=== PATIENT | male | born 1960 | race Two or more races ===

== ENCOUNTER 2024-11-24 07:10 | Outpatient (AMB) | payer OTHER, SELFPAY ==
--- OUTSIDE RECORDS SUMMARY | 2024-11-24 07:12 | XMS_ITS | Encounter Summary ---
Author Organization [employer] Address [address] [facility] [address] [place] [address] Care Team Providers Care Public Health Representative Name Role Phone Donta Mike MD Primary Care Prov ider Reason for Visit * Reason Comments Med Change Request Encounter Details Date Type Department Care Team ([facility] st Contact Info) Description 11/22/2024 Refill C [facility] [address] [place], [place] [phone] Donta Mike MD [address] [place] [address] Social History Tobacco Use Types Packs/Day Years Used Date Smoking Tobacco: Every Day Cigarettes 0.5 43.5 Started: 1980 Smokeless Tobacco: Never Alcohol Use Standard Drinks/Week Comments Never 0 (1 standard drink = 0.6 oz pur e alcohol) Depression Answer Date Recorded Patient Health Questionnaire-9 Score 17 09/26/2024 Patient Health Questionnaire-9 Score 17 09/26/2024 Last PHQ-9: Questionnaire Data Not on file 0 09/26/2024 Housing Stability Answer Date Recorded What is your housing situation today? I have mesfin leung 09/22/[address] you li ve. Do you have problems with any of the following? None of the above 09/22/2024 Food Insecurity Answer Date Recorded Within the past 12 months, y ou worried that your food would run out before you got money to buy more: Never True 09/22/2024 Within the past 12 months,th e food you bought just didn't last and you didn't have enough money to get more: Never True Transportation Answer Date Recorded In the past 12 months, has l ack of transportation kept you from medical appts, meetings, work or from getting things needed for daily living? No 09/22/2024 Utilities Answer Date Recorded In the past 12 months, has t he electric, gas, oil or water company threatened to shut off services in your home? No 09/22/2024 Depression Answer Date Recorded Patient Health Questionnaire-2 Score 4 09/26/2024 Internet Access Answer Date Recorded Internet Access Q1 Yes 09/22/2024 Internet Access Q2 Not on file 09/22/2024 Sex and Gender Information Value Date Recorded Sex Assigned at Male 08/23/2024 10:58 AM EDT Legal Sex Male 10:48 AM EDT Gender Identity Male 08/23/2024 10:58 AM EDT Sexual Orientation Straight 08/30/2024 10 :27 AM EDT documented as of this encounter Miscellaneous Notes * Telephone Encounter - Courtney Salazar LPN - 11/22/2024 3:29 PM EDT Rx generated and faxed to [facility] ----- Message from Donta Avalos MD sent at 11/22/2024 12:01 PM EDT ----- Please send DME for 1 point cane ICD R26.2 documented in this encounter Plan of Treatment Upcoming Encounters Date Type Department Care Team (Late st Contact Info) Description 12/23/2024 8:45 AM EDT Telemedicine [facility] [address] [place] [address] Donta Mike MD [address] [place] [address] documented as of this encounter Visit Diagnoses Not on filedocumented in this encounter Additional Health Concerns Assessment Noted Time PHQ-9 Depression Total Score: 17 025 3:19 PM EDT documented as of this encounter Care Teams Public Health Representative Relationship Specialty Start Date End Date Donta Mike MD [address] [place] [id number] PCP - General Internal Medicine 08/30/24 documented as of this encounter
--- OUTSIDE RECORDS SUMMARY | 2024-11-24 07:12 | XMS_ITS | Clinical Summary ---
Author Organization [address] [facility] Address [address] [place] [address] Phone Care Team Providers Care Bridge Construction Inspector Name Role Phone Donta Mike Primary Care Provide r Social History Tobacco Use Types Packs/Day Years Used Date Smoking Tobacco: Never Assessed Sex and Gender Information Value Date Recorded Sex Assigned at Not on file Legal Sex Male 7:51 AM EDT Gender Identity Not on file Sexual Orientation Not on file Plan of Treatment Upcoming Encounters Date Type Department Care Team ([facility] st Contact Info) Description 12/08/2024 9:45 AM EDT Office Visit Orthopedic Surgery - [place] [phone] [phone] Stanley Mayen DPM [address] [address] Health Maintenance Due Date Last Done Comments Diabetes: Annual GFR (Glomer ular Filtration Rate) 1961 Diabetes: Annual Foot Exam 10/25/1971 Diabetes: Annual Retina Eye Exam 10/25/1971 DTaP,Tdap,and Td Vaccines (1 - Tdap) 1980 Pneumococcal Vaccine: 50+ Ye ars (1 of 2 - PCV) 1980 Zoster Vaccines (1 of 2) 10/25/2011 COVID-19 Vaccine ( - 2023-2 5 season) 2024 Cholesterol Screening (Lipid Panel) 09/28/2024 Colorectal Cancer Screening: Colonoscopy 09/28/2024 Depression Screening 09/28/2024 Diabetes: Annual Urine Albumin-Creatinine Ratio (uACR) 09/28/2024 Diabetes: Blood Sugar Contro l Test (HGBA1C) 09/28/2024 HIV Screening 09/28/2024 Hepatitis C Screening 09/28/2024 Medicare Annual Wellness Visit 09/28/2024 Social Influencers of Health Screening 09/28/2024 Influenza Vaccine (#1) 2025 RSV Immunization Adult Patie nts (1 - 1-dose 75+ series) 2036 HIB Vaccines Aged Out No longer eligi ble based on patient's age to complete this topic HPV Vaccines Aged Out No longer eligi ble based on patient's age to complete this topic Hepatitis A Vaccines Aged Out No long er eligible based on patient's age to complete this topic Hepatitis B Vaccines Aged Out No long er eligible based on patient's age to complete this topic IPV Vaccines Aged Out No longer eligi ble based on patient's age to complete this topic MMR Vaccines Aged Out No longer eligi ble based on patient's age to complete this topic Meningococcal ACWY Vaccine Aged Out N o longer eligible based on patient's age to complete this topic Meningococcal B Vaccine Aged Out No l onger eligible based on patient's age to complete this topic RSV Immunization Patients Un charla 20 months Aged Out No longer eligible b ased on patient's age to complete this topic Varicella Vaccines Aged Out No longer eligible based on patient's age to complete this topic Insurance [facility] MEDICARE Member Subscriber Plan / Payer (Ef fective 2024-Present) Name:Harsha KIRKPATRICK Relation to Subscriber:Self Name:Javed Kirkpatrick Payer ID:[id number] Group ID:[id number] Type:Not on file Address: [address]HEED[address] OLIVER [facility] [place] [address] Care Teams Bridge Construction Inspector Relationship Specialty Start Date End Date Donta Mike [address] [place], [place] PCP - General Internal Medicine 09/28/24
--- NOTE | 2024-11-24 07:16 | A.OFFVIS_ITS ---
Vital Signs 11/24/24 07:42 Height 6 ft 3 in Weight 199 lb BMI 24.9 BP 112/57 L Blood Pressure Location Lt brachial Position Sitting Pulse 56 Pulse Oximetry (%) 98 Oxygen Delivery Method Room Air Intake Visit Reasons: colo screening Intake Note: Patient new consult for 3rd Colonoscopy screening. last [address] Patient cc: Nauseas, constipation, intestine irritation, GERD, and denies any other GI issues. Hx of hemorrhoids. Surgical Services Manager Required: Yes Surgical Services Manager Name: Lizy [phone] Accompanied by: Self / Same As Patient Allergies No Known Allergies Allergy (Verified 11/24/24 07:16) HPI HPI colo screening: Details: Patient is a 64-year-old male with PMH of MDD, HTN, HLD, ?A-fib, diabetes and GERD . Referred by PCP for pre colonoscopy screening. Javed presents for pre-colonoscopy evaluation. Last colonoscopy was five years ago in [place], with a history of polyp removal at each prior procedure. He reports bowel movements every two to three days with hard stools, consistent with chronic constipation. He denies hematochezia. He describes abdominal discomfort related to constipation, intermittent intestinal irritation, and daily morning nausea, characterized as a sensation of wanting to vomit. He also notes episodic acid reflux with regurgitation of food and acid, occurring about three times per week, mostly in the morning, and accompanied by a warm sensation in the chest but no dysphagia. He denies significant weight change or appetite loss. He reports left-sided abdominal weakness, etiology unclear. He previously used linaclotide for constipation, which improved bowel regularity, and currently uses pantoprazole for reflux, which provides partial relief. History notable for prior bypass surgery and atrial fibrillation. Cardiac follow-up scheduled for December 14 in [place]. Blood glucose at home is reported as 120?130 mg/dL Patient denies: fever/chills, vomiting, appetite changes, dysphasia, unintentional wt loss or melena/hematochezia. Social hx: -denies ETOH use -denies recreational drug use -current every day smoker at 5-6 cigarettes/day - family hx as below -denies personal hx of CA -tolerated anesthesia in the past without difficulty. [facility] Medical History (Updated 11/24/24 @ 08:28 by Alysha Leigh CNP) IBS (irritable bowel syndrome) Acid reflux Colon cancer screening Type 2 diabetes mellitus Hypertension CAD (coronary artery disease) Nicotine dependence, cigarettes, uncomplicated Surgical History (Updated 11/24/24 @ 07:40 by Maryse Cope) History of esophagogastroduodenoscopy (EGD) Hx of colonoscopy History of lumbar surgery History of repair of left rotator cuff History of coronary artery bypass graft x 3 Family History Mother Coronary arteriosclerosis Diabetes HTN (hypertension) Father Diabetes Prostate CA Social History Household Members: Family Alcohol intake: never Patient Tobacco Use Status: Current everyday Tobacco user Tobacco use type: Cigarette Cigarette Packs Per Day: 0.5 Cigarettes Per Day: 21.7 Years Smoked: 43.5 Review of Systems Const Reports as per HPI ENT Reports as per HPI Card Reports as per HPI Resp Reports as per HPI GI Reports as per HPI Reports as per HPI Physical Exam Vital Signs: Last Vital Signs Pulse 56 11/24/24 07:42 BP 112/57 L 11/24/24 07:42 Pulse Ox 98 11/24/24 07:42 Oxygen Delivery Method Room Air 11/24/24 07:42 BMI result Body Mass Index 24.9 Const General: healthy appearing, no acute distress and well developed Nutritional Appearance: well nourished Orientation/consciousness: patient oriented x3 HEENT Head: Yes normal to inspection, Yes normocephalic and Yes atraumatic Face and sinus: Yes normal facial exam Eyes General: appearance normal, both eyes and all related structures Neck Neck: Yes normal visual inspection Resp Effort & Inspection: normal respiratory effort, able to speak in complete sentences, no tracheal deviation and symmetric chest movement Auscultation: clear to auscultation bilaterally Cardio Jugular venous distension: no JVD Rate: regular rate Rhythm: regular rhythm Heart sounds: S1 normal heart sound present, S2 normal heart sound present, no gallops and no murmurs GI Inspection: Yes normal to inspection, No distended and Yes scar (surgical scar to mid chest) Palpation (GI): Soft to palpation, not firm, nontender and No hepatosplenomegaly present Auscultation: normal bowel sounds Neuro General: patient oriented x3 Gait exam (Neuro): Normal gait present Psych Appearance: grossly normal Mental Status: mental status grossly normal Speech and movement: Normal speech and movement present Affect: normal affect Attitude: cooperative Thought process: Normal thought process present Thought content: Normal thought content present Insight: Good insight present (Psych) Judgement: Good judgement present (Psych) Assessment & Plan Assessment & Plan (1) Colon cancer screening: Code(s): Z12.11 - Encounter for screening for malignant neoplasm of colon Category: Medical Plan: Due for polyp surveillance colonoscopy. No alarm Features He will need Cardiology clearance. Pt to call with the contact details for his Research Associate Professor. Medications: -prescriptions for laxative tablets and miralax sent to pharmacy; instructions for Gatorade purchase and clear liquid diet given. understands diabetes medications and ASA will need to be held days prior to procedure. Nurse to review med holds per protocol. Patient educated on scheduling process, procedure preparation, including avoiding certain foods and ensuring clear liquid intake Advised on necessity for ride post-procedure due to sedation. (2) Acid reflux: Code(s): K21.9 - Gastro-esophageal reflux disease without esophagitis Category: Medical Qualifiers: Esophagitis presence: esophagitis presence not specified Qualified Code(s): K21.9 - Gastro-esophageal reflux disease without esophagitis Plan: Episodic reflux with regurgitation, partially responsive to pantoprazole, with classic triggers and symptoms. Additional Tests: Upper endoscopy at time of colonoscopy post cardiac clearance Medications: Continue pantoprazole as prescribed by PCP. Encouraged to take pantoprazole as prescribed, taken at least 30-60 minutes before a meal. Education on GERD prevention : -Advised against heavy meals; encouraged small, frequent meals instead of large ones. - Instructed to remain upright for 2?3 hours after eating. - Advised to avoid late-night meals, spicy foods, caffeine, alcohol, known dietary triggers, and tight-fitting clothing. - Emphasis placed on gradual implementation of lifestyle changes to improve adherence and symptom control. (3) IBS (irritable bowel syndrome): Code(s): K58.9 - Irritable bowel syndrome, unspecified Category: Medical Qualifiers: Irritable bowel syndrome type: with constipation Qualified Code(s): K58.1 - Irritable bowel syndrome with constipation Plan: Chronic constipation with hard stools, improved with linaclotide, and associated abdominal discomfort and nausea. Need to optimize bowel regimen for colonoscopy prep and address persistent symptoms. We will attempt to obtain records from previous GI Additional Tests: Basic labs ordered to evaluate for metabolic or other contributors to nausea. Medications:linaclotide refill initiated. Reinforced lifestyle modifications to promote regularity: -higher fiber diet, examples provided -adequate hydration with water -150 minutes of moderate intensity exercise per week Follow-Up: After cardiology clearance; reassess bowel regimen and symptoms prior to colonoscopy. Plan Follow-up in two month or sooner as needed Time: I spent a total of 60 minutes on the date of encounter which includes: Preparing to see the patient (reviewed previous documentation, test results and medical history) Performing a medically appropriate exam and/or evaluation Ordering medications, tests, and procedures Documenting clinical information in the health record Orders: Orders Complete Blood Count Auto Diff 11/24/24 K58.1 - Irritable bowel syndrome with constipation Basic Metabolic Panel 11/24/24 K21.9 - Gastro-esophageal reflux disease without esophagitis IRON PROFILE 11/24/24 K58.1 - Irritable bowel syndrome with constipation Medications: New bisacodyl Take four tablets once for 1 day per colonoscopy instructions 5 mg PO ONCE 4 tabs 0RF 1 day polyethylene glycol 3350 (Miralax) per colonoscopy prep instructions 238 grams PO ONCE 238 grams 0RF linaclotide Take one tablet once daily 145 mcg PO DAILY 30 caps 0RF Coding Level of Care Code New Pt New Pt Level 5 (04892) Patient Type New Diagnoses Colon cancer screening Z12.11 Gastroesophageal reflux disease, 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 esophagitis present K21.9 Esophagitis presence: esophagitis presence not specified Irritable bowel syndrome with constipation K58.1 Irritable bowel syndrome type: with constipation
[2024-11-24 07:42] VITALS: BP 112/57; PULSE 56; O2SAT 98; BMI 24.9
== END 2024-11-24 08:47 | disposition home or self-care (01) ==
LOC: HO.HGI 07:11
PROVIDERS: PCP Internal Medicine; Visit Provider Nurse Practitioner Family
DX: K21.9 Gastro-esophageal reflux disease without esophagitis (principal); K58.1 Irritable bowel syndrome with constipation
CPT/HCPCS: 99205

== ENCOUNTER → 2024-11-24 07:10 | Outpatient (BNVA) | payer OTHER, SELFPAY | PROVIDERS: PCP Internal Medicine; Visit Provider Nurse Practitioner Family | DX: Z12.11 Encounter for screening for malignant neoplasm of colon (principal); K21.9 Gastro-esophageal reflux disease without esophagitis; K58.1 Irritable bowel syndrome with constipation | CPT/HCPCS: 99202 ==

== ENCOUNTER 2024-11-28 08:21 | Outpatient (REF) | payer OTHER, SELFPAY ==
--- OUTSIDE RECORDS SUMMARY | 2024-11-28 08:28 | XMS_ITS | Encounter Summary ---
Author Organization [employer] Address [address] [facility] 7t [place] [address] Care Team Providers Care Hasher Machine Operator Name Role Phone Donta Mike MD Primary Care Prov ider Reason for Visit * Reason Comments Med Change Request Encounter Details Date Type Department Care Team ([facility] st Contact Info) Description 11/22/2024 Refill C [facility] [address] [place], [place] [phone] Donta Mike MD [address] [place] [address] Social History Tobacco Use Types Packs/Day Years Used Date Smoking Tobacco: Every Day Cigarettes 0.5 43.6 Started: 1980 Smokeless Tobacco: Never Alcohol Use [...] Info) Description 12/23/2024 8:45 AM EDT Telemedicine [facility] [address] [place] [address] Donta Mike MD [address] [place] [address] documented as of this encounter Visit Diagnoses Not on filedocumented in this encounter Additional Health Concerns Assessment Noted Time PHQ-9 Depression Total Score: 17 025 3:19 PM EDT documented as of this encounter Care Teams Hasher Machine Operator Relationship Specialty Start Date End Date Donta Mike MD [address] [place] [address] PCP - General Internal Medicine 08/30/24 documented as of this encounter
--- OUTSIDE RECORDS SUMMARY | 2024-11-28 08:28 | XMS_ITS | Clinical Summary ---
Author Organization 175 [facility] Address [address] [place] [address] Phone Care Team Providers Care Bird Cage Assembler Name Role Phone Donta Mike Primary Care Provide r Social History Tobacco Use Types Packs/Day Years Used Date Smoking Tobacco: Never Assessed Sex and Gender Information Value Date Recorded Sex Assigned at Not on file Legal Sex Male 7:51 AM EDT Gender Identity Not on file Sexual Orientation Not on file Plan of Treatment Upcoming Encounters Date Type Department Care Team ([facility] st Contact Info) Description 12/08/2024 9:45 AM EDT Office Visit Orthopedic Surgery - [place] [address] [phone] Stanley Mayen DPM [address] [address] Health Maintenance Due Date Last Done Comments [...] patient's age to complete this topic Insurance [facility] MEDICARE Member Subscriber Plan / Payer (Ef fective 2024-Present) Name:Harsha KIRKPATRICK Relation to Subscriber:Self Name:Javed Kirkpatrick Payer ID:[id number] Group ID:[id number] Type:Not on file Address: [address]HE[address] OL[address] [facility] [place] [address] Care Teams Bird Cage Assembler Relationship Specialty Start Date End Date Donta Mike [address] [place], [place] PCP - General Internal Medicine 09/28/24
[2024-11-28 14:08] LABS: MANUAL DIFF FLAG NO
[2024-11-28 14:15] LABS: Hematocrit 39.8 % (42.0-52.0); Hemoglobin 13.1 g/dl (14.0-18.0); Imm Gran Abs Auto 0.02 X10*3/uL (0.00-0.03); Imm Gran Pct Auto 0.3 % (0.0-0.4); Lymphocytes Absolute Auto 2.9 X10*3/uL (1.2-4.9); Mean Corpuscular HGB Conc 32.9 g/dl (31.0-36.0); Mean Corpuscular Hemoglobin 29.0 pg (27.0-33.0); Mean Corpuscular Volume 88.2 fL (80.0-98.0); NRBC Abs Auto 0.000 X10*3/uL (0.0-0.012); NRBC Pct Auto 0.0 /100WBC (0.0-0.2); Platelet Count 214 X10*3/uL (160-400); Red Blood Count 4.51 X10*6/uL (4.60-5.80); White Blood Count 6.2 X10*3/uL (4.8-10.8)
[2024-11-28 14:30] LABS: Anion Gap 11 (12-20); Blood Urea Nitrogen 11 mg/dL (9-16); Calcium 9.2 mg/dL (8.4-10.2); Carbon Dioxide 25 mmol/L (22-29); Chloride 106 mmol/L (96-108); Estimated Glomerular Filt Rate > 60; Iron 123 mcg/dL (45-160); Percent Iron Saturation 48 % (15-50); Potassium 3.9 mmol/L (3.3-5.1); Sodium 138 mmol/L (135-145); Total Iron Binding Capacity 256 mcg/dL (228-428); Unsaturated Iron Binding 133 ug/dL
[2024-11-28 14:31] LABS: Cholesterol 163 mg/dL (<200); HDL Cholesterol 53 mg/dL (>40); Triglycerides 56 mg/dL (<150)
[2024-11-28 14:47] LABS: Microalbum/Creatinine Ratio Ur 85.5 ug/mg cr (<30)
[2024-11-29 08:41] LABS: HIV Num 1 0.06 S/CO (0.00-0.99); ~HepC Num1 0.56 S/CO (0.00-0.79); ~Hepatitis C Antibody Nonreactive (Nonreactive)
== END 2024-11-28 08:22 | disposition home or self-care (01) ==
LOC: HO.CHCLDS 08:21
PROVIDERS: PCP Internal Medicine; Visit Provider Nurse Practitioner Family
DX: E11.9 Type 2 diabetes mellitus without complications (principal); K58.1 Irritable bowel syndrome with constipation; K21.9 Gastro-esophageal reflux disease without esophagitis
CPT/HCPCS: 36415; 80048; 80061; 82043; 82570; 83540; 84443; 85025; 86803; 87389

== ENCOUNTER 2024-12-09 08:53 | Outpatient (AMB) | payer OTHER, SELFPAY ==
--- NOTE | 2024-12-09 07:35 | A.OFFVIS_ITS ---
Intake Visit Reasons: LDCT Allergies No Known Allergies Allergy (Verified 11/29/24 11:20) HPI HPI LDCT: Details: Initial visit for this 64yo smoker with a 25PYH. Patient started smoking at age 26 for 38years at 1/2-1ppd. . Denies marijuana use. Denies second hand smoke exposure. Denies exposure to chemicals or substances like asbestos. . Denies known family history of lung cancer. Denies personal history of cancers. Denies chest CT in last year. . Denies recent travel outside the [place]. Denies recent respiratory illness or recent hospitalization for respiratory issues. Denies testing positive for COVID. Admits receiving COVID Vaccine. . Denies fever, chills, new/worsening cough, hemoptysis, hoarseness or dysphagia. Denies significant chest pain, significant dyspnea or unintentional weight loss. Patient Lung Cancer Screening Questionnaire reviewed with patient by provider. . Shared Decision Making Completed. Patient meets criteria. Discussed in detail with patient, the risk vs benefit of LDCT screening. Patient consents to proceed with scan. Discussed smoking cessation. Macanese speaking patient - interpretive services used - ID #[id number] [facility] Medical History (Updated 12/09/24 @ 09:14 by Nicole Whittington PA-C) IBS (irritable bowel syndrome) Acid reflux Colon cancer screening Type 2 diabetes mellitus Hypertension CAD (coronary artery disease) Nicotine dependence, cigarettes, uncomplicated Surgical History (System 11/29/24 @ 11:20 by Halie Camarillo) History of esophagogastroduodenoscopy (EGD) Hx of colonoscopy History of lumbar surgery History of repair of left rotator cuff History of coronary artery bypass graft x 3 Family History Mother Coronary arteriosclerosis Diabetes HTN (hypertension) Father Diabetes Prostate CA Social History (Updated 12/09/24 @ 09:14 by Nicole Whittington PA-C) Household Members: Family Alcohol intake: never Patient Tobacco Use Status: Current everyday Tobacco user Tobacco use type: Cigarette Cigarette Packs Per Day: 0.5 Cigarettes Per Day: 21.7 Years Smoked: (onset 26yo, x 38yrs, max 1ppd, now 1/2ppd, 25pyh) Assessment & Plan Assessment & Plan (1) Nicotine dependence, cigarettes, uncomplicated: Comment: (onset 26yo, x 38yrs, max 1ppd, now 1/2ppd, 25pyh) Code(s): F17.210 - Nicotine dependence, cigarettes, uncomplicated Category: Medical Plan: - SDM visit completed today in office. - Patient meets criteria for LDCT for lung cancer screening purposes and is asymptomatic. - Smoking cessation counseling offered. Patients can always call [phone]. - Will arrange for a LDCT scan of the chest for screening purposes at [facility]. - Risks, benefits, and alternatives were discussed in detail and the patient agrees to proceed. - Risks discussed include but are not limited to: radiation exposure, anxiety during testing and while awaiting results, false negatives, false positives and possibility of additional intervention such as further imaging or surgical procedures for benign disease. - Benefits are obviously detection of lung cancer at an early stage which can lead to improved outcomes. - Discussed the importance of screening program compliance with adherence to yearly LDCT scan as scheduled - or sooner interval scans for personalized screening regimen. - Discussed follow up plan. Our office will send a letter discussing results and if needed set up phone call and office visit based on CT findings. - Patient educated on results categorization and the management decisions for suspicious findings potentially found on the screening LDCT scan. Any patient with a Lung RADS score of 3 or 4 will be reviewed by a multidisciplinary team at [facility] to form a plan of action in regards to scan findings. - If further work up is warranted for a suspicious lung finding this will be followed by the Lung Cancer Screening program in conjunction with the Thoracic Surgery Department at [facility]. - A copy of the office note and LDCT will be sent to the patient's PCP - as well as documentation on any associated further plans of care. - Incidental findings on LDCT are the PCP's responsibility. These findings are indicated with an S finding on the LDCT Assessment. A note discussing the findings will be sent to the PCP who is then responsible for further management. - All questions answered.? Coding Level of Care Code Lung Cancer Screening G0296 Diagnoses Nicotine dependence, cigarettes, uncomplicated F17.210
--- OUTSIDE RECORDS SUMMARY | 2024-12-09 09:08 | XMS_ITS | Clinical Summary ---
Author Organization 175 [facility] Address 175 [place] [address] Phone Care Team Providers Care Reroller Hand Name Role Phone FloresDonta Stanley Primary Care Provide r Allergies No known active allergies Medications ammonium lactate (AMLACTIN) 12 % cream Apply topically if needed for dry skin. 560 g 2 5 12/09/19 26 Active Encounters Date Type Department Care Team Description 12/08/2024 9:45 AM EDT Office Visit Orthopedic Surgery [place] [address] [phone] Stanley Mayen DPM Controlled type 2 diabetes mellitus with diabetic polyneuropathy, without long-term current use of insulin (CMS/HCC V24, CMS/HCC V28) (Primary Dx); PVD (peripheral vascular disease) (CMS/HCC V24); Arthritis of both feet; Neuropathy; Onychomycosis; Callus from Last 3 Months Social History Tobacco Use Types Packs/Day Years Used Date Smoking Tobacco: Never Assessed Sex and Gender Information Value Date Recorded Sex Assigned at Not on file Legal Sex Male 7:51 AM EDT Gender Identity Not on file Sexual Orientation Not on file Plan of Treatment Upcoming Encounters Date Type Department Care Team ([facility] st Contact Info) Description 02/13/2025 9:30 AM EDT Office Visit Orthopedic Surgery [facility] [address] [phone] Stanley Mayen DPM [address] [address] Health Maintenance Due Date Last Done Comments Diabetes: Annual Foot Exam 10/25/1971 Diabetes: Annual Retina Eye Exam 10/25/1971 Pneumococcal Vaccine: 50+ Years (2 of 2 - PCV) 05/14/2007 05/14/2006 Zoster Vaccines (1 of 2) 10/25/2011 DTaP,Tdap,and Td Vaccines (2 - Td or Tdap) 02/07/2019 02/07/2009 RSV Immunization Adult Patients (1 - Risk 60-74 years 1-dose series) 2021 COVID-19 Vaccine (1 - 2023-2 5 season) 2024 Depression Screening 05/11/2024 Colorectal Cancer Screening: Colonoscopy 09/28/2024 Diabetes: Annual Urine Albumin-Creatinine Ratio (uACR) 09/28/2024 Lung Cancer Screening (Low Dose CT) 09/28/2024 Medicare Annual Wellness Visit 09/28/2024 Social Influencers of Health Screening 09/28/2024 Influenza Vaccine (#1) 2025 9, 05/14/2006 Diabetes: Blood Sugar Contro l Test (HGBA1C) 05/25/2025 11/22/2024 Diabetes: Annual GFR (Glomerular Filtration Rate) 11/28/2025 11/28/2024 Hypertension/CHF/CAD Annual BMP Blood Test 11/28/2025 11/28/2024 Cholesterol Screening (Lipid Panel) 11/28/2029 11/28/2024 HIV Screening Completed 11/28/2024 Hepatitis C Screening Completed 11/28/2024 HIB Vaccines Aged Out No longer eligi [...] to complete this topic RSV Immunization Patients Under 20 months Aged Out No longer eligible b ased on patient's age to complete this topic Varicella Vaccines Aged Out No longer eligible based on patient's age to complete this topic Insurance [employer] MEDICARE Member Subscriber Plan / Payer (Ef fective 2024-Present) Name:Harsha KIRKPATRICK Relation to Subscriber:Self Name:Javed Kirkpatrick Payer ID:[id number] Group ID:[id number] Type:Not on file Address: [facility] [address] [address] Care Teams Reroller Hand Relationship Specialty Start Date End Date Donta Mike [address] [place], [place] PCP - General Internal Medicine 09/28/24
--- OUTSIDE RECORDS SUMMARY | 2024-12-09 09:08 | XMS_ITS | Encounter Summary ---
Author Organization [employer] Address 75 [facility] 7t [place] [address] Care Team Providers Care Artificial Flowers Dyer Name Role Phone Donta Mike MD Primary Care Prov ider Reason for Visit * Reason Comments Med Change Request Encounter Details Date Type Department Care Team ([facility] st Contact Info) Description 11/22/2024 Refill C [facility] [address] [place], [place] [phone] Donta Mike MD [address] [place] [address] Social History Tobacco Use Types Packs/Day Years [...] Info) Description 12/23/2024 8:45 AM EDT Telemedicine [facility]S [address] [place] [address] Donta Mike MD [address] [place] [address] documented as of this encounter Visit Diagnoses Not on filedocumented in this encounter Additional Health Concerns Assessment Noted Time PHQ-9 Depression Total Score: 17 025 3:19 PM EDT documented as of this encounter Care Teams Artificial Flowers Dyer Relationship Specialty Start Date End Date Donta Mike MD [address] [place] [address] PCP - General Internal Medicine 08/30/24 documented as of this encounter
== END 2024-12-09 10:35 | disposition home or self-care (01) ==
LOC: HO.HPS 08:54
PROVIDERS: PCP Internal Medicine; Referring Provider Internal Medicine; Visit Provider Physician Assistant Medical
DX: F17.210 Nicotine dependence, cigarettes, uncomplicated (principal)
CPT/HCPCS: G0296

== ENCOUNTER 2024-12-09 09:15 | Outpatient (REF) | payer OTHER, SELFPAY ==
--- NOTE | ~2024-12-09 | CT_ITS ---
EXAMINATION: CT LOW-DOSE SCREENING CHEST WITHOUT CONTRAST CLINICAL INFORMATION: 64-year-old male, current smoker, 37 pack years. Lung cancer screening. COMPARISON: None available. TECHNIQUE: Multidetector volumetric CT imaging of the chest is performed on a Siemens SOMATOM Definition scanner without contrast using low dose technique. Additional 2D coronal and sagittal reformatted images and axial 3D maximum intensity projection (MIP) images are generated on the CT workstation. This CT examination was performed using dose optimization techniques as appropriate, variously including the following: *Automated exposure control *Adjustment of mA and/or kV according to patient size (this includes techniques or standardized protocols for targeted exams where dose is matched to indication/reason for exam; i.e. extremities or head) *Use of iterative reconstruction technique FINDINGS: PULMONARY NODULES: 2 mm nodule right upper lobe centrally (series 5, image 42). 3 mm minor fissural nodule (series 5, image 86), consistent with intrapulmonary lymph node. 2 mm nodule right middle lobe (series 5, image 107). 4 mm pleural-based nodule right middle lobe (series 5, image 113). 3 mm nodule left upper lobe superior lingular (series 5, image 97). 2 mm nodule left lower lobe posteriorly (series 5, image 128). LUNGS: Lungs are well expanded and clear bilaterally. No abnormal opacities or consolidations. No effusion or pneumothorax. Small airways normal. Central airways normal. No interstitial findings. MEDIASTINUM: Diffuse enlargement of the thyroid left greater than right, consistent with goiter. This extends substernally. Prior median sternotomy and CABG. Ascending aortic aneurysmal dilatation measuring up to 4.6 cm. Remainder of the aorta is normal in caliber. Heart size normal. No pericardial effusion. No esophageal abnormality. No adenopathy or mass. CORONARY ARTERY CALCIFICATION: Heavy coronary calcifications. CHEST WALL/AXILLA: Unremarkable. UPPER ABDOMEN: Included portions of the solid organs in the upper abdomen unremarkable on noncontrast imaging. OSSEOUS STRUCTURES: No suspicious lytic or blastic bone lesions. Mild to moderate degenerative changes of the central and inferior thoracic spine. CT/CT lung screening IMPRESSION: 1. There are a few scattered pulmonary nodules measuring up to 4 mm. 2. The lungs are clear bilaterally. 3. Substernal goiter. 4. Ascending aortic aneurysmal dilatation measuring up to 4.6 cm. 5. Heavy coronary calcifications. Sternotomy and CABG. ASSESSMENT: 1. Lung-RADS Category 2: Benign appearance or behavior of nodules. 2. Lung-RADS Category S: None. RECOMMENDATION: Continued routine annual low-dose CT lung screening in 1 year is recommended. An order for CT CHEST LOW DOSE CANCER SCREENING ([id number]) can be placed. Electronically signed by: Robb Veronica MD 12/09/2024 09:59 AM EDT
== END 2024-12-09 09:16 | disposition home or self-care (01) ==
LOC: HO.CT 09:15
PROVIDERS: PCP Internal Medicine; Visit Provider Physician Assistant Medical
DX: Z12.2 Encounter for screening for malignant neoplasm of respiratory organs (principal); F17.210 Nicotine dependence, cigarettes, uncomplicated
CPT/HCPCS: 71271; G0296

== ENCOUNTER → 2024-12-09 09:18 | Outpatient (BNV) | payer OTHER, SELFPAY | PROVIDERS: PCP Internal Medicine; Visit Provider Radiology Diagnostic Radiology | DX: F17.210 Nicotine dependence, cigarettes, uncomplicated (principal) | CPT/HCPCS: 71271 ==

== ENCOUNTER 2024-12-12 06:42 | Outpatient (RCR) | payer OTHER, SELFPAY ==
[2024-12-12 06:56] VITALS: BP 134/73; PULSE 60; O2SAT 100
== END 2025-01-12 14:57 | disposition home or self-care (01) ==
LOC: HO.PT 06:42
PROVIDERS: PCP Internal Medicine; Visit Provider Internal Medicine
DX: H81.13 Benign paroxysmal vertigo, bilateral (principal)
CPT/HCPCS: 97112; 97162

== ENCOUNTER 2024-12-13 14:21 | Outpatient (AMB) | payer OTHER, SELFPAY ==
--- NOTE | 2024-12-13 14:47 | A.OFFVIS_ITS ---
Intake Visit Reasons: question of Epididymitis Intake Note: Patient is present for QUESTIONS OF EPIDIDYMITIS Urology Medication:NONE Antibiotic Allergy:NONE Blood Thinner:ASPIRIN Principal Archaeologist Required: No Principal Archaeologist Services: Principal Archaeologist Present Principal Archaeologist Name: Berna Lucia340 Allergies No Known Allergies Allergy (Verified 12/13/24 15:31) Medication List - Last Reconciled 12/13/24 by LUIS F Chavis aspirin 81 mg PO DAILY atorvastatin (Lipitor) 80 mg PO BEDTIME bisacodyl 5 mg PO ONCE 1 day linaclotide 145 mcg PO DAILY metformin 1,000 mg PO DAILY metoprolol succinate ER 25 mg PO DAILY pantoprazole 40 mg PO DAILY polyethylene glycol 3350 (Miralax) 238 grams PO ONCE sertraline 50 mg PO DAILY sitagliptin phosphate (Januvia) 50 mg PO DAILY zolpidem ER 12.5 mg PO BEDTIME PRN HPI Comments Details: Javed is a 64-year-old Irish-speaking male patient of Dr. Mark Avalos. He has a past medical history of IBS, as needed refills hypertension, type 2 diabetes, coronary artery disease, and nicotine dependence. He presents to the office today as a new patient for epididymitis. In discussion with the patient today he reports following up with his PCP in June for ongoing right-sided testicular discomfort he has been experiencing at which time he was treated with doxycycline for 10 days for possible epididymitis. In assessment of the patient today the penis is uncircumcised and patient with significant tenderness to the right epididymis. We did discussed potential causes of epididymitis. When asked he reports he is not currently sexually active. Unable to obtain urine for urinalysis as patient unable to void. He denies any bothersome urinary issues. He denies urinary urgency, urinary frequency, incontinence, nocturia, hematuria, dysuria, foul smelling urine, changes to urinary stream, flank pain, fever, and or chills. He is happy with his current voiding parameters. We discussed obtaining scrotal ultrasound and PSA for further assessment evaluation. All questions were answered. He otherwise offers no other issues or concerns at this time. [facility] Medical History (Updated 12/13/24 @ 15:28 by LUIS F Chavis) IBS (irritable bowel syndrome) Acid reflux Colon cancer screening Type 2 diabetes mellitus Hypertension CAD (coronary artery disease) Nicotine dependence, cigarettes, uncomplicated Surgical History (System 11/29/24 @ 11:20 by Halie Camarillo) History of esophagogastroduodenoscopy (EGD) Hx of colonoscopy History of lumbar surgery History of repair of left rotator cuff History of coronary artery bypass graft x 3 Family History Mother Coronary arteriosclerosis Diabetes HTN (hypertension) Father Diabetes Prostate CA Social History (Updated 12/09/24 @ 09:14 by Nicole Whittington PA-C) Household Members: Family Alcohol intake: never Patient Tobacco Use Status: Current everyday Tobacco user Tobacco use type: Cigarette Cigarette Packs Per Day: 0.5 Cigarettes Per Day: 21.7 Years Smoked: (onset 26yo, x 38yrs, max 1ppd, now 1/2ppd, 25pyh) Review of Systems Const All systems reviewed & are unremarkable except as noted in HPI and below Physical Exam Const General: cooperative, healthy appearing, comfortable, no acute distress, well developed, alert and awake Orientation/consciousness: patient oriented x3 Limitations: language barrier HEENT Head: Yes normal to inspection, Yes normocephalic and Yes atraumatic Ears: hearing grossly normal bilaterally Eyes General: appearance normal, both eyes and all related structures Neck Neck: Yes normal visual inspection and Yes trachea midline Chest Chest palpation & inspection: normal inspection of the chest Resp Effort & Inspection: normal respiratory effort and able to speak in complete sentences Cardio Rate: regular rate GI Inspection: Yes normal to inspection General: Yes no CVA tenderness Male General Exam: Yes normal external exam Penis: normal penis and uncircumcised Meatus: meatus normal Scrotum: scrotum normal Testes: epididymal tenderness (right) Back/Spine/Pelvis Back: no CVA tenderness Skin General skin exam: no rashes or lesions noted Neuro General: patient oriented x3 Extrem General: Yes normal to inspection Psych Appearance: grossly normal and well kempt Mental Status: mental status grossly normal Speech and movement: Normal speech and movement present and Clear speech present Affect: normal affect Attitude: cooperative Thought process: Normal thought process present Thought content: Normal thought content present Insight: Fair insight present (Psych) Judgement: Fair judgement present (Psych) Results AMB Urinalysis, Automated UA Leukoctes 0 Dominic/uL Last Edit by DAYTON Mustafa on 12/13/24 16:08 UA Nitrite Negative Last Edit by [facility]eno [facility] 12/13/[facility] 16:08 UA Urobilinogen 3.5 mg/dL Last Edit by Shayy Briceno [facility] on 12/13/24 16:0 8 UA Protein 0 mg/dL Last Edit by Shayy Briceno [facility] on 12/13/24 16:08 UA pH 5.5 Last Edit by Shayy Briceno [facility] on 12/13/24 16:08 UA Blood 0 Jorge/uL Last Edit by Shayy Briceno [facility] on 12/13/24 16:08 UA Specific [place] 1.025 Last Edit by Shayy Briceno [facility] on 12/13/24 16: 08 UA Ketone Positive Last Edit by Shayy Briceno [facility] on 12/13/24 16:08 UA Bilirubin 0 mg/dL Last Edit by Shayy Briceno [facility] on 12/13/24 16:08 UA Glucose 0 mg/dL Last Edit by Shayy Briceno [facility] on 12/13/24 16:08 Results Reviewed Results Reviewed: Laboratory Last Values Urine pH (Auto) 5.5 12/13/24 16:06 Specific [place] (Auto) 1.025 12/13/24 16:06 Urine Protein (Auto) 0 mg/dL 12/13/24 16:06 Glucose (UA)(Auto) 0 mg/dL 12/13/24 16:06 Urine Ketones (Auto) Positive 12/13/24 16:06 Urine Blood (Auto) 0 Jorge/uL 12/13/24 16:06 Urine Nitrite (Auto) Negative 12/13/24 16:06 Urine Bilirubin (Auto) 0 mg/dL 12/13/24 16:06 Urine Urobilinogen (Auto) 3.5 mg/dL 12/13/24 16:06 Leukocyte Esterase (Auto) 0 Dominic/uL 12/13/24 16:06 Assessment & Plan Assessment & Plan (1) Epididymitis: Code(s): N45.1 - Epididymitis Category: Medical Plan Unable to obtain urine for urinalysis as patient unable to void. Start doxycycline as discussed and prescribed. Will obtain scrotal ultrasound for further assessment evaluation. Will obtain PSA for further assessment evaluation. He currently denies any bothersome urinary issues. He reports be happy with current voiding parameters. We discussed potential causes of epididymitis as well as further treatment options and risks and benefits of these treatment options. All questions were answered. Follow-up in 3 months with imaging and labs; or sooner with any issues, concerns, and or questions. Orders: Orders US scrotum Today N45.1 - Epididymitis Prostate Specific Antigen Today N40.0 - Benign prostatic hyperplasia without lower urinary tract symptoms AMB Urinalysis Automated Today Z13.9 - Encounter for screening, unspecified Medications: New doxycycline hyclate 100 mg PO BID 28 tabs 0RF 14 days N39.0 - Urinary tract infection, site not specified, N45.1 - Epididymitis Patient Instructions: The patient had an opportunity to ask questions regarding the treatment plan. All questions were answered. Physical exam, labs, and imaging were discussed and reviewed in detail. As well as risks, benefits, and discussion of treatment choices. No major barriers to understanding were identified. The patient expressed understanding and agreement with the above treatment plan. The patient was made aware they should contact our office by phone for worsening of their current condition, the appearance of new symptoms, or with any questions or concerns. Compliance is encouraged with any medications and follow up testing that is ordered. It is a privilege to be allowed the opportunity to participate in? your urological care.? Again, if you have any questions or concerns If you have any questions or concerns please do not hesitate to contact me. The office is [phone]. This note is constructed using voice recognition software. While every effort has been made to ensure accuracy women's swim coach errors may have been included. Yours sincerely, LUIS F Chavis Coding Level of Care Code New Pt Level 4 (76613) Diagnoses Epididymitis N45.1
--- OUTSIDE RECORDS SUMMARY | 2024-12-13 15:01 | XMS_ITS | Encounter Summary ---
Author Organization [employer] Address 75 [facility] 7t [place] [address] Care Team Providers Care Adzing And Boring Machine Operator Name Role Phone Donta Mike MD Primary Care Prov ider Reason for Visit * Reason Comments Med Change Request Encounter Details Date Type Department Care Team ([facility] st Contact Info) Description 11/22/2024 Refill C [facility] [address] [place], [place] [phone] Donta Mike MD [address] [place] [address] Social History Tobacco Use Types Packs/Day Years [...] Info) Description 12/23/2024 8:45 AM EDT Telemedicine [facility]S [address] [place] [address] Donta Mike MD [address] [place] [address] documented as of this encounter Visit Diagnoses Not on filedocumented in this encounter Additional Health Concerns Assessment Noted Time PHQ-9 Depression Total Score: 17 025 3:19 PM EDT documented as of this encounter Care Teams Adzing And Boring Machine Operator Relationship Specialty Start Date End Date Donta Mike MD [address] [place] [id number] PCP - General Internal Medicine 08/30/24 documented as of this encounter
--- OUTSIDE RECORDS SUMMARY | 2024-12-13 15:01 | XMS_ITS | Clinical Summary ---
Author Organization 175 [facility] Address 175 [place] [address] Phone Care Team Providers Care Health Care / Medical Job Titles Name Role Phone FloresDonta Stanley Primary Care Provide r Allergies No known active allergies Medications ammonium lactate (AMLACTIN) 12 % cream Apply topically if needed for dry skin. 560 g 2 5 12/09/19 26 Active Encounters Date Type Department Care Team Description 12/08/2024 9:45 AM EDT Office Visit Orthopedic Surgery [place] [address] [phone] Stanley Mayen DPM Controlled type 2 diabetes [...] Upcoming Encounters Date Type Department Care Team ([facility] st Contact Info) Description 02/13/2025 9:30 AM EDT Office Visit Orthopedic Surgery [facility] [address] [phone] Stanley Mayen DPM [address] [address] Health Maintenance Due Date Last Done Comments [...] ID:[id number] Group ID:[id number] Type:Not on file Address: [facility] [address] [address] Care Teams Health Care / Medical Job Titles Relationship Specialty Start Date End Date Donta Mike [address] [place], [place] PCP - General Internal Medicine 09/28/24
== END 2024-12-13 15:31 | disposition home or self-care (01) ==
LOC: HO.HUSH 14:22
PROVIDERS: PCP Internal Medicine; Visit Provider Nurse Practitioner Family
DX: Z13.9 Encounter for screening, unspecified (principal); N45.1 Epididymitis
CPT/HCPCS: 99204

== ENCOUNTER → 2024-12-13 14:21 | Outpatient (BNVA) | payer OTHER, SELFPAY | PROVIDERS: PCP Internal Medicine; Visit Provider Nurse Practitioner Family | DX: N45.1 Epididymitis (principal); N40.0 Benign prostatic hyperplasia without lower urinary tract symptoms | CPT/HCPCS: 81003; 99202 ==

== ENCOUNTER 2024-12-20 07:31 | Outpatient (REF) | payer OTHER, SELFPAY ==
--- NOTE | ~2024-12-20 | CT_ITS ---
EXAMINATION: CT SOFT TISSUE NECK WITH CONTRAST CLINICAL INFORMATION: Neck mass, right-sided. COMPARISON: Correlated to CT lung screening dated December 28, 2020 demonstrated an enlarged thyroid gland. TECHNIQUE: Following the intravenous administration of 65 mL of Omnipaque 350 intravenous contrast, helical imaging was performed in the axial plane with generation of coronal and sagittal reformatted images. This CT examination was performed using dose optimization techniques as appropriate, variously including the following: *Automated exposure control *Adjustment of mA and/or kV according to patient size (this includes techniques or standardized protocols for targeted exams where dose is matched to indication/reason for exam; i.e. extremities or head) *Use of iterative reconstruction technique DLP: 316 mGy centimeter. FINDINGS: There is a skin BB marker placed at the right parotid compartment region. There is no gross soft tissue mass or fluid collections at the region of the BB marker. Skull base, nasopharynx, retropharynx, oropharynx, and hypopharynx demonstrated no gross masses or fluid collections. There is irregularity soft tissue fullness in the right arytenoid epiglottic fold. The glottis is normal. There is a 12 x 5 x 17 mm lobulated low density in the infrahyoid left midline of the thyrohyoid ligament Soft tissue fullness and punctate calcifications in the palatine tonsils, right greater than left side. Director Emergency Department spaces, parapharyngeal spaces demonstrated no gross masses. The salivary glands demonstrated no gross calcifications or masses. The vessels are patent. There are mixed plaques in the carotid bulbs and proximal ICAs pronounced on the left ICA resulting in 60% stenosis of the lumen. No gross masses in the oral cavity or the sublingual compartment. The thyroid gland is heterogeneously enlarged. The right thyroid lobe measures 4 x 3 x 8 cm with heterogeneous low-density nodules. The left thyroid lobe measures 5 x 4 x 9 cm with heterogeneous mixed nodular lesions most dominant measures 4.5 cm extending into the substernal middle mediastinum causing Right lateral deviation of the trachea. Calcified plaques in the thoracic aortic arch and its main branches. There is an aberrant right subclavian artery with a retroesophageal trajectory. The ascending thoracic aorta diameter is 5 cm. Calcified plaques in the cavernous supracavernous segments both ICAs. The left vertebral artery is dominant. Multilevel cervical spondylosis with a reverse curvature apex at C3-4. Polypoid mucosal thickening, ethmoid cells. Tympanic cavities and mastoid air cells are aerated. There is a 30 x 22 x 39 mm heterogeneous soft tissue lesion at the posterior aspect of the suprahyoid, right carotid space. There is no gross displacement or mass effect upon the adjacent carotid arteries. There is extrinsic compression and displacement of the right internal jugular vein. CT/CT soft tissue neck w IV con IMPRESSION: Concerning soft tissue mass lesion in the right aryteno-epiglottic fold and a large 39 mm tumor infiltration/lymphadenopathy level 2, right neck. Recommend direct inspection. Multinodular goiter with a dominant 4.5 cm nodule, left thyroid lobe. 5 cm aneurysm, ascending thoracic aorta. Aberrant right subclavian artery. Tonsillith, bilateral palatine tonsils. Mixed plaques both carotid bulbs and ICAs. Electronically signed by: Javed Miller MD 12/20/2024 08:44 AM EDT
--- OUTSIDE RECORDS SUMMARY | 2024-12-20 07:33 | XMS_ITS | Clinical Summary ---
Author Organization 175 [facility] Address 175 [place] [address] Phone Care Team Providers Care Insurance Underwriting Assistant Name Role Phone FloresDonta Stanley Primary Care Provide r Allergies No known active allergies Medications ammonium lactate (AMLACTIN) 12 % cream Apply topically if needed for dry skin. 560 g 2 5 12/09/19 26 Active Encounters Date Type Department Care Team Description 12/08/2024 9:45 AM EDT Office Visit Orthopedic Surgery [place] [address] [phone] Stanley Mayen DPM Controlled type 2 diabetes [...] Upcoming Encounters Date Type Department Care Team ([facility] st Contact Info) Description 02/13/2025 9:30 AM EDT Office Visit Orthopedic Surgery [facility] [address] [phone] Stanley Mayen DPM [address] [address] Health Maintenance Due Date Last Done Comments [...] ID:[id number] Group ID:[id number] Type:Not on file Address: [facility] [address] [address] Care Teams Insurance Underwriting Assistant Relationship Specialty Start Date End Date Donta Mike [address] [place], [place] PCP - General Internal Medicine 09/28/24
--- OUTSIDE RECORDS SUMMARY | 2024-12-20 07:33 | XMS_ITS | Encounter Summary ---
Author Organization [employer] Address 75 [facility] 7t [place] [address] Care Team Providers Care Assistant Professor Of Physics Name Role Phone Donta Mike MD Primary Care Prov ider Reason for Visit * Reason Comments Med Change Request Encounter Details Date Type Department Care Team ([facility] st Contact Info) Description 11/22/2024 Refill C [facility] [address] [place], [place] [phone] Donta Mike MD [address] [place] [address] Social History Tobacco Use Types Packs/Day Years [...] Care Team (Late st Contact Info) Description 12/22/2024 8:45 AM EDT Telemedicine [facility] MED [facility] PEDS [address] [place] [address] Donta Mike MD [address] [place] [address] documented as of this encounter Visit Diagnoses Not on filedocumented in this encounter Additional Health Concerns Assessment Noted Time PHQ-9 Depression Total Score: 17 025 3:19 PM EDT documented as of this encounter Care Teams Assistant Professor Of Physics Relationship Specialty Start Date End Date Donta Mike MD [address] [place] [id number] PCP - General Internal Medicine 08/30/24 documented as of this encounter
[2024-12-20] MEDS: iohexoL 350 MG/ML 100 ML INFUS..BTL IV (08:15)
== END 2024-12-20 07:32 | disposition home or self-care (01) ==
LOC: HO.CT 07:31
PROVIDERS: PCP Internal Medicine; Visit Provider Internal Medicine
DX: R22.1 Localized swelling, mass and lump, neck (principal)
CPT/HCPCS: 70491; Q9967

== ENCOUNTER → 2024-12-20 07:32 | Outpatient (BNV) | payer OTHER, SELFPAY | PROVIDERS: PCP Internal Medicine; Visit Provider Radiology Diagnostic Radiology | DX: D38.0 Neoplasm of uncertain behavior of larynx (principal) | CPT/HCPCS: 70491 ==

== ENCOUNTER 2025-01-10 07:13 | Outpatient (REF) | payer OTHER, SELFPAY ==
--- OUTSIDE RECORDS SUMMARY | 2025-01-10 07:15 | XMS_ITS | Encounter Summary ---
Author Organization [employer] Address [address] [place] [address] Care Team Providers Care Apparel Rental Clerk Name Role Phone Donta Mike MD Primary Care Prov ider Reason for Visit * Reason Onset Date Comments Medication Question 09/26/2024 Encounter Details Date Type Department Care Team (Late st Contact Info) Description 09/26/2024 Telephone [facility] [address] [place] [address] Donta Mike MD [address], [place] [phone] Medication Question Social History Tobacco Use Types Packs/Day Years Used Date Smoking Tobacco: Every Day Cigarettes 0.5 43.7 Started: 1981 Smokeless Tobacco: Never Alcohol Use [...] AM EDT documented as of this encounter Functional Status * Over the past 2 weeks, how often have you been bothered by any of the following problems? Question Answer Date of Assessment Author Patient Health Questionnaire-2 Score 4 09/08 3:19 PM EDT Albert Avalos * Little interest or pleasure in doing things Answer Date of Assessment Author More than half the days 09/26/2024 3:19 PM EDT Albert Mcclendon * Feeling down, depressed, or hopeless Answer Date of Assessment Author More than half the days 09/26/2024 3:19 PM EDT Albert Mcclendon * Trouble falling or staying asleep, or sleeping too much Answer Date of Assessment Author Nearly every day 09/26/2024 3:19 PM EDT Albert Avalos * Feeling tired or having little energy Answer Date of Assessment Author More than half the days 09/26/2024 3:19 PM EDT Albert Mcclendon * Poor appetite or overeating Answer Date of Assessment Author More than half the days 09/26/2024 3:19 PM EDT Albert Mcclendon * Feeling bad about yourself - or that you are a failure or have let yourself or your family down Answer Date of Assessment Author Several days 09/26/2024 3:19 PM EDT Lay Avalos * Trouble concentrating on things, such as reading the newspaper or watching television Answer Date of Assessment Author Nearly every day 09/26/2024 3:19 PM EDT Albert Avalos * Moving or speaking so slowly that other people could have noticed? Or the opposite - being so fidgety or restless that you have been moving around a lot more than usual. Answer Date of Assessment Author More than half the days 09/26/2024 3:19 PM EDT Albert Mcclendon * Thoughts that you would be better off or hurting yourself in some way Answer Date of Assessment Author Not at all 09/26/2024 3:19 PM EDT Lay Avalos * Patient Health Questionnaire-9 Score Answer Date of Assessment Author 17 09/26/2024 3:19 PM EDT Lay Avalos * How difficult have these problems made it for you to do your work, take care of things at home, or get along with other people? Answer Date of Assessment Author Very difficult 09/26/2024 3:19 PM EDT Lya Avalos * Over the last 2 weeks, how often have you been bothered by any of the following problems? Question Answer Date of Assessment Author Feeling nervous, anxious, or on edge 3 09/08 3:21 PM EDT Albert Avalos Not being able to stop or co ntrol worrying 2 09/26/2024 3:21 PM EDT Albert Avalos Worrying too much about diff erent things 2 09/26/2024 3:21 PM EDT Albert Avalos Trouble relaxing 0 09/26/2024 3:21 PM EDT Albert Mcclendon Being so restless that it is hard to sit still 0 09/26/2024 3:21 PM EDT Albert Avalos Becoming easily annoyed or irritable 1 09/08 3:21 PM EDT Albert Avalos Feeling afraid as if somethi ng awful might happen 3 09/26/2024 3:21 PM EDT Albert Avalos IRAM-7 Total Score 11 09/26/2024 3:21 PM EDT Albert Avalos documented as of this encounter Miscellaneous Notes * Telephone Encounter - Roland Vivas - 09/26/2024 11:42 AM EDT Tc from pt calling in regards to last appt with pcp stating he was supposed to be prescribed pain medication for his back along with medication to treat dizziness. Pt has not received medication as well as glucose test strips and would like a call back to further discuss. Please contact pt at [phone]. (Bahamian Speaker) documented in this encounter Plan of Treatment Upcoming Encounters Date Type Department Care Team (Late st Contact Info) Description 01/24/2025 9:00 AM EDT Telemedicine [facility] [address] [place] [address] Donta Mike MD [address] [place] [address] documented as of this encounter Visit Diagnoses Not on filedocumented in this encounter Additional Health Concerns Assessment Noted Time PHQ-9 Depression Total Score: 17 025 3:19 PM EDT documented as of this encounter Care Teams Apparel Rental Clerk Relationship Specialty Start Date End Date Donta Mike MD [address] [place] [address] PCP - General Internal Medicine 08/30/24 documented as of this encounter
--- OUTSIDE RECORDS SUMMARY | 2025-01-10 07:15 | XMS_ITS | Clinical Summary ---
Author Organization [facility] Address [address] [place] [address] Phone Care Team Providers Care Beater Engineer Helper Name Role Phone Flores Donta Avalos Primary Care Provide r Allergies No known active allergies Medications ammonium lactate (AMLACTIN) 12 % cream Apply topically if needed for dry skin. 560 g 2 5 12/09/19 26 Active Encounters Date Type Department Care Team Description 12/08/2024 9:45 AM EDT Office Visit Orthopedic [facility] [address] [phone] Stanley Mayen DPM Controlled type 2 diabetes [...] Upcoming Encounters Date Type Department Care Team ([facility] Contact Info) Description 02/13/2025 9:30 AM EDT Office Visit Orthopedic Surgery [facility] [address] [phone] Stanley Mayen DPM [address] [place] [phone] Health Maintenance Due Date Last Done Comments Diabetes: Annual Foot Exam 10/25/1971 Diabetes: Annual Retina Eye Exam 10/25/1971 Pneumococcal Vaccine: 50+ Years (2 of 2 - PCV) 05/14/2007 05/14/2006 Zoster Vaccines (1 of 2) 10/25/2011 DTaP,Tdap,and Td Vaccines (2 - Td or Tdap) 02/07/2019 02/07/2009 RSV Immunization Adult Patients (1 - Risk 60-74 years 1-dose series) 2021 Depression Screening 05/11/2024 Colorectal Cancer Screening: Colonoscopy 09/28/2024 Diabetes: Annual Urine Albumin-Creatinine Ratio (uACR) 09/28/2024 Lung Cancer Screening (Low Dose CT) 09/28/2024 Medicare Annual Wellness Visit 09/28/2024 Social Influencers of Health Screening 09/28/2024 COVID-19 Vaccine (1 - 2023-2 5 season) 2025 Influenza Vaccine (#1) 2025 9, 05/14/2006 Diabetes: [...] ID:[id number] Group ID:[id number] Type:Not on file Address: [facility] [place] [address] Care Teams Beater Engineer Helper Relationship Specialty Start Date End Date Donta Mike [address] [place], [place] PCP - General Internal Medicine 09/28/24
--- OUTSIDE RECORDS SUMMARY | 2025-01-10 07:15 | XMS_ITS | Encounter Summary ---
Author Organization [employer] Address [address] [facility] [address] [place] [address] Care Team Providers Care Center Human Resources Manager Name Role Phone Donta Mike MD Primary Care Prov ider Reason for Visit * Reason Onset Date Comments Durable Medical Equipment 10/11/2024 Encounter Details Date Type Department Care Team (Late st Contact Info) Description 10/11/2024 Telephone [facility] [address] [place], [place] [phone] Donta Mike MD [address] [place] [address] Durable Medical Equipment Social History Tobacco Use Types Packs/Day Years [...] Telephone Encounter - Courtney Salazar LPN - 10/12/2024 1:36 PM EDT Please review message below and advise for Cane, please provide DX BP machine queued for [facility] pharmacy TC from pt requesting DME order for a cane , blood pressure kit to be sent too [facility]. Contact pt at [phone] * Telephone Encounter - Anny Erwin - 10/11/2024 8:33 AM EDT TC from pt requesting DME order for a cane , blood pressure kit to be sent too [facility]. Contact pt at [phone] documented in this encounter Plan of Treatment Upcoming Encounters Date Type Department Care Team (Late st Contact Info) Description 01/24/2025 9:00 AM EDT Telemedicine [facility] [address] [place], [place] [phone] Donta Mike MD [address], [place] [phone] documented as of this encounter Visit Diagnoses Not on filedocumented in this encounter Additional Health Concerns Assessment Noted Time PHQ-9 Depression Total Score: 17 09/26/ 025 3:19 PM EDT documented as of this encounter Care Teams Center Human Resources Manager Relationship Specialty Start Date End Date Donta Mike MD [address] [place] [id number] PCP - General Internal Medicine 08/30/24 documented as of this encounter
--- OUTSIDE RECORDS SUMMARY | 2025-01-10 07:15 | XMS_ITS | Encounter Summary ---
Author Organization [employer] Address [address] [facility] [address] [place] [address] Care Team Providers Care Art Objects Salesperson Name Role Phone Donta Mike MD Primary Care Prov ider Reason for Visit * Reason Onset Date Comments Referral 12/20/2024 Encounter Details Date Type Department Care Team (Late st Contact Info) Description 12/20/2024 Telephone [facility] [address] [place] [address] Donta Mike MD [address] [place], [place] [phone] Referral Social History Tobacco Use Types Packs/Day Years [...] encounter Miscellaneous Notes * Telephone Encounter - Theo Frias - 12/22/2024 10:44 AM EDT Pt called in regarding Cardiac referral needing. Referral DX : Ascending aortic aneurysm * Telephone Encounter - Jazmine Turner - 12/20/2024 2:21 PM EDT Tc from pt requesting to re send referral for cardiology to - [facility] [address] [address] documented in this encounter Plan of Treatment Upcoming Encounters Date Type Department Care Team (Late st Contact Info) Description 01/24/2025 9:00 AM EDT Telemedicine [facility] [address] [place] [address] Donta Mike MD [address] [place] [address] documented as of this encounter Visit Diagnoses Not on filedocumented in this encounter Additional Health Concerns Assessment Noted Time PHQ-9 Depression Total Score: 17 025 3:19 PM EDT documented as of this encounter Care Teams Art Objects Salesperson Relationship Specialty Start Date End Date FloresDonta Bhagat MD [address] [place] [phone] PCP - General Internal Medicine 08/30/24 documented as of this encounter
--- OUTSIDE RECORDS SUMMARY | 2025-01-10 07:15 | XMS_ITS | Clinical Summary ---
Author Organization [employer] Address [address] [facility] [address] [place] [address] Care Team Providers Care Head Lineman Name Role Phone Donta Mike MD Primary Care Prov ider Allergies No known active allergies Medications * This document contains information received from the source organization and may not represent a complete record from that organization. FREESTYLE LITE test stripIndications: Type 2 diabetes mellitus without complication, 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 snf insulin use (CMS/HCC) Please check sugar 4 times a day at breakfast, lunch, dinner, and before bed. 100 each 09/21/19 25 026 Active lisinopril (Prinivil) 20 MG tabletIndications :Hypertension, unspecified type Take 1 tablet (20 mg) by mouth Once per day. 90 tablet 09/23/19 026 Active atorvastatin (Lipitor) 80 MG tabletIndications :Hyperlipidemia, unspecified hyperlipidemia type Take 1 tablet (80 mg) by mouth Once per day. 90 tablet 09/23/19 25 026 Active metoprolol tartrate (Lopressor) 25 MG tabletIndications :Atrial fibrillation, unspecified type (CMS/HCC) Take 1 tablet (25 mg) by mouth 2 times daily. 180 tablet 09/23/19 026 Active metFORMIN (Glucophage) 1000 MG tabletIndications :Type 2 diabetes mellitus without complication, 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 snf insulin use (CMS/HCC) Take 1 tablet (1,000 mg) by mouth with breakfast and with evening meal. 180 tablet 09/23/19 026 Active sertraline (Zoloft) 50 MG tablet Take 1 tablet (50 mg) by mouth Once per day. 90 tablet 3 09/23/19 25 Active ammonium lactate (Lac-Hydrin) 12 % lotion Apply topically if needed for dry skin. 396 g 3 09/23/19 Active aspirin 81 MG chewable tabletIndications :nursing home current use of anticoagulant Chew 1 tablet (81 mg) Once per day. 90 tablet 3 09/23/19 Active pantoprazole (Protonix) 40 MG EC tabletIndications :Gastroesophageal reflux disease, 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 esophagitis present Take 1 tablet (40 mg) by mouth before breakfast. Do not crush, chew, or split. 90 tablet 3 09/23/19 Active zolpidem CR (Ambien CR) 12.5 MG ER tablet TAKE 1 TABLET BY MOUTH IF NEEDED AT BEDTIME FOR SLEEP. DO NOT CRUSH, CHEW, OR SPLIT. 30 tablet 11/23/19 Active Blood Pressure kit 1 kit Once per day. 1 kit 11/23/19 Active SITagliptin (Januvia) 100 MG tablet Take 1 tablet (100 mg) by mouth Once per day. 90 tablet 11/23/19 Active Blood Glucose Monitoring Suppl (FreeStyle Lite) device Inject under the skin 2 times daily. Test daily before all meals/snacks and once before bedtime. 1 each 11/23/19 25 Active Alcohol Sheets (Alcoh-Wipe) sheet Test daily before all meals/snacks and once before bedtime. 1 each 11/23/19 25 Active FreeStyle lancets 1 each by Other route 2 times daily. 100 each 11/23/19 25 Active FREESTYLE LITE test strip Monitor glucose BID 100 each 11/23/19 25 Active ketoconazole (NIZOral) 2 % shampoo Apply topically 2 (two) times a week. 480 mL 1 11/25/19 Active empagliflozin (Jardiance) 25 MG Take 1 tablet (25 mg) by mouth Once per day. 30 tablet 12/27/19 25 Active empagliflozin (Jardiance) 10 MG Take 1 tablet (10 mg) by mouth Once per day. 30 tablet 11/23/19 025 Discontinued Active Problems Problem Noted Date Diagnosed Date Benign paroxysmal positional vertigo due to bilateral vestibular disorder 11/22/2024 Assessment & Plan (11/22/2024 11:56 AM EDT): Will refer to PT for vestibular rehab Epididymitis with no abscess 11/22/2024 Assessment & Plan (11/22/2024 11:59 AM EDT): Seen at er, since patient has been complaining of right testicle pain, will refer to urology Difficulty walking 11/22/2024 Assessment & Plan (11/22/2024 12:01 PM EDT): Will send DME for 1 point cane Mass of right side of neck 11/22/2024 Assessment & Plan (11/22/2024 12:22 PM EDT): Will order a neck ct scan and will refer to ENT Moderate anxiety 09/26/2024 Hypertension 09/23/2024 Assessment & Plan (11/22/2024 11:54 AM EDT): Controlled, continue low sodium diet and exercise as tolerated, keep bp log Assessment & Plan (09/23/2024 2:03 PM EDT): Told to keep bp log, target <130/80, continue low sodium diet and exercise as tolerated, follow up in office, medications were renewed Hyperlipidemia 09/23/2024 Assessment & Plan (11/22/2024 11:55 AM EDT): On statin therapy, no changes will be made, new labs ordered for guidance of therapy Assessment & Plan (09/23/2024 2:02 PM EDT): On atorvastatin 80mg, he has hx of CABG x3, will refer to cardiology for follow up Type 2 diabetes mellitus without complication Assessment & Plan (11/22/2024 11:55 AM EDT): Uncontrolled, will add jardiance and increase januvia to 100mg, follow up in 1 month Assessment & Plan (09/23/2024 2:04 PM EDT): On metformin and januvia, new labs will be ordered on next visit, keep glucose log, Gastroesophageal reflux disease 09/23/2024 Assessment & Plan (09/23/2024 2:04 PM EDT): On PPI, lifestyle modifications reinforced, will continue current treatment Moderate episode of recurrent major depressive d isorder 09/23/2024 Assessment & Plan (09/23/2024 2:06 PM EDT): No suicidal/homicidal ideas, will refer to Screening for lung cancer 09/23/2024 Assessment & Plan (09/23/2024 2:10 PM EDT): >30 pack year smoking hx, will refer for lung cancer screening Encounter for medical examination to establish c are 09/22/2024 Assessment & Plan (09/22/2024 11:19 AM EDT): Last pcp visit >1 year ER: 08/2024, testicular infection Hospitalization: 2021 CABG Pmhx: HTN, DM, cholesterol, CAD, insomnia, MDD Pshx: CABG x3 2021, left shoulder Rotator cuff 2016, low back 2004 All: - Meds: as above Screening colon cancer: due Screening lung cancer: due Resolved Problems Problem Noted Date Diagnosed Date Resolved Date Atrial fibrillation 09/23/2024 09/24/19 25 Encounters * This document contains information received from the source organization and may not represent a complete record from that organization. Date Type Department Care Team Description 12/30/2024 Telephone [facility] [address] [place] [address] Donta Mike MD RV APPT 12/26/2024 Travel 12/23/2024 Telephone [facility] [address] [place] [address] Donta Mike MD chart prep 12/22/2024 Travel 12/20/2024 Telephone [facility] [address] [place] [address] Donta Mike MD Referral 12/20/2024 Telephone [facility] [address] [place] [address] Donta Mike MD Referral 12/14/2024 Telephone [facility] [address] [place] [address] Donta Mike MD concerns 12/14/2024 Orders Only [facility] [address] [place] [address] Donta Mike MD Abdominal aortic aneurysm (AAA) without rupture, unspecified part ([facility]) (Primary Dx) 12/14/2024 Telephone [facility] [address] [place] [address] Donta Mike MD INCIDENTAL FINDING 12/06/2024 Telephone [facility] [address] [place] [address] Donta Mike MD Results 11/22/2024 8:45 AM EDT Office Visit [facility] [address] [place] [address] Donta Mike MD Primary hypertension (Primary Dx); Type 2 diabetes mellitus without complication, 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 predatory animal exterminator insulin use ([facility]); Mixed hyperlipidemia; Benign paroxysmal positional vertigo due to bilateral vestibular disorder; Epididymitis with no abscess; Difficulty walking; Seborrheic dermatitis; Mass of right side of neck 11/22/2024 Refill [facility] [address] [place] [address] Donta Mike MD 11/22/2024 Travel 11/22/2024 Orders Only [facility] [address] [place] [address] Donta Mike MD 11/20/2024 Refill [facility] [address] [place] [address] Donta Mike MD 2024 Telephone [facility] [address] [place] [address] Donta Mike MD Referral 10/18/2024 Refill [facility] [address] [place] [address] Donta Mike MD 10/11/2024 Telephone [facility] [address] [place] [address] Donta Mike MD request 10/11/2024 Telephone [facility] [address] [place] [address] Donta Mike MD Durable Medical Equipment from Last 3 Months Family History Medical History Relation Name Comments Diabetes Father Prostate cancer Father Coronary artery disease Mother Diabetes Mother Hypertension Mother Relation Name Status Comments Father Mother Social History Tobacco Use Types Packs/Day Years Used Date Smoking Tobacco: Every Day Cigarettes 0.5 43.7 Started: 1981 Smokeless Tobacco: Never Tobacco Cessation:Ready to Q uit: Not Asked; Counseling Given: Not Answered Alcohol Use Standard Drinks/Week Comments Never 0 [...] Orientation Straight 08/30/2024 10 :27 AM EDT Last Filed Vital Signs Vital Sign Reading Time Taken Comments Blood Pressure 140/79 11/22/2024 8:46 AM EDT Pulse 60 11/22/2024 8:46 AM EDT Temperature 36.1 C (97 F) 11/22/2024 8:46 AM EDT Respiratory Rate 18 11/22/2024 8:46 AM EDT Oxygen Saturation 99% 11/22/2024 8:46 AM EDT Inhaled Oxygen Concentration - - Weight 90.7 kg (200 lb) 11/22/2024 8:46 AM EDT Height 186.7 cm (6' 1.5 ) 11/22/2024 8:46 AM EDT Body Mass Index 26.03 11/22/2024 8:46 AM EDT Plan of Treatment Upcoming Encounters Date Type Department Care Team ([facility] st Contact Info) Description 01/24/2025 9:00 AM EDT Telemedicine [facility] [address] [place] [address] Donta Mike MD [address] [place] [address] Health Maintenance Due Date Last Done Comments CT Colonography 1960 Colonoscopy 1961 Colorectal Cancer Screening 1960 FIT DNA/Cologuard 1961 FIT 1960 FOBT 1960 Sigmoidoscopy 1960 Disability Screening 1961 Diabetes: Foot Exam 10/25/1971 Eye Exam 10/25/1971 Pneumococcal Vaccine: 50+ Years (2 of 2 - PCV) 05/14/2007 05/14/2006 DTaP/Tdap/Td Vaccines (1 - Tdap) 02/08/2009 02/07/2009 Zoster Vaccines (1 of 2) 10/25/2011 COVID-19 Vaccine (1 - 2023-2 5 season) 2025 Influenza Vaccine (#1) 2025 9, 05/14/2006 Diabetes: Hemoglobin A1C 02/22/2025 11/22/2024 Depression Monitoring 03/29/2025 09/26/2024 , 09/26/2024 Alcohol/Substance Use Screening 09/22/2025 09/22/2024 SDOH Screening 09/22/2025 09/22/2024 Tobacco Screening 11/22/2025 11/22/2024 Diabetes: Urine Protein Screening 11/28/2025 11/28/2024 Lipid Panel 11/28/2025 11/28/2024 Lung Cancer Screening 12/09/2025 12/09/2024 RSV Patients and Patients Aged 60 years or older (1 - 1-dose 75+ series) 2036 HIV Screening Completed 11/28/2024 Hepatitis C Screening [...] patient's age to complete this topic Meningococcal Vaccine Aged Out No suhas clarissa eligible based on patient's age to complete this topic RSV under 20 months Aged Out No longe r eligible based on patient's age to complete this topic Rotavirus Vaccines Aged Out No longer eligible based on patient's age to complete this topic Procedures Procedure Name Priority Date/Time Associated Diagnosis Comments CT SOFT TISSUE NECK W CONTRAST Routine 12/20/2024 7:56 AM EDT Mass of right side of neck LDCT LUNG SCREENING Routine 12/09/2024 9 :21 AM EDT TSH W/REFLEX TO FT4 Routine 11/28/2024 8 :45 AM EDT Type 2 diabetes mellitus without complication, 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 snf insulin use (CMS/HCC) LIPID PANEL, STANDARD Routine 11/28/2024 8:45 AM EDT Type 2 diabetes mellitus without complication, 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 predatory animal exterminator insulin use (CMS/HCC) ALBUMIN, RANDOM URINE W/CREATININE Routine 11/28/2024 8:40 AM EDT Type 2 diabetes mellitus without complication, 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 snf insulin use (CMS/HCC) CBC WITH AUTO DIFFERENTIAL Routine 11/28/2024 8:25 AM EDT IRON AND TOTAL IRON BINDING CAPACITY Routine 11/28/2024 8:25 AM EDT BASIC METABOLIC PANEL Routine 11/28/2024 8:25 AM EDT HEPATITIS C AB W/REFL TO HCV RNA, QN, PCR Routine 11/28/2024 8:25 AM EDT Type 2 diabetes mellitus without complication, 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 predatory animal exterminator insulin use (CMS/HCC) HIV 1/2 ANTIGEN/ANTIBODY, FOURTH GENERATION W/RFL Routine 11/28/2024 8:25 AM EDT Type 2 diabetes mellitus without complication, 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 predatory animal exterminator insulin use (CMS/HCC) POCT GLYCATED HEMOGLOBIN, TOTAL Routine 11/22/2024 8:50 AM EDT Type 2 diabetes mellitus without complication, 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 predatory animal exterminator insulin use (CMS/HCC) POCT GLUCOSE Routine 11/22/2024 8:49 AM EDT Type 2 diabetes mellitus without complication, 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 predatory animal exterminator insulin use (CMS/HCC) from Last 3 Months Results * CT Soft Tissue Neck w/ Contrast (12/20/2024 7:56 AM EDT) Anatomical Region Laterality Modality Head, Neck Computed Tomogra phy 12/20/2024 7:56 AM EDT Narrative 12/20/2024 8:47 AM EDT [address] [address] [address] Scan Report Signed with Addenda Patient: Javed Kirkpatrick MR#: [id number] : 1960 Acct:[id number] Age/Sex: 64 / M ADM Date: 12/20/24 Loc: HO.CT Attending Dr: Donta Avalos MD Ordering Physician: Donta Mike MD Date of Service: 12/20/24 Procedure(s): CT soft tissue neck w IV con Accession Number(s): [id number] cc: Donta Mike MD Report Number: [id number]: Total DLP = 316.00 mGy-cm ADDENDUM ADDENDUM #1 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 Electronically signed by: Javed Miller MD 12/20/2024 11:12 AM EDT Addendum Dictated By: Javed Trinidad MD Addendum Signed By: <Electronically signed by Javed Trinidad MD in [place]> 12/20/24 1112 Addendum Cosigned By: DD/ /04/756 TD/TT: 12/20/2405/04/816 EXAMINATION: CT SOFT TISSUE NECK WITH CONTRAST CLINICAL INFORMATION: Neck mass, right-sided. COMPARISON: Correlated to CT lung screening dated December 28, 2020 demonstrated an enlarged thyroid gland. TECHNIQUE: Following the intravenous administration of 65 mL of Omnipaque 350 intravenous contrast, helical imaging was performed in the axial plane with generation of coronal and sagittal reformatted images. This CT examination was performed using dose optimization techniques as appropriate, variously including the following: *Automated exposure control *Adjustment of mA and/or kV according to patient size (this includes techniques or standardized protocols for targeted exams where dose is matched to indication/reason for exam; i.e. extremities or head) *Use of iterative reconstruction technique DLP: 316 mGy centimeter. FINDINGS: There is a skin BB marker placed at the right parotid compartment region. There is no gross soft tissue mass or fluid collections at the region of the BB marker. Skull base, nasopharynx, retropharynx, oropharynx, and hypopharynx demonstrated no gross masses or fluid collections. There is irregularity soft tissue fullness in the right arytenoid epiglottic fold. The glottis is normal. There is a 12 x 5 x 17 mm lobulated low density in the infrahyoid left midline of the thyrohyoid ligament Soft tissue fullness and punctate calcifications in the palatine tonsils, right greater than left side. Painter Apprentice spaces, parapharyngeal spaces demonstrated no gross masses. The salivary glands demonstrated no gross calcifications or masses. The vessels are patent. There are mixed plaques in the carotid bulbs and proximal ICAs pronounced on the left ICA resulting in 60% stenosis of the lumen. No gross masses in the oral cavity or the sublingual compartment. The thyroid gland is heterogeneously enlarged. The right thyroid lobe measures 4 x 3 x 8 cm with heterogeneous low-density nodules. The left thyroid lobe measures 5 x 4 x 9 cm with heterogeneous mixed nodular lesions most dominant measures 4.5 cm extending into the substernal middle mediastinum causing Right lateral deviation of the trachea. Calcified plaques in the thoracic aortic arch and its main branches. There is an aberrant right subclavian artery with a retroesophageal trajectory. The ascending thoracic aorta diameter is 5 cm. Calcified plaques in the cavernous supracavernous segments both ICAs. The left vertebral artery is dominant. Multilevel cervical spondylosis with a reverse curvature apex at C3-4. Polypoid mucosal thickening, ethmoid cells. Tympanic cavities and mastoid air cells are aerated. There is a 30 x 22 x 39 mm heterogeneous soft tissue lesion at the posterior aspect of the suprahyoid, right carotid space. There is no gross displacement or mass effect upon the adjacent carotid arteries. There is extrinsic compression and displacement of the right internal jugular vein. CT/CT soft tissue neck w IV con IMPRESSION: Concerning soft tissue mass lesion in the right aryteno-epiglottic fold and a large 39 mm tumor infiltration/lymphadenopathy level 2, right neck. Recommend direct inspection. Multinodular goiter with a dominant 4.5 cm nodule, left thyroid lobe. 5 cm aneurysm, ascending thoracic aorta. Aberrant right subclavian artery. Tonsillith, bilateral palatine tonsils. Mixed plaques both carotid bulbs and ICAs. Electronically signed by: Javed Miller MD 12/20/2024 08:44 AM EDT RP Dictated By: Javed Jurado MD Signed By: <Electronically signed by Javed Trinidad MD in OV> 12/20/24 08 DD/ 5 TD/TT: 12/20/24815 Operations Intern: Procedure Note Donotuseinterpreter, Image - 12/20/[address] [place] [address] [address] Scan Report Signed with Addenda Patient: Javed Kirkpatrick MR#: [id number] : 1960cct:[id number] Age/Sex: 64 / MADM Date: 12/20/24 Loc: HO.CT Attending Dr: Donta Avalos MD Ordering Physician: Donta Mike MD Date of Service: 12/20/24 Procedure(s): CT soft tissue neck w IV con Accession Number(s): [id number] cc: Donta Mike MD Report Number: [id number]: Total DLP = 316.00 mGy-cm ADDENDUM ADDENDUM #1 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 Electronically signed by: Javed Miller MD 12/20/2024 11:12 AM EDT RP Addendum Dictated By: Javed Trinidad MD Addendum Signed By: <Electronically signed by Leland Trinidad MD in OV> 12/20/24 111 Addendum Cosigned By: DD/ /04/756 TD/TT: 12/20/2405/04/816 EXAMINATION: CT SOFT TISSUE NECK WITH CONTRAST CLINICAL INFORMATION: Neck mass, right-sided. COMPARISON: Correlated to CT lung screening dated December 28, 2020 demonstrated an enlarged thyroid gland. TECHNIQUE: Following the intravenous administration of 65 mL of Omnipaque 350 intravenous contrast, helical imaging was performed in the axial plane with generation of coronal and sagittal reformatted images. This CT examination was performed using dose optimization techniques as appropriate, variously including the following: *Automated exposure control *Adjustment of mA and/or kV according to patient size (this includes techniques or standardized protocols for targeted exams where dose is matched to indication/reason for exam; i.e. extremities or head) *Use of iterative reconstruction technique DLP: 316 mGy centimeter. FINDINGS: There is a skin BB marker placed at the right parotid compartment region. There is no gross soft tissue mass or fluid collections at the region of the BB marker. Skull base, nasopharynx, retropharynx, oropharynx, and hypopharynx demonstrated no gross masses or fluid collections. There is irregularity soft tissue fullness in the right arytenoid epiglottic fold. The glottis is normal. There is a 12 x 5 x 17 mm lobulated low density in the infrahyoid left midline of the thyrohyoid ligament Soft tissue fullness and punctate calcifications in the palatine tonsils, right greater than left side. Painter Apprentice spaces, parapharyngeal spaces demonstrated no gross masses. The salivary glands demonstrated no gross calcifications or masses. The vessels are patent. There are mixed plaques in the carotid bulbs and proximal ICAs pronounced on the left ICA resulting in 60% stenosis of the lumen. No gross masses in the oral cavity or the sublingual compartment. The thyroid gland is heterogeneously enlarged. The right thyroid lobe measures 4 x 3 x 8 cm with heterogeneous low-density nodules. The left thyroid lobe measures 5 x 4 x 9 cm with heterogeneous mixed nodular lesions most dominant measures 4.5 cm extending into the substernal middle mediastinum causing Right lateral deviation of the trachea. Calcified plaques in the thoracic aortic arch and its main branches. There is an aberrant right subclavian artery with a retroesophageal trajectory. The ascending thoracic aorta diameter is 5 cm. Calcified plaques in the cavernous supracavernous segments both ICAs. The left vertebral artery is dominant. Multilevel cervical spondylosis with a reverse curvature apex at C3-4. Polypoid mucosal thickening, ethmoid cells. Tympanic cavities and mastoid air cells are aerated. There is a 30 x 22 x 39 mm heterogeneous soft tissue lesion at the posterior aspect of the suprahyoid, right carotid space. There is no gross displacement or mass effect upon the adjacent carotid arteries. There is extrinsic compression and displacement of the right internal jugular vein. CT/CT soft tissue neck w IV con IMPRESSION: Concerning soft tissue mass lesion in the right aryteno-epiglottic fold and a large 39 mm tumor infiltration/lymphadenopathy level 2, right neck. Recommend direct inspection. Multinodular goiter with a dominant 4.5 cm nodule, left thyroid lobe. 5 cm aneurysm, ascending thoracic aorta. Aberrant right subclavian artery. Tonsillith, bilateral palatine tonsils. Mixed plaques both carotid bulbs and ICAs. Electronically signed by: Javed Miller MD 12/20/2024 08:44 AM EDT Dictated By: Javed Jurado MD Signed By: <Electronically signed by Javed Trinidad MDin OV> 12/20/24 0844 DD/ 0756 TD/TT: 12/20/24 0816 Operations Intern: Donta Avalos MD IMG CT PROCEDURES Edited Result - Final * CT Lung Screening Low dose (12/09/2024 9:21 AM EDT) Anatomical Region Laterality Modality Lung Computed Tomogra phy 12/09/2024 9:21 AM EDT Narrative 12/09/2024 10:02 AM EDT [place] [address] [address] Scan Report Signed Patient: Javed Kirkpatrick MR#: [id number] : 1960 Acct:[id number] Age/Sex: 64 / M ADM Date: 12/09/24 Loc: HO.CT Attending Dr: Nicole Whittington PA-C Ordering Physician: Nicole Whittington PA-C Date of Service: 12/09/24 Procedure(s): CT lung screening Accession Number(s): [id number] cc: Donta Mike MD; Nicole Whittington PA-C Report Number: [id number]: Total DLP = 58.00 mGy-cm EXAMINATION: CT LOW-DOSE SCREENING CHEST WITHOUT CONTRAST CLINICAL INFORMATION: 64-year-old male, current smoker, 37 pack years. Lung cancer screening. COMPARISON: None available. TECHNIQUE: Multidetector volumetric CT imaging of the chest is performed on a Siemens SOMATOM Definition scanner without contrast using low dose technique. Additional 2D coronal and sagittal reformatted images and axial 3D maximum intensity projection (MIP) images are generated on the CT workstation. This CT examination was performed using dose optimization techniques as appropriate, variously including the following: *Automated exposure control *Adjustment of mA and/or kV according to patient size (this includes techniques or standardized protocols for targeted exams where dose is matched to indication/reason for exam; i.e. extremities or head) *Use of iterative reconstruction technique FINDINGS: PULMONARY NODULES: 2 mm nodule right upper lobe centrally (series 5, image 42). 3 mm minor fissural nodule (series 5, image 86), consistent with intrapulmonary lymph node. 2 mm nodule right middle lobe (series 5, image 107). 4 mm pleural-based nodule right middle lobe (series 5, image 113). 3 mm nodule left upper lobe superior lingular (series 5, image 97). 2 mm nodule left lower lobe posteriorly (series 5, image 128). LUNGS: Lungs are well expanded and clear bilaterally. No abnormal opacities or consolidations. No effusion or pneumothorax. Small airways normal. Central airways normal. No interstitial findings. MEDIASTINUM: Diffuse enlargement of the thyroid left greater than right, consistent with goiter. This extends substernally. Prior median sternotomy and CABG. Ascending aortic aneurysmal dilatation measuring up to 4.6 cm. Remainder of the aorta is normal in caliber. Heart size normal. No pericardial effusion. No esophageal abnormality. No adenopathy or mass. CORONARY ARTERY CALCIFICATION: Heavy coronary calcifications. CHEST WALL/AXILLA: Unremarkable. UPPER ABDOMEN: Included portions of the solid organs in the upper abdomen unremarkable on noncontrast imaging. OSSEOUS STRUCTURES: No suspicious lytic or blastic bone lesions. Mild to moderate degenerative changes of the central and inferior thoracic spine. CT/CT lung screening IMPRESSION: 1. There are a few scattered pulmonary nodules measuring up to 4 mm. 2. The lungs are clear bilaterally. 3. Substernal goiter. 4. Ascending aortic aneurysmal dilatation measuring up to 4.6 cm. 5. Heavy coronary calcifications. Sternotomy and CABG. ASSESSMENT: 1. Lung-RADS Category 2: Benign appearance or behavior of nodules. 2. Lung-RADS Category S: None. RECOMMENDATION: Continued routine annual low-dose CT lung screening in 1 year is recommended. An order for CT CHEST LOW DOSE CANCER SCREENING ([id number]) can be placed. Electronically signed by: Robb Veronica MD 12/09/2024 09:59 AM EDT Dictated By: Robb Veronica MD Signed By: <Electronically signed by Robb Veronica MD in OV> 12/09/24 0959 DD/ 0 TD/TT: 12/09/2437 Operations Intern: Procedure Note Donotuseinterpreter, Image - 12/09/[address] [place] [address] [address] Scan Report Signed Patient: Javed Kirkpatrick MR#: [id number] : [id number]:[id number] Age/Sex: 64 / MADM Date: 12/09/24 Loc: HO.CT Attending Dr: Nicole Whittington PA-C Ordering Physician: Nicole Whittington PA-C Date of Service: 12/09/24 Procedure(s): CT lung screening Accession Number(s): [id number] cc: Donta Mike MD; Nicole Whittington PA-C Report Number: [id number]: Total DLP = 58.00 mGy-cm EXAMINATION: CT LOW-DOSE SCREENING CHEST WITHOUT CONTRAST CLINICAL INFORMATION: 64-year-old male, current smoker, 37 pack years. Lung cancer screening. COMPARISON: None available. TECHNIQUE: Multidetector volumetric CT imaging of the chest is performed on a Siemens SOMATOM Definition scanner without contrast using low dose technique. Additional 2D coronal and sagittal reformatted images and axial 3D maximum intensity projection (MIP) images are generated on the CT workstation. This CT examination was performed using dose optimization techniques as appropriate, variously including the following: *Automated exposure control *Adjustment of mA and/or kV according to patient size (this includes techniques or standardized protocols for targeted exams where dose is matched to indication/reason for exam; i.e. extremities or head) *Use of iterative reconstruction technique FINDINGS: PULMONARY NODULES: 2 mm nodule right upper lobe centrally (series 5, image 42). 3 mm minor fissural nodule (series 5, image 86), consistent with intrapulmonary lymph node. 2 mm nodule right middle lobe (series 5, image 107). 4 mm pleural-based nodule right middle lobe (series 5, image 113). 3 mm nodule left upper lobe superior lingular (series 5, image 97). 2 mm nodule left lower lobe posteriorly (series 5, image 128). LUNGS: Lungs are well expanded and clear bilaterally. No abnormal opacities or consolidations. No effusion or pneumothorax. Small airways normal. Central airways normal. No interstitial findings. MEDIASTINUM: Diffuse enlargement of the thyroid left greater than right, consistent with goiter. This extends substernally. Prior median sternotomy and CABG. Ascending aortic aneurysmal dilatation measuring up to 4.6 cm. Remainder of the aorta is normal in caliber. Heart size normal. No pericardial effusion. No esophageal abnormality. No adenopathy or mass. CORONARY ARTERY CALCIFICATION: Heavy coronary calcifications. CHEST WALL/AXILLA: Unremarkable. UPPER ABDOMEN: Included portions of the solid organs in the upper abdomen unremarkable on noncontrast imaging. OSSEOUS STRUCTURES: No suspicious lytic or blastic bone lesions. Mild to moderate degenerative changes of the central and inferior thoracic spine. CT/CT lung screening IMPRESSION: 1. There are a few scattered pulmonary nodules measuring up to 4 mm. 2. The lungs are clear bilaterally. 3. Substernal goiter. 4. Ascending aortic aneurysmal dilatation measuring up to 4.6 cm. 5. Heavy coronary calcifications. Sternotomy and CABG. ASSESSMENT: 1. Lung-RADS Category 2: Benign appearance or behavior of nodules. 2. Lung-RADS Category S: None. RECOMMENDATION: Continued routine annual low-dose CT lung screening in 1 year is recommended. An order for CT CHEST LOW DOSE CANCER SCREENING ([id number]) can be placed. Electronically signed by: Robb Veronica MD 12/09/2024 09:59 AM EDT Dictated By: Robb Veronica MD Signed By: <Electronically signed by Robb Veronica MD in OV> 12/09/24 0959 DD/ 0 TD/TT: 12/09/24 0937 Operations Intern: us [facility] External Provider IMG CT PROCEDURES Final Result * TSH W/Reflex to FT4 (11/28/2024 8:45 AM EDT) TSH reflex Free T4 0.66 0.32 - 4.0 uIU/mL [facility] Blood Venous blood specimen / Unknown 11/28/2024 8:45 AM EDT 11/28/2024 2:03 PM EDT Donta Avalos MD LAB BLOOD ORDERABL ES Final Result [facility] [address] [place] [phone] * Lipid Panel, Standard (11/28/2024 8:45 AM EDT) Triglycerides 56 <150 mg/dL [facility] Comment:Desirable Triglyceri de: less than 150 mg/dLBorderline High Triglyceride 150-199 mg/dLHigh Triglyceride: 200-499 mg/dLVery High Triglyceride: greater than or equal to 5OO mg/dL Cholesterol 163 <200 mg/dL [facility] Comment:Desirable Cholestero l: less than 200 mg/dLBorderline High Cholesterol: 200-239 mg/dLHigh Cholesterol: greater than 239 mg/dL LDL Cholesterol Calculated 99 <100 mg/dL [facility] Comment:Desirable LDL: less than 100 mg/dLNear Optimal/Above Optimal LDL: 110- 129 mg/dLBorderline High LDL: 130-159 mg/dLHigh LDL: 160-189 mg/dLVery High LDL: greater than or equal to 190 mg/dL HDL Cholesterol 53 >40 mg/dL [facility] Comment:Desirable HDL: great er than 40 mg/dL Note: This HDL assay may give artificially low results in patients with liver disease. Blood Venous blood specimen / Unknown 11/28/2024 8:45 AM EDT 11/28/2024 2:03 PM EDT Donta Avalos MD LAB BLOOD ORDERABL ES Final Result Performing Organization Address [facility] Co de Phone Number [facility] [address] [place] [phone] * (ABNORMAL) Albumin, Random Urine W/Creatinine (11/28/2024 8:40 AM EDT) Creatinine, Urine 37.40 mg/dL [facility] Microalbumin Urine 32.0 mg/L [facility] Microalbum Creatinine Ratio Ur 85.5(H) <30 ug/mg cr [facility] Comment:Albumin/Creatinine R atio Reference Ranges: Normal: < 30 ug/mg creatinine Microalbuminuria: 30 - 300 ug/mg creatinineClinical Albuminuria: > 300 ug/mg creatinine Urine (Urine, Random) 11/28/2024 8:40 AM EDT 11/28/2024 2:10 PM EDT Donta Avalos MD LAB URINE ORDERABL ES Final Result Performing Organization Address [facility] Co de Phone Number [facility] [address] [place] [phone] * (ABNORMAL) CBC auto differential (11/28/2024 8:25 AM EDT) Pathologist [facility] White Blood Count 6.2 4.8 - 10.8 X10*3/uL [facility] Red Blood Count 4.51(L) 4.60 - 5.80 X10*6/uL [facility] Hemoglobin 13.1(L) 14.0 - 18.0 g/dl [facility] Hematocrit 39.8(L) 42.0 - 52.0 % [facility] Mean Corpuscular Volume 88.2 80.0 - 98.0 fL [facility] Mean Corpuscular Hemoglobin 29.0 27.0 - 33.0 pg [facility] Mean Corpuscular HGB Conc 32.9 31.0 - 36.0 g/dl [facility] Red Cell Distribution Width 15.2 11.0 - 16.0 % [facility] Platelet Count 214 160 - 400 X10*3/uL [facility] Mean Platelet Volume 12.1 9.4 - 12.4 fL [facility] Neutrophils Percent Auto 41.1(L) 45 - 73 % [facility] Imm Gran Pct Auto 0.3 0.0 - 0.4 % [facility] Lymphocytes Percent Auto 47.0(H) 20 - 40 % [facility] Monocytes Percent Auto 9.2 2 - 11 % [facility] Eosinophils Percent Auto 1.9 0 - 4 % [facility] Basophils Percent Auto 0.5 0 - 2 % [facility] NRBC Pct Auto 0.0 0.0 - 0.2 /100WBC [facility] Neutrophils Absolute Auto 2.6 2.0 - 8.3 x10*3/uL [facility] Imm Gran Abs Auto 0.02 0.00 - 0.03 X10*3/uL [facility] Lymphocytes Absolute Auto 2.9 1.2 - 4.9 X10*3/uL [facility] Monocytes Absolute Auto 0.6 0.1 - 1.2 X10*3/uL [facility] Eosinophils Absolute Auto 0.1 0.0 - 0.4 X10*3/uL [facility] Basophils Absolute Auto 0.0 0.0 - 0.2 X10*3/uL [facility] NRBC Abs Auto 0.000 0.0 - 0.012 X10*3/uL [facility] 11/28/2024 8:25 AM EDT 11/28/2024 2:03 PM EDT us Generic External Data Provider LAB BLOOD ORDERAB LES Final Result [facility] [address] [place] [phone] * Hepatitis C Antibody with Reflex to HCV, RNA, Quantitative, Real-Time PCR (11/28/2024 8:25 AM EDT) Pathologist [facility] Hepatitis C Antibody Nonreactive Nonreactive [facility] Comment:Antibodies to HCV no t detected; does not exclude early acuteHCV infection. Blood Venous blood specimen / Unknown 11/28/2024 8:25 AM EDT 11/28/2024 2:03 PM EDT Donta Avalos MD LAB BLOOD ORDERABL ES Final Result Performing Organization Address [facility] Co de Phone Number [facility] [address] [place] [phone] * Iron And Total Iron Binding Capacity (11/28/2024 8:25 AM EDT) Pathologist [facility] Iron 123 45 - 160 mcg/dL [facility] Total Iron Binding Capacity 256 228 - 428 mcg/dL [facility] Percent Iron Saturation 48 15 - 50 % [facility] Unsaturated Iron Binding 133 ug/dL [facility] 11/28/2024 8:25 AM EDT 11/28/2024 2:03 PM EDT us Generic External Data Provider LAB BLOOD ORDERAB LES Final Result Performing Organization Address [facility] de Phone Number [facility] [address] [place] [phone] * HIV-1/2 Antigen and Antibodies, Fourth Generation, with Reflexes (11/28/2024 8:25 AM EDT) Pathologist [facility] HIV AB/AG Nonreactive Nonreactive [facility] Comment:HIV-1 p24 Ag and/or HIV-1/HIV-2 Ab not detected.A test result that is nonreactive does not exclude thepossibility of exposure to or infection with HIV-1 and/orHIV-2. Nonreactive results in this assay for individualswith prior exposure to HIV-1 and/or HIV-2 may be due toantigen and antibody levels that are below the limit ofdetection of this assay.The [employer] HIV Ag/Ab Combo assay result andsupplemental assay results should be interpreted inconjunction with the patient's clinical presentation,history and other laboratory results. If the results areinconsistent with clinical evidence, additional testing issuggested to confirm the result. Blood Venous blood specimen / Unknown 11/28/2024 8:25 AM EDT 11/28/2024 2:03 PM EDT us Donta Avalos MD LAB BLOOD ORDERABL ES Final Result Performing Organization Address [facility]/ZIP Co de Phone Number [facility] [address] [place] [phone] * (ABNORMAL) Basic Metabolic Panel (11/28/2024 8:25 AM EDT) Sodium 138 135 - 145 mmol/L [facility] Potassium 3.9 3.3 - 5.1 mmol/L [facility] Chloride 106 96 - 108 mmol/L [facility] Carbon Dioxide 25 22 - 29 mmol/L [facility] Anion Gap 11(L) 12 - 20 [facility] Urea Nitrogen (BUN) 11 9 - 16 mg/dL [facility] Creatinine, Serum 0.76 0.5 - 1.4 mg/dL [facility] Estimated Glomerular Filt Rate >60 [facility] Comment:Chronic Kidney Disea se: Estimated GFR < 60 mL/min/[id number] Kidney Disease: Estimated GFR < 15 mL/min/1.73m2 Glucose 152(H) 60 - 115 mg/dL [facility] Calcium 9.2 8.4 - 10.2 mg/dL [facility] 11/28/2024 8:25 AM EDT 11/28/2024 2:03 PM EDT us Generic External Data Provider LAB BLOOD ORDERAB LES Final Result Performing Organization Address City/[facility]/ZIP Co de Phone Number [facility] [address] [place] [phone] * (ABNORMAL) POCT HGB A1C (11/22/2024 8:50 AM EDT) Hemoglobin A1C 8.0(A) 4.0 - 5.7 % QC Media Lot # [id number] Lot# Expiration Date 3,027 Blood 11/22/2024 8:50 AM EDT Donta Avalos MD POINT OF CARE TEST ENTER/EDIT ORDERABLES Final Result * POCT Glucose (11/22/2024 8:49 AM EDT) Pathologist [facility] Glucose Blood, POC 145 60 - 200 mg/dL QC [employer] Lot # [id number] Lot# Expiration Date ,275 Blood Capillary blood specimen / Unknown 11/22/2024 8:49 AM EDT Donta Avalos MD POINT OF CARE TEST ENTER/EDIT ORDERABLES Final Result from Last 3 Months Insurance [id number] ONE CARE < 65 [place] [id number] [facility] Care Teams Head Lineman Relationship Specialty Start Date End Date Donta Mike MD [address] [place] [phone] PCP - General Internal Medicine 08/30/24
--- OUTSIDE RECORDS SUMMARY | 2025-01-10 07:15 | XMS_ITS | Encounter Summary ---
Author Organization [employer] Address [address] [facility] [address] [place] [address] Care Team Providers Care Laboratory Manager Name Role Phone Donta Mike MD Primary Care Prov ider Reason for Visit * Reason Comments Med Change Request Encounter Details Date Type Department Care Team ([facility] st Contact Info) Description 11/22/2024 Refill C [facility] [address] [place], [place] [phone] Donta Mike MD [address] [place] [address] Social History Tobacco Use Types Packs/Day Years [...] Info) Description 01/24/2025 9:00 AM EDT Telemedicine [facility] [address] [place] [phone] Donta Mike MD [address] [place] [address] documented as of this encounter Visit Diagnoses Not on filedocumented in this encounter Additional Health Concerns Assessment Noted Time PHQ-9 Depression Total Score: 17 025 3:19 PM EDT documented as of this encounter Care Teams Laboratory Manager Relationship Specialty Start Date End Date Donta Mike MD [address] [place] [phone] PCP - General Internal Medicine 08/30/24 documented as of this encounter
--- OUTSIDE RECORDS SUMMARY | 2025-01-10 07:15 | XMS_ITS | Encounter Summary ---
Author Organization [employer] Address [address] [facility] [address] [place] [address] Care Team Providers Care Cyber Analyst Name Role Phone Donta Mike MD Primary Care Prov ider Reason for Visit * Reason Onset Date Comments Med Refill 09/20/2024 Encounter Details Date Type Department Care Team (Late st Contact Info) Description 09/20/2024 Telephone [facility] [address] [place] [address] Donta Mike MD [address] [place] [phone] Med Refill Social History Tobacco Use Types Packs/Day Years Used Date Smoking Tobacco: Never Assessed Depression Answer Date Recorded Patient Health Questionnaire-9 Score 12 09/22/2024 Patient Health Questionnaire-9 Score 12 09/22/2024 Last PHQ-9: Questionnaire Data Not on file 0 09/22/2024 Housing Stability Answer Date Recorded What is your housing situation today? I have mesfinkayla leung 09/22/[address] you [...] Answer Date Recorded Patient Health Questionnaire-2 Score 6 09/22/2024 Internet Access Answer Date Recorded Internet Access [...] of Assessment Author Patient Health Questionnaire-2 Score 6 09/08 10:39 AM Shantelle Trinh [place] * Little interest or pleasure in doing things Answer Date of Assessment Author Nearly every day 09/22/2024 10:39 AM Shantelle Trinh [place] * Feeling down, depressed, or hopeless Answer Date of Assessment Author Nearly every day 09/22/2024 10:39 AM Shantelle Trinh [place] * Trouble falling or staying asleep, or sleeping too much Answer Date of Assessment Author Nearly every day 09/22/2024 10:39 AM Shantelle Trinh [place] * Feeling tired or having little energy Answer Date of Assessment Author More than half the days 09/22/2024 10:39 AM Shantelle Trinh [place] * Poor appetite or overeating Answer Date of Assessment Author Not at all 09/22/2024 10:39 AM Dayne Trinh [place] * Feeling bad about yourself - or that you are a failure or have let yourself or your family down Answer Date of Assessment Author Not at all 09/22/2024 10:39 AM Dayne Trinh [place] * Trouble concentrating on things, such as reading the newspaper or watching television Answer Date of Assessment Author Not at all 09/22/2024 10:39 AM Dayne Trinh MA * Moving or speaking so slowly that other people could have noticed? Or the opposite - being so fidgety or restless that you have been moving around a lot more than usual. Answer Date of Assessment Author Not at all 09/22/2024 10:39 AM Dayne Trinh MA * Thoughts that you would be better off or hurting yourself in some way Answer Date of Assessment Author Several days 09/22/2024 10:39 AM Dayne Trinh MA * Patient Health Questionnaire-9 Score Answer Date of Assessment Author 12 09/22/2024 10:39 AM Dayne Trinh MA * How difficult have these problems made it for you to do your work, take care of things at home, or get along with other people? Answer Date of Assessment Author Very difficult 09/22/2024 10:39 AM Dayne Trinh MA documented as of this encounter Miscellaneous Notes * Telephone Encounter - Hoda Salcedo LPN - 09/20/2024 3:27 PM EDT [facility] doesn't require 90 day supply. Patient needs appointment has never been seen. * Telephone Encounter - Jazmine Turner - 09/20/2024 3:14 PM EDT Tc from pt stating that insurance does not cover for 30 days medication, it only cover for 90 days medication Medication needed; - lisinopril (Prinivil) 20 MG tablet - vatorvastatin (Lipitor) 80 MG tablet - metFORMIN (Glucophage) 500 MG tablet - metoprolol tartrate (Lopressor) 25 MG tablet - pantoprazole (Protonix) 40 MG EC tablet documented in this encounter Plan of Treatment Upcoming Encounters Date Type Department Care Team (Late st Contact Info) Description 01/24/2025 9:00 AM EDT Telemedicine [facility] [address] [place] [address] Donta Mike MD [address] [place] [address] documented as of this encounter Visit Diagnoses Not on filedocumented in this encounter Care Teams Cyber Analyst Relationship Specialty Start Date End Date Donta Mike MD [address] [place] [address] PCP - General Internal Medicine 08/30/24 documented as of this encounter
--- OUTSIDE RECORDS SUMMARY | 2025-01-10 07:15 | XMS_ITS ---
Author Name [facility] Organization Unknown History of Medication Use Medication Directions Dispensed Refills Start Date End Date Stat atorvastatin 80 mg oral tablet 1 tab, Oral, Daily, # 90 tab, 3 Refill(s), Pharmacy: [facility], 194, cm, 01/13/24 10:50:00 EDT, Height/Length Measured, 90.26, kg, 01/13/24 10:58:00 EDT, Weight Dosing 01/15/2024 Ordered atorvastatin 80 mg oral tablet 1 tab, Oral, Daily, # 90 tab, 0 Refill(s), Pharmacy: [facility] 12/24/2023 Ordered aspirin 81 mg oral capsule 1 cap, Oral, Daily, # 30 cap, 0 Refill(s), other reason (Rx) 12/16/2021 Ordered Metoprolol Tartrate 25 mg oral tablet See Instructions, TOME CASSY TABLETA POR LA BOCA DOS VECES AL EDVIN, # 60 tab, 0 Refill(s), Pharmacy: [facility] 12/14/2021 Ordered pantoprazole 40 mg oral delayed release tablet See Instructions, TOME 1 TABLETA POR LA BOCA DIARIA, # 90 tab, 0 Refill(s), Pharmacy: [facility], 194, cm, 12/16/21 8:56:00 EDT, Height/Length Measured, 91.17, kg, 12/16/21 8:56:00 EDT, Weight Dosing 12/12/2021 Ordered Metoprolol Tartrate 25 mg oral tablet See Instructions, TOME CASSY TABLETA POR LA BOCA DOS VECES AL EDVIN, # 60 tab, 0 Refill(s), Pharmacy: [facility] 09/18/2021 Ordered Linzess 72 mcg oral capsule 1 cap, Oral, Daily, do not crush or chew, # 90 cap, 3 Refill(s), Pharmacy: [facility], 194, cm, 01/22/24 7:53:00 EDT, Height/Length Measured, 92.8, kg, 01/22/24 7:53:00 EDT, Weight Dosing 07/04/2021 Ordered atorvastatin 80 mg oral tablet See Instructions, TOME 1 TABLETA POR LA BOCA DIARIA, # 90 tab, 3 Refill(s), [facility]acy: [facility], 194, cm, 12/16/21 8:56:00 EDT, Height/Length Measured, 91.17, kg, 12/16/21 8:56:00 EDT, Weight Dosing 04/07/2021 Ordered atorvastatin 80 mg oral tablet See Instructions, TOME 1 TABLETA POR LA BOCA DIARIA, # 90 tab, 3 Refill(s), Pharmacy: [facility], 194, cm, 12/16/21 8:56:00 EDT, Height/Length Measured, 91.17, kg, 12/16/21 8:56:00 EDT, Weight Dosing 04/07/2021 Ordered Problems Problem Status Onset Date Problem Type Date of Resoluti on Source Diarrhea (finding) active ProblemAct [facility] Helicobacter pullorum (organism) active ProblemAct [facility] Constipation (finding) active ProblemAct [facility] Esophageal reflux finding (finding) active ProblemAct [facility] Indigestion (finding) active ProblemAct [facility] History of - angina pectoris (context-dependent category) active ProblemAct [facility] Hyperlipidemia (disorder) active ProblemAct [facility] Pruritus ani (disorder) active ProblemAct [facility] Overweight (finding) active ProblemAct [facility] Hemorrhoids (disorder) active ProblemAct [facility] Abdominal pain (finding) active ProblemAct [facility] Dilutional thrombocytopenia (disorder) active ProblemAct [facility] Hemorrhage of rectum and anus (disorder) active ProblemAct [facility] Supraventricular tachycardia (disorder) active ProblemAct [facility] Diabetes mellitus (disorder) active ProblemAct [facility] Palpitations (finding) active ProblemAct [facility] Anorectal disorder (disorder) active ProblemAct [facility] Abdominal bloating (finding) active ProblemAct [facility] History of - coronary artery bypass grafting (context-dependent category) active ProblemAct [facility] Hypertensive disorder, systemic arterial (disorder) active ProblemAct [facility] Immunizations Vaccine Date Source Lot Number Status influenza vaccine (misc) 06/11/2017 [facility] UNK completed Encounters Encounter Type Encounter Reason Primary Diagnosis Location Date Ambulatory PAIN AFTER EATING, LOTS OF GAS, DUE FOR COL AND ENDO [facility] 01/22/2024 Ambulatory Palpitation [facility] 01/19/2024 Ambulatory Echo testing [facility] 2023 Ambulatory Triage - tachycardia pt of Dr. Sumner [facility] 01/13/2024 Ambulatory [facility] 01/07/20 Ambulatory [facility] 12/16/2021 Ambulatory [facility] 11/26/19 Ambulatory [facility] 10/25/19 Ambulatory [facility] 09/24/19 Ambulatory [facility] 08/30/2021 Care Team Organization Name Specialty Phone Email Start Date End Da te [facility] 05/09/2024 10/15/2024 [facility] 09/08/[address] [facility] 11/20/2022 [facility] 05/15/2022 [facility] 09/0801/06/2022 [facility] 08/30/2021
--- OUTSIDE RECORDS SUMMARY | 2025-01-10 07:16 | XMS_ITS | Encounter Summary ---
Author Organization [employer] Address [address] [facility] 7t [place] [address] Care Team Providers Care Center Rep Name Role Phone Donta Mike MD Primary Care Prov ider Reason for Visit * Reason Onset Date Comments Call Back Request 09/16/2024 Encounter Details Date Type Department Care Team (Late st Contact Info) Description 09/16/[address] [facility] MEDICINE [address] [place] [address] Donta Mike MD [address] [place], [place] [phone] Call Back Request Social History Tobacco Use Types Packs/Day Years Used Date Smoking Tobacco: Never Assessed Sex and Gender Information Value Date Recorded Sex Assigned at Male 08/23/2024 10:58 AM EDT Legal Sex Male 10:48 AM EDT Gender Identity Male 08/23/2024 10:58 AM EDT Sexual Orientation Straight 08/30/2024 10 :27 AM EDT documented as of this encounter Miscellaneous Notes * Telephone Encounter - Aarti Chin RN - 09/16/2024 1:31 PM EDT TC to patient via spanish instructor. Patient stated he has recently moved her from [place], [place] and ran out of his medication a few days ago. One of those medications was Metoprolol. Patient denies chest pain currently but does admit to chest pain last week, and again last night. Patient also has a history of open heart surgery. This is a new patient. NO notes or med list available. Patient stated he used [facility] in [place], [place]. RN will call pharmacy and do a med rec. Patient alsostated he was recently seen in [facility], so this RN will obtain ER notes. * Telephone Encounter - Radha Ventura - 09/16/2024 11:40 AM EDT Tc from pt reporting was scheduled for telephone visit with PCP and never received call from no one. Pt also inform he's been up since 8am waiting solutions market consultant. Please return call [phone] documented in this encounter Plan of Treatment Upcoming Encounters Date Type Department Care Team (Late st Contact Info) Description 01/24/2025 9:00 AM EDT Telemedicine [facility] MED & PEDS [address] [place] [address] Donta Mike MD [address] [place] [address] documented as of this encounter Visit Diagnoses Not on filedocumented in this encounter Care Teams Center Rep Relationship Specialty Start Date End Date Donta Mike MD [address] [place] [address] PCP - General Internal Medicine 08/30/24 documented as of this encounter
--- OUTSIDE RECORDS SUMMARY | 2025-01-10 07:16 | XMS_ITS | Encounter Summary ---
Author Organization [employer] Address [address] [facility] 7 [place] [address] Care Team Providers Care Music Professionals Name Role Phone Donta Mike MD Primary Care Prov ider Reason for Visit * Reason Onset Date Comments Nurse Triage 09/16/2024 Encounter Details Date Type Department Care Team (Late st Contact Info) Description 09/16/2024 Telephone [facility] MEDICINE [address] [place] [address] Donta Mike MD [address] [place], [place] [phone] Nurse Triage Social History Tobacco Use Types Packs/Day Years Used Date Smoking Tobacco: Never Assessed Sex and Gender Information Value Date Recorded Sex Assigned at Male 08/23/2024 10:58 AM EDT Legal Sex Male 10:48 AM EDT Gender Identity Male 08/23/2024 10:58 AM EDT Sexual Orientation Straight 08/30/2024 10 :27 AM EDT documented as of this encounter Miscellaneous Notes * Telephone Encounter - Lillian Rosado RN - 09/16/2024 12:59 PM EDT Called pt. Via [email or web address] lang interpreter Chastity [id number]. Busy signal came on phone. Called back x2. And got busy signal again. Verified phone number with lang interpreter. RE: Chest pain * Telephone Encounter - Radha Ventura - 09/16/2024 11:56 AM EDT Symptom: Chest Pain - Adult Outcome: Talk to a nurse or provider within 15 minutes Reason: Getting worse The caller accepted this outcome. documented in this encounter Plan of Treatment Upcoming Encounters Date Type Department Care Team ([facility] st Contact Info) Description 01/24/2025 9:00 AM EDT Telemedicine [facility] MED & PEDS [address] [place] [address] Donta Mike MD [address] [place] [address] documented as of this encounter Visit Diagnoses Not on filedocumented in this encounter Care Teams Music Professionals Relationship Specialty Start Date End Date Donta Mike MD [address] [place] [address] PCP - General Internal Medicine 08/30/24 documented as of this encounter
[2025-01-10 09:14] LABS: Prostate Specific Antigen 0.18 ng/mL (<0.05-4.0)
== END 2025-01-10 07:14 | disposition home or self-care (01) ==
LOC: HO.LAB 07:13
PROVIDERS: Visit Provider Nurse Practitioner Family
DX: Z12.5 Encounter for screening for malignant neoplasm of prostate (principal); N40.0 Benign prostatic hyperplasia without lower urinary tract symptoms
CPT/HCPCS: 36415; 84153

== ENCOUNTER 2025-01-26 15:17 | Outpatient (REF) | payer OTHER, SELFPAY ==
--- OUTSIDE RECORDS SUMMARY | 2025-01-24 09:00 | XMS_ITS | Encounter Summary ---
Author Organization [employer] Address [address] [facility] [address] [place] [address] Care Team Providers Care Clinical Dietician Name Role Phone Donta Mike MD Primary Care Prov ider Reason for Referral * Consultation (Routine) - Authorized Specialty Diagnoses / Procedures Referred By Chelo sol Referred To Contact Diagnoses Seborrheic dermatitis Donta Mike MD [address] [place] [address] Phone: tel: fax: Josh Jorge [address] [place] [phone] Phone: tel: fax: Referral ID Status Reason Start Date Expiration Date Visits Requested Visits Authorized [id number] Authorized Specialty Services Required 01/24/2025 01/24/2026 1 1 Encounter Details Date Type Department Care Team (Late st Contact Info) Description 01/24/2025 9:00 AM EDT Telemedicine [facility] [address] [place] [address] Donta Mike MD [address] [place], [place] [phone] Type 2 diabetes mellitus without complication, without long-term current use of insulin (CMS/HCC) (Primary Dx); Primary hypertension; Seborrheic dermatitis Social History Tobacco Use Types Packs/Day Years [...] AM EDT documented as of this encounter Last Filed Vital Signs Vital Sign Reading Time Taken Comments Blood Pressure 120/72 01/24/2025 9:19 AM EDT Pulse - - Temperature - - Respiratory Rate - - Oxygen Saturation - - Inhaled Oxygen Concentration - - Weight - - Height - - Body Mass Index - - documented in this encounter Progress Notes * Donta Avalos MD - 01/24/2025 9:00 AM EDT Subjective Patient ID: Javed Fitzgerald is a 64 y.o. male who presents for No chief complaint on file.. Hypertension This is a chronic problem. The problem is controlled. Pertinent negatives include no chest pain, headaches, palpitations or shortness of breath. Review of Systems Respiratory: Negative for shortness of breath. Cardiovascular: Negative for chest pain and palpitations. Neurological: Negative for headaches. Objective Physical Exam Neurological: General: No focal deficit present. Mental Status: He is oriented to person, place, and time. Psychiatric: Mood and Affect: Mood normal. Behavior: Behavior normal. Assessment/Plan Problem List Items Addressed This Visit Hypertension Controlled, continue current treatment, keep low sodium diet and exercise as tolerated, follow up in 3 months Type 2 diabetes mellitus without complication (CMS/HCC) - Primary Controlled, no episode of hypoglycemia, will order new A1c to be done in 1 month, keep low carb/no sugar diet Relevant Orders Hemoglobin A1c Seborrheic dermatitis Skin condition did not improved with ketoconazole shampoo, will refer to dermatology Relevant Orders Referral to Dermatology documented in this encounter Miscellaneous Notes * Assessment & Plan Note - Donta Avalos MD - 01/24/2025 10:00 AM EDTAssociated Problem(s): Seborrheic dermatitis Skin condition did not improved with ketoconazole shampoo, will refer to dermatology * Assessment & Plan Note - Donta Avalos MD - 01/24/2025 9:58 AM EDTAssociated Problem(s): Type 2 diabetes mellitus without complication (CMS/HCC) Controlled, no episode of hypoglycemia, will order new A1c to be done in 1 month, keep low carb/no sugar diet * Assessment & Plan Note - Donta Avalos MD - 01/24/2025 9:57 AM EDTAssociated Problem(s): Hypertension Controlled, continue current treatment, keep low sodium diet and exercise as tolerated, follow up in 3 months documented in this encounter Plan of Treatment Upcoming Encounters Date Type Department Care Team (Late st Contact Info) Description 02/08/2025 2:45 PM EDT Office Visit [facility] [address] [place] [address] Wang Lynch, RAYNA [address] [place] [address] Scheduled Orders Name Type Priority Associated Diagnoses Orde r Schedule Hemoglobin A1c Lab Routine Type 2 diabetes mellitus without complication, without long-term current use of insulin (CMS/[facility]) Expected: 01/24/2025 (Approximate), Expires: 01/24/2026 Scheduled Referrals Name Type Priority Associated Diagnoses Order Schedule Referral to Dermatology Outpatient Referral Routine Seborrheic dermatitis Expected: 01/24/2025 (Approximate), Expires: 01/24/2026 documented as of this encounter Visit Diagnoses Diagnosis Type 2 diabetes mellitus without complication, without long-term current use of insulin (CMS/[facility])- Primary Primary hypertension Unspecified essential hypertension Seborrheic dermatitis Unspecified seborrheic dermatitis documented in this encounter Additional Health Concerns Assessment Noted Time PHQ-9 Depression Total Score: 17 09/26/ 025 3:19 PM EDT documented as of this encounter Care Teams Clinical Dietician Relationship Specialty Start Date End Date Donta Mike MD [address] [place] [address] PCP - General Internal Medicine 08/30/24 documented as of this encounter
--- OUTSIDE RECORDS SUMMARY | 2025-01-26 16:46 | XMS_ITS | Encounter Summary ---
Author Organization [employer] Address [address] [facility] [address] [place] [address] Care Team Providers Care Cruise Director Name Role Phone Donta Mike MD Primary Care Prov ider Encounter Details Date Type Department Care Team (Latest Contact Info) Description 01/24/2025 Travel Social History Tobacco Use Types Packs/Day Years [...] Description 02/08/2025 2:45 PM EDT Office Visit [facility] [address] [place] [address] Wang Lynch CNP [address] [place] [address] documented as of this encounter Visit Diagnoses Not on filedocumented in this encounter Additional Health Concerns Assessment Noted Time PHQ-9 Depression Total Score: 17 025 3:19 PM EDT documented as of this encounter Care Teams Cruise Director Relationship Specialty Start Date End Date Donta Mike MD [address] [place] [address] PCP - General Internal Medicine 08/30/24 documented as of this encounter
--- OUTSIDE RECORDS SUMMARY | 2025-01-26 16:46 | XMS_ITS | Clinical Summary ---
Author Organization [employer] Address [address] [facility] 7[address] [place] [address] Care Team Providers Care Skein Tier Name Role Phone Donta Mike MD Primary Care Prov ider Allergies No known active allergies Medications * This document contains information received from the source organization and may not represent a complete record from that organization. FREESTYLE LITE test stripIndications: Type 2 diabetes mellitus without complication, 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 termite inspector insulin use (CMS/HCC) Please check sugar 4 [...] 2 diabetes mellitus without complication, 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 termite inspector insulin use (CMS/HCC) Take 1 tablet (1,000 mg) by mouth with breakfast and with evening meal. 180 tablet 09/23/19 026 Active sertraline (Zoloft) 50 MG tablet Take 1 tablet (50 mg) by mouth Once per day. 90 tablet 3 09/23/19 25 Active ammonium lactate (Lac-Hydrin) 12 % lotion Apply topically if needed for dry skin. 396 g 3 09/23/19 25 Active aspirin 81 MG chewable tabletIndications :[facility] current use of anticoagulant Chew 1 tablet (81 mg) Once per day. 90 tablet 3 09/23/19 25 Active pantoprazole (Protonix) 40 MG EC tabletIndications :Gastroesophageal reflux disease, 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 esophagitis present Take 1 tablet (40 mg) by mouth before breakfast. Do not crush, chew, or split. 90 tablet 3 09/23/19 25 Active Blood Pressure kit 1 kit Once per day. 1 kit 11/23/19 Active SITagliptin (Januvia) 100 MG tablet Take 1 tablet (100 mg) by mouth Once per day. 90 tablet 3 11/23/19 Active Blood Glucose Monitoring Suppl (FreeStyle Lite) device Inject under the skin 2 times daily. Test daily before all meals/snacks and once before bedtime. 1 each 11/23/19 25 Active Alcohol Sheets (Alcoh-Wipe) sheet Test daily before all meals/snacks and once before bedtime. 1 each 11/23/19 25 Active FreeStyle lancets 1 each by Other route 2 times daily. 100 each 12 11/23/19 25 Active FREESTYLE LITE test strip Monitor glucose BID 100 each 11/23/19 25 Active ketoconazole (NIZOral) 2 % shampoo Apply topically 2 (two) times a week. 480 mL 1 11/25/19 25 Active empagliflozin (Jardiance) 25 MG Take 1 tablet (25 mg) by mouth Once per day. 30 tablet 11 12/27/19 25 Active zolpidem CR (Ambien CR) 12.5 MG ER tablet TAKE 1 TABLET BY MOUTH IF NEEDED AT BEDTIME FOR SLEEP. DO NOT CRUSH, CHEW, OR SPLIT. 30 tablet 01/14/20 25 Active cyclobenzaprine (Flexeril) 10 MG tabletIndications :Chronic low back pain with bilateral sciatica, unspecified back pain laterality Take 1 tablet (10 mg) by mouth 2 times daily for 10 days. 20 tablet 01/17/20 Active ibuprofen 400 MG tablet Take 1 tablet (400 mg) by mouth every 8 (eight) hours if needed for moderate pain or fever. 90 tablet 01/17/20 25 025 Active zolpidem CR (Ambien CR) 12.5 MG ER tablet TAKE 1 TABLET BY MOUTH IF NEEDED AT BEDTIME FOR SLEEP. DO NOT CRUSH, CHEW, OR SPLIT. 30 tablet 11/23/19 25 025 Discontinued Active Problems Problem Noted Date Diagnosed Date Seborrheic dermatitis 01/24/2025 Assessment & Plan (01/24/2025 10:00 AM EDT): Skin condition did not improved with ketoconazole shampoo, will refer to dermatology Benign paroxysmal positional vertigo due to bilateral [...] anxiety 09/26/2024 Hypertension 09/23/2024 Assessment & Plan (01/24/2025 9:57 AM EDT): Controlled, continue current treatment, keep low sodium diet and exercise as tolerated, follow up in 3 months Assessment & Plan (11/22/2024 11:54 AM EDT): [...] diabetes mellitus without complication Assessment & Plan (01/24/2025 9:58 AM EDT): Controlled, no episode of hypoglycemia, will order new A1c to be done in 1 month, keep low carb/no sugar diet Assessment & Plan (11/22/2024 11:55 AM EDT): [...] left shoulder Rotator cuff 2016, low back 2005 All: - Meds: as above Screening colon cancer: due Screening lung cancer: due Resolved Problems Problem Noted Date Diagnosed Date Resolved Date Atrial fibrillation 09/23/2024 09/24/19 25 Encounters * This document contains information received from the source organization and may not represent a complete record from that organization. Date Type Department Care Team Description 01/24/2025 9:00 AM EDT Telemedicine [facility] [address] [place] [address] Donta Mike MD Type 2 diabetes mellitus without complication, without long-term current use of insulin ([facility]) (Primary Dx); Primary hypertension; Seborrheic dermatitis 01/24/2025 Travel 01/23/2025 Telephone [facility] [address] [place] [address] Donta Mike MD Lab Orders 01/23/2025 Telephone [facility] [address] [place] [address] Donta Mike MD chart prep 01/16/2025 3:30 PM EDT Office Visit [facility] [address] [place] [address] Ainsley Hayward MD Chronic low back pain with bilateral sciatica, unspecified back pain laterality (Primary Dx) 01/16/2025 Travel 01/16/2025 Telephone [facility] [address] [place] [address] Donta Mike MD Nurse Triage 01/12/2025 Refill [facility] [address] [place] [address] Donta Mike MD 12/30/2024 Telephone [facility] [address] [place] [address] Donta Mike MD RV APPT 12/26/2024 Travel 12/23/2024 Telephone [facility] [address] [place] [address] Donta Mike MD chart prep 12/22/2024 Travel 12/20/2024 Telephone [facility] [address] [place] [address] Donta Mike MD Referral 12/20/2024 Telephone [facility] [address] [place] [address] Donta Mike MD Referral 12/14/2024 Telephone [facility] [address] [place] [address] Donta Mike MD concerns 12/14/2024 Orders Only [facility] [address] [place] [address] Donta Mike MD Abdominal aortic aneurysm (AAA) without rupture, unspecified part ([facility]/HCC) (Primary Dx) 12/14/2024 Telephone [facility] [address] [place] [phone] Donta Mike MD INCIDENTAL FINDING 12/06/2024 Telephone [facility] [address] [place] [address] Donta Mike MD Results 11/22/2024 8:45 AM EDT Office Visit [facility] [address] [place] [address] Donta Mike MD Primary hypertension (Primary Dx); Type 2 diabetes mellitus without complication, 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 termite inspector insulin use (CMS/[facility]); Mixed hyperlipidemia; Benign paroxysmal positional vertigo due to bilateral vestibular disorder; Epididymitis with no abscess; Difficulty walking; Seborrheic dermatitis; Mass of right side of neck 11/22/2024 Refill [facility] [address] [place] [address] Donta Mike MD 11/22/2024 Travel 11/22/2024 Orders Only [facility] [address] [place] [address] Donta Mike MD 11/20/2024 Refill [facility] [address] [place] [address] Donta Mike MD from Last 3 Months [...] Pressure 120/72 01/24/2025 9:19 AM EDT Pulse 76 01/16/2025 3:03 PM EDT Temperature 36.7 C (98 F) 01/16/2025 3:03 PM EDT Respiratory Rate 20 01/16/2025 3:03 PM EDT Oxygen Saturation 99% 11/22/2024 8:46 AM EDT Inhaled Oxygen Concentration - - Weight 86.6 kg (191 lb) 01/16/2025 3:03 PM EDT Height 186.7 cm (6' 1.5 ) 11/22/2024 8:46 AM EDT Body Mass Index 24.86 11/22/2024 8:46 AM EDT Plan of Treatment Upcoming Encounters Date Type Department Care Team (Late st Contact Info) Description 02/08/2025 2:45 PM EDT Office Visit [facility] [address] [place] [address] LynchWang, [facility] [address] [place] [address] Health Maintenance Due Date Last Done Comments [...] Screening 09/22/2025 09/22/2024 SDOH Screening 09/22/2025 09/22/2024 Diabetes: Urine Protein Screening 11/28/2025 11/28/2024 Lipid Panel 11/28/2025 11/28/2024 Lung Cancer Screening 12/09/2025 12/09/2024 Tobacco Screening 01/16/2026 01/16/2025 RSV Patients and Patients Aged 60 years [...] 2 diabetes mellitus without complication, 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 fci insulin use (CMS/HCC) LIPID PANEL, STANDARD Routine 11/28/2024 8:45 AM EDT Type 2 diabetes mellitus without complication, 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 fci insulin use (CMS/HCC) ALBUMIN, RANDOM URINE W/CREATININE Routine 11/28/2024 8:40 AM EDT Type 2 diabetes mellitus without complication, 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 fci insulin use (CMS/HCC) CBC WITH AUTO DIFFERENTIAL Routine 11/28/2024 8:25 AM EDT IRON AND TOTAL IRON BINDING CAPACITY Routine 11/28/2024 8:25 AM EDT BASIC METABOLIC PANEL Routine 11/28/2024 8:25 AM EDT HEPATITIS C AB W/REFL TO HCV RNA, QN, PCR Routine 11/28/2024 8:25 AM EDT Type 2 diabetes mellitus without complication, 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 fci insulin use (CMS/HCC) HIV 1/2 ANTIGEN/ANTIBODY, FOURTH GENERATION W/RFL Routine 11/28/2024 8:25 AM EDT Type 2 diabetes mellitus without complication, 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 fci insulin use (CMS/HCC) POCT GLYCATED HEMOGLOBIN, TOTAL Routine 11/22/2024 8:50 AM EDT Type 2 diabetes mellitus without complication, 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 termite inspector insulin use (CMS/HCC) POCT GLUCOSE Routine 11/22/2024 8:49 AM EDT Type 2 diabetes mellitus without complication, 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 fci insulin use (CMS/HCC) from Last 3 Months Results * CT Soft Tissue Neck w/ Contrast (12/20/2024 7:56 AM EDT) Anatomical Region Laterality Modality Head, Neck Computed Tomogra phy 12/20/2024 7:56 AM EDT Narrative 12/20/2024 8:47 AM EDT [address] [address] [address] Scan Report Signed with Addenda Patient: Javed Kirkpatrick MR#: [id number] : 1960 Acct:[id number] Age/Sex: 64 / M ADM Date: 12/20/24 Loc: HO.CT Attending Dr: Donta Avalos MD Ordering Physician: Donta Mike MD Date of Service: 12/20/24 Procedure(s): CT soft tissue neck w IV con Accession Number(s): [id number] cc: Donta Mike MD Report Number: [id number]: Total DLP = 316.00 mGy-cm ADDENDUM ADDENDUM [...] palatine tonsils, right greater than left side. Counter Roller spaces, parapharyngeal spaces demonstrated no gross masses. [...] by Javed Trinidad MD in OV> 12/20/24 0844 DD/ 5 TD/TT: 12/20/24815 Call Or Contact Centre Coach: Procedure Note Dakotater, Image - 12/20/[address] [address] [address] Scan Report Signed with Addenda Patient: Javed Kirkpatrick MR#: [id number] : 1960cct:[id number] Age/Sex: 64 / MADM Date: 12/20/24 Loc: HO.CT Attending Dr: Donta Avalso MD Ordering Physician: Donta Mike MD Date of Service: 12/20/24 Procedure(s): CT soft tissue neck w IV con Accession Number(s): [id number] cc: Donta Mike MD Report Number: [id number]: Total DLP = 316.00 mGy-cm ADDENDUM ADDENDUM [...] palatine tonsils, right greater than left side. Counter Roller spaces, parapharyngeal spaces demonstrated no gross masses. [...] 12/20/24 0844 DD/ 0756 TD/TT: 12/20/24 0816 Call Or Contact Centre Coach: Donta Avalos MD IMG CT PROCEDURES Edited Result - Final * CT Lung Screening Low dose (12/09/2024 9:21 AM EDT) Anatomical Region Laterality Modality Lung Computed Tomogra phy 12/09/2024 9:2 1 AM EDT Narrative 12/09/2024 10:02 AM EDT [place] [address] [address] Scan Report Signed Patient: Javed Kirkpatrick MR#: [id number] : 1960 Acct:[id number] Age/Sex: 64 / M ADM Date: 12/09/24 Loc: HO.CT Attending Dr: Nicole Whittington PA-C Ordering Physician: Nicole Whittington PA-C Date of Service: 12/09/24 Procedure(s): CT lung screening Accession Number(s): [id number] cc: Donta Mike MD; Nicole Whittington PA-C Report Number: [id number]: Total DLP = 58.00 mGy-cm EXAMINATION: CT [...] for CT CHEST LOW DOSE CANCER SCREENING ([id number]) can be placed. Electronically signed by: Robb Veronica MD 12/09/2024 09:59 AM EDT Dictated By: Robb Veronica MD Signed By: <Electronically signed by Robb Veronica MD in OV> 12/09/24 0959 DD/ 0 TD/TT: 12/09/24936 Call Or Contact Centre Coach: Procedure Note Donotuseinterpreter, Image - 12/09/[address] [address] [address] Scan Report Signed Patient: Javed Kirkpatrick MR#: [id number] : 2Acct:[id number] Age/Sex: 64 / MADM Date: 12/09/24 Loc: .CT Attending Dr: Nicole Whittington PA-C Ordering Physician: Nicole Whittington PA-C Date of Service: 12/09/24 Procedure(s): CT lung screening Accession Number(s): [id number] cc: Donta Mike MD; Nicole Whittington PA-C Report Number: [id number]: Total DLP = 58.00 mGy-cm EXAMINATION: CT [...] for CT CHEST LOW DOSE CANCER SCREENING ([id number]) can be placed. Electronically signed by: Robb Veronica MD 12/09/2024 09:59 AM EDT Dictated By: Robb Veronica MD Signed By: <Electronically signed by Robb Veronica MD in OV> 12/09/24 0959 DD/ TD/TT: 12/09/24 0937 Call Or Contact Centre Coach: [facility] External Provider IM CT PROCEDURES Final Result * TSH W/Reflex to FT4 (11/28/2024 8:45 AM EDT) TSH reflex Free T4 0.66 0.32 - 4.0 uIU/mL [facility] Blood Venous blood specimen / Unknown 11/28/2024 8:45 AM EDT 11/28/2024 2:03 PM EDT Donat Avalos MD LAB BLOOD ORDERABL ES Final Result Performing Organization Address [facility] Co de Phone Number [facility] [address] [place] [phone] * Lipid Panel, Standard (11/28/2024 8:45 AM EDT) Triglycerides 56 <150 mg/dL [facility] Comment:Desirable Triglyceri de: less than 150 mg/dLBorderline High Triglyceride 150-199 mg/dLHigh Triglyceride: 200-499 mg/dLVery High Triglyceride: greater than or equal to 5OO mg/dL Cholesterol 163 <200 mg/dL [facility] Comment:Desirable Cholestero l: less than 200 mg/dLBorderline High Cholesterol: 200-239 mg/dLHigh Cholesterol: greater than 239 mg/dL LDL Cholesterol Calculated 99 <100 mg/dL [facility] Comment:Desirable LDL: less than 100 mg/dLNear Optimal/Above Optimal LDL: 110- 129 mg/dLBorderline High LDL: 130-159 mg/dLHigh LDL: 160-189 mg/dLVery High LDL: greater than or equal to 190 mg/dL HDL Cholesterol 53 >40 mg/dL [facility] Comment:Desirable HDL: great er than 40 mg/dL Note: This HDL assay may give artificially low results in patients with liver disease. Blood Venous blood specimen / Unknown 11/28/2024 8:45 AM EDT 11/28/2024 2:03 PM EDT us Donta Avalos MD LAB BLOOD ORDERABL ES Final Result Performing Organization Address [facility]/ZIP Co de Phone Number [facility] [address] [place] [phone] * (ABNORMAL) Albumin, Random Urine W/Creatinine (11/28/2024 8:40 AM EDT) Pathologist [facility] Creatinine, Urine 37.40 mg/dL [facility] Microalbumin Urine 32.0 mg/L H [facility] Microalbum Creatinine Ratio Ur 85.5(H) <30 ug/mg cr [facility] Comment:Albumin/Creatinine R atio Reference Ranges: Normal: < 30 ug/mg creatinine Microalbuminuria: 30 - 300 ug/mg creatinineClinical Albuminuria: > 300 ug/mg creatinine Urine (Urine, Random) 11/28/2024 8:40 AM EDT 11/28/2024 2:10 PM EDT us Donta Avalos MD LAB URINE ORDERABL ES Final Result [facility] [address] [place] [phone] * (ABNORMAL) CBC auto differential (11/28/2024 8:25 AM EDT) Pathologist [facility] White Blood Count 6.2 4.8 - 10.8 X10*3/uL [facility] Red Blood Count 4.51(L) 4.60 - 5.80 X10*6/uL [facility] Hemoglobin 13.1(L) 14.0 - 18.0 g/dl [facility] Hematocrit 39.8(L) 42.0 - 52.0 % [facility] Mean Corpuscular Volume 88.2 80.0 - 98.0 fL [facility] Mean Corpuscular Hemoglobin 29.0 27.0 - 33.0 pg [facility] Mean Corpuscular HGB Conc 32.9 31.0 - 36.0 g/dl [facility] Red Cell Distribution Width 15.2 11.0 - 16.0 % [facility] Platelet Count 214 160 - 400 X10*3/uL [facility] Mean Platelet Volume 12.1 9.4 - 12.4 fL [facility] Neutrophils Percent Auto 41.1(L) 45 - 73 % [facility] Imm Gran Pct Auto 0.3 0.0 - 0.4 % [facility] Lymphocytes Percent Auto 47.0(H) 20 - 40 % [facility] Monocytes Percent Auto 9.2 2 - 11 % [facility] Eosinophils Percent Auto 1.9 0 - 4 % [facility] Basophils Percent Auto 0.5 0 - 2 % [facility] NRBC Pct Auto 0.0 0.0 - 0.2 /100WBC [facility] Neutrophils Absolute Auto 2.6 2.0 - 8.3 x10*3/uL [facility] Imm Gran Abs Auto 0.02 0.00 - 0.03 X10*3/uL [facility] Lymphocytes Absolute Auto 2.9 1.2 - 4.9 X10*3/uL [facility] Monocytes Absolute Auto 0.6 0.1 - 1.2 X10*3/uL [facility] Eosinophils Absolute Auto 0.1 0.0 - 0.4 X10*3/uL [facility] Basophils Absolute Auto 0.0 0.0 - 0.2 X10*3/uL [facility] NRBC Abs Auto 0.000 0.0 - 0.012 X10*3/uL [facility] 11/28/2024 8:25 AM EDT 11/28/2024 2:03 PM EDT us Generic External Data Provider LAB BLOOD ORDERAB LES Final Result [facility] [address], [place] [phone] * Hepatitis C Antibody with Reflex to HCV, RNA, Quantitative, Real-Time PCR (11/28/2024 8:25 AM EDT) Hepatitis C Antibody Nonreactive Nonreactive [facility] Comment:Antibodies to HCV no t detected; does not exclude early acuteHCV infection. Blood Venous blood specimen / Unknown 11/28/2024 8:25 AM EDT 11/28/2024 2:03 PM EDT us Donta Avalos MD LAB BLOOD ORDERABL ES Final Result Performing Organization Address [facility]/ZIP Co de Phone Number [facility] [address] [place] [phone] * Iron And Total Iron Binding Capacity (11/28/2024 8:25 AM EDT) Pathologist [facility] Iron 123 45 - 160 mcg/dL [facility] Total Iron Binding Capacity 256 228 - 428 mcg/dL [facility] Percent Iron Saturation 48 15 - 50 % [facility] Unsaturated Iron Binding 133 ug/dL [facility] 11/28/2024 8:25 AM EDT 11/28/2024 2:03 PM EDT us Generic External Data Provider LAB BLOOD ORDERAB LES Final Result Performing Organization Address [facility]/ZIP Co de Phone Number [facility] [address] [place] [address] [phone] * HIV-1/2 Antigen and Antibodies, Fourth Generation, with Reflexes (11/28/2024 8:25 AM EDT) HIV AB/AG Nonreactive Nonreactive [facility] Comment:HIV-1 p24 Ag and/or HIV-1/HIV-2 Ab not detected.A test result that is nonreactive does not exclude thepossibility of exposure to or infection with HIV-1 and/orHIV-2. Nonreactive results in this assay for individualswith prior exposure to HIV-1 and/or HIV-2 may be due toantigen and antibody levels that are below the limit ofdetection of this assay.The AorTx HIV Ag/Ab Combo assay result andsupplemental assay results should be interpreted inconjunction with the patient's clinical presentation,history and other laboratory results. If the results areinconsistent with clinical evidence, additional testing issuggested to confirm the result. Blood Venous blood specimen / Unknown 11/28/2024 8:25 AM EDT 11/28/2024 2:03 PM EDT us Donta Avalos MD LAB BLOOD ORDERABL ES Final Result Performing Organization Address [facility] Co de Phone Number [facility] [address] [place] [phone] * (ABNORMAL) Basic Metabolic Panel (11/28/2024 8:25 AM EDT) Sodium 138 135 - 145 mmol/L [facility] Potassium 3.9 3.3 - 5.1 mmol/L [facility] Chloride 106 96 - 108 mmol/L [facility] Carbon Dioxide 25 22 - 29 mmol/L [facility] Anion Gap 11(L) 12 - 20 [facility] Urea Nitrogen (BUN) 11 9 - 16 mg/dL [facility] Creatinine, Serum 0.76 0.5 - 1.4 mg/dL [facility] Estimated Glomerular Filt Rate >60 [facility] Comment:Chronic Kidney Disea se: Estimated GFR < 60 mL/min/[id number] Kidney Disease: Estimated GFR < 15 mL/min/1.73m2 Glucose 152(H) 60 - 115 mg/dL [facility] Calcium 9.2 8.4 - 10.2 mg/dL [facility] 11/28/2024 8:25 AM EDT 11/28/2024 2:03 PM EDT us Generic External Data Provider LAB BLOOD ORDERAB LES Final Result Performing Organization Address [facility] Co de Phone Number [facility] [address] [place] [phone] * (ABNORMAL) POCT HGB A1C (11/22/2024 [...] Media Lot # [id number] Lot# Expiration Date 401 Blood Capillary blood specimen / Unknown 11/22/2024 8:49 AM EDT Donta Avalos MD POINT OF CARE TEST ENTER/EDIT ORDERABLES Final Result from Last 3 Months Insurance [facility] < 65 [facility] STANDARD Care Teams Skein Tier Relationship Specialty Start Date End Date Donta Mike MD [address] [place] [phone] PCP - General Internal Medicine 08/30/24
--- OUTSIDE RECORDS SUMMARY | 2025-01-26 16:46 | XMS_ITS | Encounter Summary ---
Author Organization [employer] Address [address] [facility] 7 [place] [address] Care Team Providers Care School Traffic Guard Name Role Phone Donta Mike MD Primary Care Prov ider Reason for Visit * Reason Onset Date Comments Durable Medical Equipment 10/11/2024 Encounter Details Date Type Department Care Team (Late st Contact Info) Description 10/11/2024 Telephone [facility] [address] [place], [place] [phone] Donta Mike MD [address] [place] [address] Durable Medical Equipment Social History Tobacco Use [...] please provide DX BP machine queued for [facility] TC from pt requesting DME order for a cane , blood pressure kit to be sent too [facility]. Contact pt at [phone] * Telephone Encounter - Anny Erwin - 10/11/2024 8:33 AM EDT TC from pt requesting DME order for a cane , blood pressure kit to be sent too [facility]. Contact pt at [phone] documented in this encounter Plan of Treatment Upcoming Encounters Date Type Department Care Team (Late st Contact Info) Description 02/08/2025 2:45 PM EDT Office Visit [facility] [address] [place] [address] Wang Lynch, COMMODITY ANALYST [address] [place], [place] [phone] documented as of this encounter Visit Diagnoses Not on filedocumented in this encounter Additional Health Concerns Assessment Noted Time PHQ-9 Depression Total Score: 17 025 3:19 PM EDT documented as of this encounter Care Teams School Traffic Guard Relationship Specialty Start Date End Date Donta Mike MD [address] [place] [address] PCP - General Internal Medicine 08/30/24 documented as of this encounter
--- OUTSIDE RECORDS SUMMARY | 2025-01-26 16:46 | XMS_ITS | Encounter Summary ---
Author Organization [employer] Address [address] [facility] [address] [place] [address] Care Team Providers Care Binding Cementer French Cord Name Role Phone Donta Mike MD Primary Care Prov ider Reason for Visit * Reason Comments Med Change Request Encounter Details Date Type Department Care Team ([facility] st Contact Info) Description 11/22/2024 Refill [facility] [address] [place], [place] [phone] Donta Mike MD [address] [place] [address] Social History Tobacco Use Types Packs/Day Years [...] Description 02/08/2025 2:45 PM EDT Office Visit [facility] [address] [place] [address] Wang Lynch CNP [address] [place] [address] documented as of this encounter Visit Diagnoses Not on filedocumented in this encounter Additional Health Concerns Assessment Noted Time PHQ-9 Depression Total Score: 17 025 3:19 PM EDT documented as of this encounter Care Teams Binding Cementer French Cord Relationship Specialty Start Date End Date Donta Mike MD [address] [place] [address] PCP - General Internal Medicine 08/30/24 documented as of this encounter
--- OUTSIDE RECORDS SUMMARY | 2025-01-26 16:47 | XMS_ITS | Encounter Summary ---
Author Organization [employer] Address 75 [facility] 7t [place] [address] Care Team Providers Care Component Lab Tech Name Role Phone Donta Mike MD Primary Care Prov ider Reason for Visit * Reason Onset Date Comments Call Back Request 09/16/2024 Encounter Details Date Type Department Care Team (Late st Contact Info) Description 09/16/2024 Telephone [facility] MEDICINE [address] [place] [address] Donta Mike MD [address] [place], [place] [phone] Call Back Request Social History Tobacco Use [...] 1:31 PM EDT TC to patient via interpreter for the deaf. Patient stated he has recently moved her from [place], [place] and ran out of his medication a few days ago. One of those medications was Metoprolol. Patient denies chest pain currently but does admit to chest pain last week, and again last night. Patient also has a history of open heart surgery. This is a new patient. NO notes or med list available. Patient stated he used [facility] in [place], [place]. RN will call pharmacy and do a med rec. Patient alsostated he was recently seen in [facility], so this RN will obtain ER notes. * Telephone Encounter - Radha Ventura - 09/16/2024 11:40 AM EDT Tc from pt reporting was scheduled for telephone visit with PCP and never received call from no one. Pt also inform he's been up since 8am waiting virtualization architect. Please return call [phone] documented in this encounter Plan of Treatment Upcoming Encounters Date Type Department Care Team (Late st Contact Info) Description 02/08/2025 2:45 PM EDT Office Visit [facility] CHC MED & PEDS [address] [place] [address] Wang Lynch, RAYNA 505 [place] [address] documented as of this encounter Visit Diagnoses Not on filedocumented in this encounter Care Teams Component Lab Tech Relationship Specialty Start Date End Date Donta Mike MD 505 [place] [address] PCP - General Internal Medicine 08/30/24 documented as of this encounter
--- OUTSIDE RECORDS SUMMARY | 2025-01-26 16:47 | XMS_ITS | Clinical Summary ---
Author Organization [address] [facility] Address [address] [place] [address] Phone Care Team Providers Care Cruise Staff Member Name Role Phone FloresDonta Stanley Primary Care Provide r Allergies No known active allergies Medications ammonium lactate (AMLACTIN) 12 % cream Apply topically if needed for dry skin. 560 g 2 5 12/09/19 26 Active Encounters Date Type Department Care Team Description 12/08/2024 9:45 AM EDT Office Visit Orthopedic Surgery [place] [address] [phone] Stanley Mayen DPM Controlled type 2 diabetes [...] Team ([facility] st Contact Info) Description 02/13/2025 9:30 AM EDT Office Visit Orthopedic Surgery [facility] [address] [phone] Stanley Mayen DPM [address] [address] Health Maintenance Due Date Last Done Comments [...] Diabetes: Annual Urine Albumin-Creatinine Ratio (uACR) 09/28/2024 Medicare Annual Wellness Visit 09/28/2024 Social Influencers of Health Screening 09/28/2024 COVID-19 Vaccine (1 - 2023-2 5 season) 2025 Influenza Vaccine (#1) 2025 9, 05/14/2006 Diabetes: Blood Sugar Contro l Test (HGBA1C) 05/25/2025 11/22/2024 Diabetes: Annual GFR (Glomerular Filtration Rate) 11/28/2025 11/28/2024 Hypertension/CHF/CAD Annual BMP Blood Test 11/28/2025 11/28/2024 Lung Cancer Screening (Low Dose CT) 12/09/2025 12/09/2024 Cholesterol Screening (Lipid Panel) 11/28/2029 11/28/2024 HIV [...] ID:[id number] Group ID:[id number] Type:Not on file Address: [facility] [address] [phone] Care Teams Cruise Staff Member Relationship Specialty Start Date End Date Donta Mike [address] [place] [address] PCP - General Internal Medicine 09/28/24
--- OUTSIDE RECORDS SUMMARY | 2025-01-26 16:47 | XMS_ITS | Encounter Summary ---
Author Organization [employer] Address 75 [facility] 7 [place] [address] Care Team Providers Care Lead Python Developer Name Role Phone Donta Mike MD Primary Care Prov ider Reason for Visit * Reason Onset Date Comments chart prep 01/23/2025 Encounter Details Date Type Department Care Team (Late st Contact Info) Description 01/23/2025 Telephone [facility] CHC MED & PEDS [address] [place], [place] [phone] Donta Mike MD [address] [place] [address] chart prep Social History Tobacco Use Types Packs/Day Years [...] encounter Miscellaneous Notes * Telephone Encounter - Shantelle Khan MA - 01/23/2025 8:56 AM EDT Chart Prep Labs: done Images: done Referrals: appointment pending Vaccines due: Covid, Flu, PCV20, Tdap, and Zoster Screenings: colonoscopy, eye Overdue care gaps: Glucose and Disability screen documented in this encounter Plan of Treatment Upcoming Encounters Date Type Department Care Team (Late st Contact Info) Description 02/08/2025 2:45 PM EDT Office Visit [facility] MED & PEDS [address] [place] [address] Wang Lynch CNP 505 [place] [address] documented as of this encounter Visit Diagnoses Not on filedocumented in this encounter Additional Health Concerns Assessment Noted Time PHQ-9 Depression Total Score: 17 025 3:19 PM EDT documented as of this encounter Care Teams Lead Python Developer Relationship Specialty Start Date End Date Donta Mike MD [address] [place] [address] PCP - General Internal Medicine 08/30/24 documented as of this encounter
--- OUTSIDE RECORDS SUMMARY | 2025-01-26 16:47 | XMS_ITS | Encounter Summary ---
Author Organization [employer] Address 75 [facility] 7t [place] [address] Care Team Providers Care Plow Shaker Name Role Phone Donta Mike MD Primary Care Prov ider Reason for Visit * Reason Onset Date Comments Medication Question 09/26/2024 Encounter Details Date Type Department Care Team (Late st Contact Info) Description 09/26/2024 Telephone [facility] MEDICINE [address] [place] [address] Donta Mike MD [address] [place], [place] [phone] Medication Question Social History Tobacco Use Types [...] to further discuss. Please contact pt at [phone]. (Ecuadorean Speaker) documented in this encounter Plan of Treatment Upcoming Encounters Date Type Department Care Team (Late st Contact Info) Description 02/08/2025 2:45 PM EDT Office Visit [facility] MED & PEDS [address] [place], [place] [phone] Wang Lynch, RAYNA 505 [place], [place] [phone] documented as of this encounter Visit Diagnoses Not on filedocumented in this encounter Additional Health Concerns Assessment Noted Time PHQ-9 Depression Total Score: 17 025 3:19 PM EDT documented as of this encounter Care Teams Plow Shaker Relationship Specialty Start Date End Date Donta Mike MD [address] [place], [place] [phone] PCP - General Internal Medicine 08/30/24 documented as of this encounter
--- OUTSIDE RECORDS SUMMARY | 2025-01-26 16:47 | XMS_ITS | Encounter Summary ---
Author Organization [employer] Address 75 [facility] 7t [place] [address] Care Team Providers Care Managing Director Name Role Phone Donta Mike MD Primary Care Prov ider Reason for Visit * Reason Onset Date Comments Referral 12/20/2024 Encounter Details Date Type Department Care Team (Late st Contact Info) Description 12/20/2024 Telephone [facility] MEDICINE [address] [place] [address] Donta Mike MD 505 [place], [place] [phone] Referral Social History Tobacco Use Types Packs/Day [...] re send referral for cardiology to - [facility] [address] [address] documented in this encounter Plan of Treatment Upcoming Encounters Date Type Department Care Team (Late st Contact Info) Description 02/08/2025 2:45 PM EDT Office Visit [facility] CHC MED & PEDS [address] [place] [address] Wang Lynch, RAYNA [address] [place] [address] documented as of this encounter Visit Diagnoses Not on filedocumented in this encounter Additional Health Concerns Assessment Noted Time PHQ-9 Depression Total Score: 17 025 3:19 PM EDT documented as of this encounter Care Teams Managing Director Relationship Specialty Start Date End Date Flores Avalos, Donta, MD [address] [place] [address] PCP - General Internal Medicine 08/30/24 documented as of this encounter
--- OUTSIDE RECORDS SUMMARY | 2025-01-26 16:47 | XMS_ITS | Encounter Summary ---
Author Organization [employer] Address 75 [facility] 7 [place] [address] Care Team Providers Care Spot Welder Body Assembly Name Role Phone Donta Mike MD Primary Care Prov ider Reason for Visit * Reason Onset Date Comments Lab Orders 01/23/2025 Encounter Details Date Type Department Care Team (Late st Contact Info) Description 01/23/2025 Telephone [facility] CHC MED & PEDS [address] [place], [place] [phone] Donta Mike MD 505 [place] [address] Lab Orders Social History Tobacco Use Types Packs/Day Years [...] encounter Miscellaneous Notes * Telephone Encounter - Tricia Matos RN - 01/23/2025 3:21 PM EDT TC placed to pt via [employer] buggy loader ([employer] ID#[id number]) to inform TB test lab order placed. Advised ptlab order placed and pt is able to go to the lab at their convenience. Pt verbalized understanding.Pt asking about physical exam. Advised pt they were booked for a physical exam on 02/08/25 at 2:45 PM. Pt verbalized understanding and denies questions at this time. * Telephone Encounter - Janusz Martinez - 01/23/2025 3:13 PM EDT Tc from pt requesting to do a TB test for program. Contact pt at [phone] documented in this encounter Plan of Treatment Upcoming Encounters Date Type Department Care Team ([facility] st Contact Info) Description 02/08/2025 2:45 PM EDT Office Visit [facility] CHC MED & PEDS [address] [place] [address] Wang Lynch, COMMERCIAL SALES DIRECTOR 505 [place] [address] Scheduled Orders Name Type Priority Associated Diagnoses Orde r Schedule T-SPOT .TB Lab Routine Screening-pulmonary TB Expected: 01/23/2025 (Approximate), Expires: 01/23/2026 documented as of this encounter Visit Diagnoses Diagnosis Screening-pulmonary TB- Primary Screening examination for pulmonary tuberculosis documented in this encounter Additional Health Concerns Assessment Noted Time PHQ-9 Depression Total Score: 17 025 3:19 PM EDT documented as of this encounter Care Teams Spot Welder Body Assembly Relationship Specialty Start Date End Date Donta Mike MD [address] [place] [address] PCP - General Internal Medicine 08/30/24 documented as of this encounter
--- OUTSIDE RECORDS SUMMARY | 2025-01-26 16:47 | XMS_ITS | Encounter Summary ---
Author Organization [employer] Address 75 [facility] 7 [place] [address] Care Team Providers Care Motel Front Desk Attendant Name Role Phone Donta Mike MD Primary Care Prov ider Reason for Visit * Reason Onset Date Comments Nurse Triage 09/16/2024 Encounter Details Date Type Department Care Team (Late st Contact Info) Description 09/16/2024 Telephone [facility] MEDICINE [address] [place] [address] Donta Mike MD [address] [place], [place] [phone] Nurse Triage Social History Tobacco Use Types [...] 09/16/2024 12:59 PM EDT Called pt. Via [employer] parts interpreter Chastity [id number]. Busy signal came on phone. Called back x2. And got busy signal again. Verified phone number with parts interpreter. RE: Chest pain * Telephone Encounter - Radha Ventura - 09/16/2024 11:56 AM EDT Symptom: Chest Pain - Adult Outcome: Talk to a nurse or provider within 15 minutes Reason: Getting worse The caller accepted this outcome. documented in this encounter Plan of Treatment Upcoming Encounters Date Type Department Care Team ([facility] st Contact Info) Description 02/08/2025 2:45 PM EDT Office Visit [facility] MED & PEDS [address] [place] [address] Wang Lynch CNP 505 [place], [place] [phone] documented as of this encounter Visit Diagnoses Not on filedocumented in this encounter Care Teams Motel Front Desk Attendant Relationship Specialty Start Date End Date Donta Mike MD [address] [place] [address] PCP - General Internal Medicine 08/30/24 documented as of this encounter
[2025-01-26 17:48] LABS: MANUAL DIFF FLAG NO
[2025-01-26 18:00] LABS: Hematocrit 40.1 % (42.0-52.0); Hemoglobin 13.3 g/dl (14.0-18.0); Imm Gran Abs Auto 0.03 X10*3/uL (0.00-0.03); Imm Gran Pct Auto 0.5 % (0.0-0.4); Lymphocytes Absolute Auto 2.4 X10*3/uL (1.2-4.9); Mean Corpuscular HGB Conc 33.2 g/dl (31.0-36.0); Mean Corpuscular Hemoglobin 29.8 pg (27.0-33.0); Mean Corpuscular Volume 89.9 fL (80.0-98.0); NRBC Abs Auto 0.000 X10*3/uL (0.0-0.012); NRBC Pct Auto 0.0 /100WBC (0.0-0.2); Platelet Count 232 X10*3/uL (160-400); Red Blood Count 4.46 X10*6/uL (4.60-5.80); White Blood Count 6.2 X10*3/uL (4.8-10.8)
[2025-01-26 18:23] LABS: Alanine Aminotransferase 35 U/L (0-40); Albumin Level 4.7 g/dL (3.5-5.0); Alkaline Phosphatase 55 U/L (39-117); Anion Gap 12 (12-20); Aspartate Amino Transferase 35 U/L (5-37); Blood Urea Nitrogen 18 mg/dL (9-16); Calcium 9.4 mg/dL (8.4-10.2); Carbon Dioxide 28 mmol/L (22-29); Chloride 105 mmol/L (96-108); Cholesterol 153 mg/dL (<200); Estimated Glomerular Filt Rate > 60; HDL Cholesterol 50 mg/dL (>40); Potassium 4.0 mmol/L (3.3-5.1); Sodium 141 mmol/L (135-145); Total Protein 7.5 g/dL (6.5-8.0); Triglycerides 109 mg/dL (<150)
[2025-01-27 07:34] LABS: Hemoglobin A1C 177.0617 umol/L; Total Hemoglobin (HGBA1C) 3516.4854 umol/L
[2025-01-27 09:07] LABS: HIV Num 1 0.05 S/CO (0.00-0.99); ~HepC Num1 0.55 S/CO (0.00-0.79); ~Hepatitis C Antibody Nonreactive (Nonreactive)
[2025-01-31 03:08] LABS: TS Negative Control Passed; TS Panel A 2; TS Panel B 0; TS Positive Control Passed; TSpotTB Negative (Negative)
== END 2025-01-26 15:18 | disposition home or self-care (01) ==
LOC: HO.HHCL 15:17
PROVIDERS: PCP Internal Medicine; Visit Provider Internal Medicine
DX: Z11.1 Encounter for screening for respiratory tuberculosis (principal); Z11.4 Encounter for screening for human immunodeficiency virus [HIV]; Z11.59 Encounter for screening for other viral diseases; E11.9 Type 2 diabetes mellitus without complications
CPT/HCPCS: 36415; 80053; 80061; 82043; 82570; 83036; 84443; 85025; 86481; 86803; 87389

== ENCOUNTER 2025-01-30 08:37 | Day surgery (SDC) | payer OTHER, SELFPAY ==
--- OUTSIDE RECORDS SUMMARY | 2025-01-12 15:46 | XMS_ITS | Encounter Summary ---
Author Organization [employer] Address [address] [facility] 7[address] [place] [address] Care Team Providers Care Calcine Furnace Tender Name Role Phone Donta Mike MD Primary Care Prov ider Reason for Visit * Reason Onset Date Comments Referral 12/20/2024 Encounter Details Date Type Department Care Team (Late st Contact Info) Description 12/20/2024 Telephone [facility] MEDICINE [address] [place] [address] Donta Mike MD [address] [place], [place] [phone] Referral Social History Tobacco Use Types Packs/Day [...] re send referral for cardiology to - [facility]iology [address] [address] documented in this encounter Plan of Treatment Upcoming Encounters Date Type Department Care Team (Late st Contact Info) Description 01/24/2025 9:00 AM EDT Telemedicine [facility] MED & PEDS [address] [place] [address] Donta Mike MD [address] [place] [address] documented as of this encounter Visit Diagnoses Not on filedocumented in this encounter Additional Health Concerns Assessment Noted Time PHQ-9 Depression Total Score: 17 025 3:19 PM EDT documented as of this encounter Care Teams Calcine Furnace Tender Relationship Specialty Start Date End Date FloresDonta Bhagat MD [address] [place] [phone] PCP - General Internal Medicine 08/30/24 documented as of this encounter
--- OUTSIDE RECORDS SUMMARY | 2025-01-12 15:46 | XMS_ITS | Encounter Summary ---
Author Organization [employer] Address [address] [facility] 7t [place] [address] Care Team Providers Care Machine Programmer Name Role Phone Donta Mike MD Primary Care Prov ider Reason for Visit * Reason Comments Med Refill Encounter Details Date Type Department Care Team ([facility] st Contact Info) Description 01/12/2025 Refill [facility] MED & PEDS [address] [place], [place] [phone] Donta Mike MD [address] [place] [address] Social History Tobacco Use Types Packs/Day Years [...] AM EDT documented as of this encounter Plan of Treatment Upcoming Encounters Date Type Department Care Team ([facility] st Contact Info) Description 01/24/2025 9:00 AM EDT Telemedicine [facility] MED & PEDS [address] [place] [address] Donta Mike MD [address] [place] [address] documented as of this encounter Visit Diagnoses Not on filedocumented in this encounter Additional Health Concerns Assessment Noted Time PHQ-9 Depression Total Score: 17 025 3:19 PM EDT documented as of this encounter Care Teams Machine Programmer Relationship Specialty Start Date End Date Donta Mike MD [address] [place] [address] PCP - General Internal Medicine 08/30/24 documented as of this encounter
--- OUTSIDE RECORDS SUMMARY | 2025-01-12 15:46 | XMS_ITS | Encounter Summary ---
Author Organization [employer] Address [address] [facility] 7[address] [place] [address] Care Team Providers Care Operations Examiner Name Role Phone Donta Mike MD Primary Care Prov ider Reason for Visit * Reason Comments Med Change Request Encounter Details Date Type Department Care Team ([facility] st Contact Info) Description 11/22/2024 Refill [facility] MED & PEDS [address] [place], [place] [phone] Donta Mike MD [address] [place] [address] Social History Tobacco Use Types Packs/Day Years [...] Info) Description 01/24/2025 9:00 AM EDT Telemedicine [facility] MED & PEDS [address] [place] [address] Donta Mike MD [address] [place] [address] documented as of this encounter Visit Diagnoses Not on filedocumented in this encounter Additional Health Concerns Assessment Noted Time PHQ-9 Depression Total Score: 17 025 3:19 PM EDT documented as of this encounter Care Teams Operations Examiner Relationship Specialty Start Date End Date Donta Mike MD [address] [place] [phone] PCP - General Internal Medicine 08/30/24 documented as of this encounter
--- OUTSIDE RECORDS SUMMARY | 2025-01-12 15:46 | XMS_ITS | Encounter Summary ---
Author Organization [employer] Address [address] [facility] 7 [place] [address] Care Team Providers Care Automotive General Sales Manager Name Role Phone Donta Mike MD Primary Care Prov ider Reason for Visit * Reason Onset Date Comments Nurse Triage 09/16/2024 Encounter Details Date Type Department Care Team (Late st Contact Info) Description 09/16/2024 Telephone [facility] MEDICINE [address] [place] [address] Donta Mike MD [address] [place], [place] [phone] Nurse Triage Social History Tobacco Use Types [...] 09/16/2024 12:59 PM EDT Called pt. Via [employer] medical social worker Chastity [phone]. Busy signal came on phone. Called back x2. And got busy signal again. Verified phone number with medical social worker. RE: Chest pain * Telephone Encounter - Radha Ventura - 09/16/2024 11:56 AM EDT Symptom: Chest Pain - Adult Outcome: Talk to a nurse or provider within 15 minutes Reason: Getting worse The caller accepted this outcome. documented in this encounter Plan of Treatment Upcoming Encounters Date Type Department Care Team ([facility] st Contact Info) Description 01/24/2025 9:00 AM EDT Telemedicine [facility] MED & PEDS [address] [place] [address] Donta iMke MD [address] [place] [address] documented as of this encounter Visit Diagnoses Not on filedocumented in this encounter Care Teams Automotive General Sales Manager Relationship Specialty Start Date End Date Donta Mike MD [address] [place] [address] PCP - General Internal Medicine 08/30/24 documented as of this encounter
--- OUTSIDE RECORDS SUMMARY | 2025-01-12 15:46 | XMS_ITS | Clinical Summary ---
Author Organization [employer] Address 75 [facility] 7t [place] [address] Care Team Providers Care Operating Room Orderly Name Role Phone Donta Mike MD Primary Care Prov ider Allergies No known active allergies Medications * This document contains information received from the source organization and may not represent a complete record from that organization. [employer] test stripIndications: Type 2 diabetes mellitus without complication, 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 alf insulin use (CMS/HCC) Please check sugar 4 [...] 2 diabetes mellitus without complication, 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 alf insulin use (CMS/HCC) Take 1 tablet (1,000 [...] 09/23/19 Active aspirin 81 MG chewable tabletIndications :alf current use of anticoagulant Chew 1 tablet [...] organization. Date Type Department Care Team Description 01/12/2025 Refill [facility] [address] [facility] [place] [address] Donta Mike MD 12/30/2024 Telephone [facility] [address] [facility] [place] [address] Donta Mike MD RV APPT 12/26/2024 Travel 12/23/2024 Telephone [facility] [address] [place] [address] Donta Mike MD chart prep 12/22/2024 Travel 12/20/2024 Telephone [facility] [address] [place] [address] Donta Mike MD Referral 12/20/2024 Telephone [facility] [address] [place] [address] Donta Mike MD Referral 12/14/2024 Telephone [facility] [address] [place] [address] Donta Mike MD concerns 12/14/2024 Orders Only [facility] [address] [place] [address] Donta Mike MD Abdominal aortic aneurysm (AAA) without rupture, unspecified part (CMS/HCC) (Primary Dx) 12/14/2024 Telephone [facility] [address] [place] [phone] Donta Mike MD INCIDENTAL FINDING 12/06/2024 Telephone [facility] [address] [place] [address] Donta Mike MD Results 11/22/2024 8:45 AM EDT Office Visit [facility] [address] [place] [address] Donta Mike MD Primary hypertension (Primary Dx); Type 2 diabetes mellitus without complication, 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 alf insulin use ([facility]); Mixed hyperlipidemia; Benign paroxysmal positional vertigo due to bilateral vestibular disorder; Epididymitis with no abscess; Difficulty walking; Seborrheic dermatitis; Mass of right side of neck 11/22/2024 Refill [facility] [address] [place] [address] Donta Mike MD 11/22/2024 Travel 11/22/2024 Orders Only [facility] [address] [place] [address] Donta Mike MD 11/20/2024 Refill [facility] [address] [place] [address] Donta Mike MD 2024 Telephone [facility] [address] [place] [address] Donta Mike MD Referral 10/18/2024 Refill [facility] [address] [place] [address] Donta Mike MD from Last 3 Months Family History Medical [...] Info) Description 01/24/2025 9:00 AM EDT Telemedicine [facility] PEDS [address] [place] [address] Donta Mike MD [address] [place] [address] Health Maintenance Due Date Last Done Comments [...] 2 diabetes mellitus without complication, 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 superintendent marine oil terminal insulin use ([facility]) LIPID PANEL, STANDARD Routine 11/28/2024 8:45 AM EDT Type 2 diabetes mellitus without complication, 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 alf insulin use (CMS/HCC) ALBUMIN, RANDOM URINE W/CREATININE Routine 11/28/2024 8:40 AM EDT Type 2 diabetes mellitus without complication, 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 superintendent marine oil terminal insulin use (CMS/HCC) CBC WITH AUTO DIFFERENTIAL Routine 11/28/2024 8:25 AM EDT IRON AND TOTAL IRON BINDING CAPACITY Routine 11/28/2024 8:25 AM EDT BASIC METABOLIC PANEL Routine 11/28/2024 8:25 AM EDT HEPATITIS C AB W/REFL TO HCV RNA, QN, PCR Routine 11/28/2024 8:25 AM EDT Type 2 diabetes mellitus without complication, 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 superintendent marine oil terminal insulin use (CMS/HCC) HIV 1/2 ANTIGEN/ANTIBODY, FOURTH GENERATION W/RFL Routine 11/28/2024 8:25 AM EDT Type 2 diabetes mellitus without complication, 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 superintendent marine oil terminal insulin use (CMS/HCC) POCT GLYCATED HEMOGLOBIN, TOTAL Routine 11/22/2024 8:50 AM EDT Type 2 diabetes mellitus without complication, 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 alf insulin use (CMS/HCC) POCT GLUCOSE Routine 11/22/2024 8:49 AM EDT Type 2 diabetes mellitus without complication, 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 alf insulin use (CMS/HCC) from Last 3 Months Results * CT Soft Tissue Neck w/ Contrast (12/20/2024 7:56 AM EDT) Anatomical Region Laterality Modality Head, Neck Computed Tomogra phy 12/20/2024 7:56 AM EDT Narrative 12/20/2024 8:47 AM EDT [address] [address] [address] Scan Report Signed with Addenda Patient: Javed Kirkpatrick MR#: [id number] : 1960 Acct:[id number] Age/Sex: 64 / M ADM Date: 12/20/24 Loc: HO.CT Attending Dr: Donta Avalos MD Ordering Physician: Donta Mike MD Date of Service: 12/20/24 Procedure(s): CT soft tissue neck w IV con Accession Number(s): [id number] cc: Donta Mike MD Report Number: [id number]: Total DLP = 316.00 mGy-cm ADDENDUM ADDENDUM [...] palatine tonsils, right greater than left side. Sewage Plant Operator spaces, parapharyngeal spaces demonstrated no gross masses. [...] signed by Javed Trinidad MD in OV> 12/20/24843 DD/ 5 TD/TT: 12/20/24815 Carburetor Repairer: Procedure Note Donotcharbelinterpreter, Image - 12/20/[address] [place] [address] [address] Scan Report Signed with Addenda Patient: Javed Kirkpatrick MR#: [id number] : 1960cct:[id number] Age/Sex: 64 / MADM Date: 12/20/24 Loc: HO.CT Attending Dr: Donta Avalos MD Ordering Physician: Donta Mike MD Date of Service: 12/20/24 Procedure(s): CT soft tissue neck w IV con Accession Number(s): [id number] cc: Donta Mike MD Report Number: [id number]: Total DLP = 316.00 mGy-cm ADDENDUM ADDENDUM [...] palatine tonsils, right greater than left side. Sewage Plant Operator spaces, parapharyngeal spaces demonstrated no gross masses. [...] <Electronically signed by Javed Trinidad MDin OV> 12/20/2444 DD/ 0756 TD/TT: 12/20/24 0816 Carburetor Repairer: Donta Avalos MD IMG CT PROCEDURES Edited Result - Final * CT Lung Screening Low dose (12/09/2024 9:21 AM EDT) Anatomical Region Laterality Modality Lung Computed Tomogra phy 12/09/2024 9:21 AM EDT Narrative 12/09/2024 10:02 AM EDT [place] [address] [address] Scan Report Signed Patient: Javed Kirkpatrick MR#: [id number] : 1960 Acct:[id number] Age/Sex: 64 / M ADM Date: 12/09/24 Loc: HO.CT Attending Dr: Nicole Whittington PA-C Ordering Physician: Nicole Whittington PA-C Date of Service: 12/09/24 Procedure(s): CT lung screening Accession Number(s): [id number] cc: Donta Mike MD; Nicole Whittington PA-C Report Number: [id number]: Total DLP = 58.00 mGy-cm EXAMINATION: CT [...] for CT CHEST LOW DOSE CANCER SCREENING ([id number]) can be placed. Electronically signed by: Robb Veronica MD 12/09/2024 09:59 AM EDT Dictated By: Robb Veronica MD Signed By: <Electronically signed by Robb Veronica MD in OV> 12/09/24 0959 DD/ 0 TD/TT: 12/09/24936 Carburetor Repairer: Procedure Note Donotuseinterpreter, Image - 12/09/[address] [place] [address] [address] Scan Report Signed Patient: Javed Kirkpatrick MR#: [id number] : 2Acct:[id number] Age/Sex: 64 / MADM Date: 12/09/24 Loc: HO.CT Attending Dr: Nicole Whittington PA-C Ordering Physician: Nicole Whittington PA-C Date of Service: 12/09/24 Procedure(s): CT lung screening Accession Number(s): [id number] cc: Donta Mike MD; Nicole Whittington PA-C Report Number: [id number]: Total DLP = 58.00 mGy-cm EXAMINATION: CT [...] for CT CHEST LOW DOSE CANCER SCREENING ([id number]) can be placed. Electronically signed by: Robb Veronica MD 12/09/2024 09:59 AM EDT Dictated By: Robb Veronica MD Signed By: <Electronically signed by Robb Veronica MD in OV> 12/09/24 0959 DD/ TD/TT: 12/09/2437 Carburetor Repairer: [facility] External Provider IMG CT PROCEDURES Final Result * TSH W/Reflex to FT4 (11/28/2024 8:45 AM EDT) TSH reflex Free T4 0.66 0.32 - 4.0 uIU/mL [facility] Blood Venous blood specimen / Unknown 11/28/2024 8:45 AM EDT 11/28/2024 2:03 PM EDT Donta Avalos MD LAB BLOOD ORDERABL ES Final Result Performing Organization Address [facility] Co de Phone Number [facility] [address] [place] [address] [phone] * Lipid Panel, Standard (11/28/2024 8:45 AM EDT) Triglycerides 56 <150 mg/dL [facility] Comment:Desirable Triglyceri de: less than 150 mg/dLBorderline High Triglyceride 150-199 mg/dLHigh Triglyceride: 200-499 mg/dLVery High Triglyceride: greater than or equal to 5OO mg/dL Cholesterol 163 <200 mg/dL [facility] Comment:Desirable Cholestero l: less than 200 mg/dLBorderline High Cholesterol: 200-239 mg/dLHigh Cholesterol: greater than 239 mg/dL LDL Cholesterol Calculated 99 <100 mg/dL [facility] Comment:Desirable LDL: less than 100 mg/dLNear Optimal/Above Optimal LDL: 110- 129 mg/dLBorderline High LDL: 130-159 mg/dLHigh LDL: 160-189 mg/dLVery High LDL: greater than or equal to 190 mg/dL HDL Cholesterol 53 >40 mg/dL [facility] Comment:Desirable HDL: great er than 40 mg/dL Note: This HDL assay may give artificially low results in patients with liver disease. Blood Venous blood specimen / Unknown 11/28/2024 8:45 AM EDT 11/28/2024 2:03 PM EDT Donta Avalos MD LAB BLOOD ORDERABL ES Final Result Performing Organization Address [facility] de Phone Number [facility] [address] [place] [phone] * (ABNORMAL) Albumin, Random Urine W/Creatinine (11/28/2024 8:40 AM EDT) Pathologist [facility] Creatinine, Urine 37.40 mg/dL [facility] Microalbumin Urine 32.0 mg/L [facility] Microalbum Creatinine Ratio Ur 85.5(H) <30 ug/mg cr [facility] Comment:Albumin/Creatinine R atio Reference Ranges: Normal: < 30 ug/mg creatinine Microalbuminuria: 30 - 300 ug/mg creatinineClinical Albuminuria: > 300 ug/mg creatinine Urine (Urine, Random) 11/28/2024 8:40 AM EDT 11/28/2024 2:10 PM EDT Donta Avalos MD LAB URINE ORDERABL ES Final Result Performing Organization Address [facility] de Phone Number [facility] [address] [place] [phone] * (ABNORMAL) CBC auto differential (11/28/2024 8:25 AM EDT) Pathologist [facility] White Blood Count 6.2 4.8 - 10.8 X10*3/uL [facility] Red Blood Count 4.51(L) 4.60 - 5.80 X10*6/uL [facility] Hemoglobin 13.1(L) 14.0 - 18.0 g/dl [facility] Hematocrit 39.8(L) 42.0 - 52.0 % [facility] Mean Corpuscular Volume 88.2 80.0 - 98.0 fL [facility] Mean Corpuscular Hemoglobin 29.0 27.0 - 33.0 pg [facility] Mean Corpuscular HGB Conc 32.9 31.0 - 36.0 g/dl [facility] Red Cell Distribution Width 15.2 11.0 - 16.0 % [facility] Platelet Count 214 160 - 400 X10*3/uL [facility] Mean Platelet Volume 12.1 9.4 - 12.4 fL [facility] Neutrophils Percent Auto 41.1(L) 45 - 73 % [facility] Imm Gran Pct Auto 0.3 0.0 - 0.4 % [facility] Lymphocytes Percent Auto 47.0(H) 20 - 40 % [facility] Monocytes Percent Auto 9.2 2 - 11 % [facility] Eosinophils Percent Auto 1.9 0 - 4 % [facility] Basophils Percent Auto 0.5 0 - 2 % [facility] NRBC Pct Auto 0.0 0.0 - 0.2 /100WBC [facility] Neutrophils Absolute Auto 2.6 2.0 - 8.3 x10*3/uL [facility] Imm Gran Abs Auto 0.02 0.00 - 0.03 X10*3/uL [facility] Lymphocytes Absolute Auto 2.9 1.2 - 4.9 X10*3/uL [facility] Monocytes Absolute Auto 0.6 0.1 - 1.2 X10*3/uL [facility] Eosinophils Absolute Auto 0.1 0.0 - 0.4 X10*3/uL [facility] Basophils Absolute Auto 0.0 0.0 - 0.2 X10*3/uL [facility] NRBC Abs Auto 0.000 0.0 - 0.012 X10*3/uL [facility] 11/28/2024 8:25 AM EDT 11/28/2024 2:03 PM EDT us Generic External Data Provider LAB BLOOD ORDERAB LES Final Result [facility] [address] [place] [phone] * Hepatitis C Antibody with Reflex to HCV, RNA, Quantitative, Real-Time PCR (11/28/2024 8:25 AM EDT) Hepatitis C Antibody Nonreactive Nonreactive [facility] Comment:Antibodies to HCV no t detected; does not exclude early acuteHCV infection. Blood Venous blood specimen / Unknown 11/28/2024 8:25 AM EDT 11/28/2024 2:03 PM EDT us Donta Avalos MD LAB BLOOD ORDERABL ES Final Result Performing Organization Address [facility] Co de Phone Number [facility] [address] [place] [phone] * Iron And Total Iron Binding Capacity (11/28/2024 8:25 AM EDT) [facility] Iron 123 45 - 160 mcg/dL [facility] Total Iron Binding Capacity 256 228 - 428 mcg/dL [facility] Percent Iron Saturation 48 15 - 50 % [facility] Unsaturated Iron Binding 133 ug/dL [facility] 11/28/2024 8:25 AM EDT 11/28/2024 2:03 PM EDT us Generic External Data Provider LAB BLOOD ORDERAB LES Final Result Performing Organization Address [facility] Co de Phone Number [facility] [address] [place] [phone] * HIV-1/2 Antigen and Antibodies, Fourth Generation, with Reflexes (11/28/2024 8:25 AM EDT) HIV AB/AG Nonreactive Nonreactive [facility] Comment:HIV-1 p24 Ag and/or HIV-1/HIV-2 Ab not detected.A test result that is nonreactive does not exclude thepossibility of exposure to or infection with HIV-1 and/orHIV-2. Nonreactive results in this assay for individualswith prior exposure to HIV-1 and/or HIV-2 may be due toantigen and antibody levels that are below the limit ofdetection of this assay.The [employer] HIV Ag/Ab Combo assay result andsupplemental assay results should be interpreted inconjunction with the patient's clinical presentation,history and other laboratory results. If the results areinconsistent with clinical evidence, additional testing issuggested to confirm the result. Blood Venous blood specimen / Unknown 11/28/2024 8:25 AM EDT 11/28/2024 2:03 PM EDT us Donta Avalos MD LAB BLOOD ORDERABL ES Final Result Performing Organization Address [facility]/ZIP Co de Phone Number [facility] [address] [place] [phone] * (ABNORMAL) Basic Metabolic Panel (11/28/2024 8:25 AM EDT) Sodium 138 135 - 145 mmol/L [facility] Potassium 3.9 3.3 - 5.1 mmol/L [facility] Chloride 106 96 - 108 mmol/L [facility] Carbon Dioxide 25 22 - 29 mmol/L [facility] Anion Gap 11(L) 12 - 20 [facility] Urea Nitrogen (BUN) 11 9 - 16 mg/dL [facility] Creatinine, Serum 0.76 0.5 - 1.4 mg/dL [facility] Estimated Glomerular Filt Rate >60 [facility] Comment:Chronic Kidney Disea se: Estimated GFR < 60 mL/min/[id number] Kidney Disease: Estimated GFR < 15 mL/min/1.73m2 Glucose 152(H) 60 - 115 mg/dL [facility] Calcium 9.2 8.4 - 10.2 mg/dL [facility] 11/28/2024 8:25 AM EDT 11/28/2024 2:03 PM EDT us Generic External Data Provider LAB BLOOD ORDERAB LES Final Result Performing Organization Address [facility]/ZIP Co de Phone Number [facility] [address] [place] [phone] * (ABNORMAL) POCT HGB A1C (11/22/2024 8:50 AM EDT) Hemoglobin A1C 8.0(A) 4.0 - 5.7 % [employer] Media Lot # [id number] Lot# Expiration Date Blood 11/22/2024 8:50 AM EDT Donta Avalos MD POINT OF CARE TEST ENTER/EDIT ORDERABLES Final Result * POCT Glucose (11/22/2024 8:49 AM EDT) Glucose Blood, POC 145 60 - 200 mg/dL [employer] Lot # [id number] Lot# Expiration Date Blood Capillary blood specimen / Unknown 11/22/2024 8:49 AM EDT Donta Avalos MD POINT OF CARE TEST ENTER/EDIT ORDERABLES Final Result from Last 3 Months Insurance [facility] < [address] [facility] STANDARD Care Teams Operating Room Orderly Relationship Specialty Start Date End Date Donta Mike MD [address] [place] [address] [place] [phone] PCP - General Internal Medicine 08/30/24
--- OUTSIDE RECORDS SUMMARY | 2025-01-12 15:46 | XMS_ITS | Clinical Summary ---
Author Organization [address] [facility] Address [address] [place] [address] Phone Care Team Providers Care Live In Housekeeper Nanny Name Role Phone FloresDonta Stanley Primary Care Provide r Allergies No known active allergies Medications ammonium lactate (AMLACTIN) 12 % cream Apply topically if needed for dry skin. 560 g 2 5 12/09/19 26 Active Encounters Date Type Department Care Team Description 12/08/2024 9:45 AM EDT Office Visit Orthopedic Surgery [place] [phone] [phone] Stanley Mayen DPM Controlled type 2 diabetes [...] Upcoming Encounters Date Type Department Care Team ([facility] st Contact Info) Description 02/13/2025 9:30 AM EDT Office Visit Orthopedic Surgery [facility] [address] [phone] Stanley Mayen DPM [address] [address] Health Maintenance Due Date Last Done Comments [...] Lung Cancer Screening (Low Dose CT) 09/28/2024 12/09/2024 Medicare Annual Wellness Visit 09/28/2024 Social Influencers of Health Screening 09/28/2024 COVID-19 Vaccine ( - 2023-2 5 season) 2025 Influenza Vaccine [...] ID:[id number] Group ID:[id number] Type:Not on file Address: [facility] [address] [phone] Care Teams Live In Housekeeper Nanny Relationship Specialty Start Date End Date Donta Mike [address] [place] [address] PCP - General Internal Medicine 09/28/24
--- OUTSIDE RECORDS SUMMARY | 2025-01-12 15:46 | XMS_ITS | Encounter Summary ---
Author Organization [employer] Address 75 [facility] 7t [place] [address] Care Team Providers Care Linux Devops Engineer Name Role Phone Donta Mike MD Primary Care Prov ider Reason for Visit * Reason Onset Date Comments Med Refill 09/20/2024 Encounter Details Date Type Department Care Team (Late st Contact Info) Description 09/20/2024 Telephone [facility] [address] [place] [address] Donta Mike MD [address] [place] [phone] Med Refill Social History Tobacco Use Types [...] Author Very difficult 09/26/2024 3:19 PM EDT Lay Avalos * Over the last 2 weeks, [...] 01/24/2025 9:00 AM EDT Telemedicine [facility] [address] [place] [address] Donta Mike MD [address] [place] [address] documented as of this encounter Visit Diagnoses Not on filedocumented in this encounter Care Teams Linux Devops Engineer Relationship Specialty Start Date End Date Donta Mike MD [address] [place] [address] PCP - General Internal Medicine 08/30/24 documented as of this encounter
--- OUTSIDE RECORDS SUMMARY | 2025-01-12 15:46 | XMS_ITS | Encounter Summary ---
Author Organization [employer] Address 75 [facility] 7 [place] [address] Care Team Providers Care Non Acoustic Operator Name Role Phone Donta Mike MD Primary Care Prov ider Reason for Visit * Reason Onset Date Comments Durable Medical Equipment 10/11/2024 Encounter Details Date Type Department Care Team (Late st Contact Info) Description 10/11/2024 Telephone [facility] [address] [place], [place] [phone] Donta Mike MD [address] [place] [address] Durable Medical Equipment Social History Tobacco Use [...] please provide DX BP machine queued for [facility] pharmacy TC from pt requesting DME order for a cane , blood pressure kit to be sent too [facility]. Contact pt at [phone] * Telephone Encounter - Anny Erwin - 10/11/2024 8:33 AM EDT TC from pt requesting DME order for a cane , blood pressure kit to be sent too [facility]. Contact pt at [phone] documented in this encounter Plan of Treatment Upcoming Encounters Date Type Department Care Team (Late st Contact Info) Description 01/24/2025 9:00 AM EDT Telemedicine [facility] MED & PEDS [address] [place], [place] [phone] Donta Mike MD [address] [place], [place] [phone] documented as of this encounter Visit Diagnoses Not on filedocumented in this encounter Additional Health Concerns Assessment Noted Time PHQ-9 Depression Total Score: 17 09/26/ 025 3:19 PM EDT documented as of this encounter Care Teams Non Acoustic Operator Relationship Specialty Start Date End Date Donta Mike MD [address] [place] [phone] PCP - General Internal Medicine 08/30/24 documented as of this encounter
--- OUTSIDE RECORDS SUMMARY | 2025-01-12 15:46 | XMS_ITS | Encounter Summary ---
Author Organization [employer] Address 75 [facility] 7t [place] [address] Care Team Providers Care Forklift Truck Mechanic Name Role Phone Donta Mike MD Primary Care Prov ider Reason for Visit * Reason Onset Date Comments Medication Question 09/26/2024 Encounter Details Date Type Department Care Team (Late st Contact Info) Description 09/26/2024 Telephone [facility] MEDICINE [address] [place] [address] Donta Mike MD [address] [place], [place] [phone] Medication Question Social History Tobacco Use Types [...] Nearly every day 09/26/2024 3:19 PM EDT Ablert Avalos * Moving or speaking so slowly [...] to further discuss. Please contact pt at [phone]. (Fijian Speaker) documented in this encounter Plan of Treatment Upcoming Encounters Date Type Department Care Team (Late st Contact Info) Description 01/24/2025 9:00 AM EDT Telemedicine [facility] [address] [place] [address] Donta Mike MD [address] [place] [address] documented as of this encounter Visit Diagnoses Not on filedocumented in this encounter Additional Health Concerns Assessment Noted Time PHQ-9 Depression Total Score: 17 025 3:19 PM EDT documented as of this encounter Care Teams Forklift Truck Mechanic Relationship Specialty Start Date End Date Donta Mike MD [address] [place] [address] PCP - General Internal Medicine 08/30/24 documented as of this encounter
--- OUTSIDE RECORDS SUMMARY | 2025-01-12 15:46 | XMS_ITS | Encounter Summary ---
Author Organization [employer] Address [address] [facility] [address] [place] [address] Care Team Providers Care Machine Or Machinery Mechanic Name Role Phone Donta Mike MD Primary Care Prov ider Reason for Visit * Reason Onset Date Comments Call Back Request 09/16/2024 Encounter Details Date Type Department Care Team (Late st Contact Info) Description 09/16/2024 Telephone [facility] [address] [place] [address] Donta Mike MD [address] [place], [place] [phone] Call Back Request Social History Tobacco Use [...] 1:31 PM EDT TC to patient via rib chopper. Patient stated he has recently moved her from [place], [place] and ran out of his medication a few days ago. One of those medications was Metoprolol. Patient denies chest pain currently but does admit to chest pain last week, and again last night. Patient also has a history of open heart surgery. This is a new patient. NO notes or med list available. Patient stated he used [facility] in [place], [place]. RN will call pharmacy and do a med rec. Patient alsostated he was recently seen in [facility], so this RN will obtain ER notes. * Telephone Encounter - Radha Ventura - 09/16/2024 11:40 AM EDT Tc from pt reporting was scheduled for telephone visit with PCP and never received call from no one. 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 Please return call [phone] documented in this encounter Plan of Treatment Upcoming Encounters Date Type Department Care Team (Late st Contact Info) Description 01/24/2025 9:00 AM EDT Telemedicine [facility] [address] [place] [address] Donta Mike MD [address] [place] [address] documented as of this encounter Visit Diagnoses Not on filedocumented in this encounter Care Teams Machine Or Machinery Mechanic Relationship Specialty Start Date End Date Donta Mike MD [address] [place] [address] PCP - General Internal Medicine 08/30/24 documented as of this encounter
--- NOTE | ~2025-01-30 | CT_ITS ---
EXAMINATION: CT-guided right neck mass biopsy. CLINICAL INDICATION: Right neck mass deep to the sternomastoid muscle. COMPARISON: CT neck 12/20/2024. TECHNIQUE: Following explaining CT fluoroscopy guided right neck mass biopsy procedure, benefits and risk a written consent was obtained. Patient was placed supine on CT fluoroscopy table with axial imaging obtained through the anterior neck. An optimal slice was selected with the mass was the greatest visualized and skin lead markers were placed and repeat imaging was obtained. An optimal lead marker was selected and marked on the skin. The marked site was cleaned and draped in usual sterile manner with 2% chlorhexidine solution. 1% lidocaine was injected puncture site. A 20-gauge guide needle was advanced from the skin to the upper segment of the right neck mass deep to the sternomastoid muscle. Coaxially a 3 pass core biopsy of the right neck masses obtained. Repeat CT imaging was performed post biopsy. There are no immediate complications.. FINDINGS: On preliminary CT imaging there is heterogenous lobulated right neck mass deep to right sternomastoid muscle level 3. It measures 3.1 x 2.3 x 3.6 cm. There are additional several lymph nodes seen in the right neck with the largest measuring 7 mm on axial imaging 62/3. A 3 pass core biopsy of right neck mass was obtained. 3 samples collected second sent to lab in colon solution. CT/CT biopsy muscle IMPRESSION: Right neck mass with several lymph nodes. Successful CT-guided right neck mass biopsy performed. Electronically signed by: Miguel Bermudez MD 01/31/2025 07:05 AM EDT
--- NOTE | ~2025-01-30 | CT_ITS ---
EXAMINATION: CT-guided right neck mass biopsy. CLINICAL INDICATION: Right neck mass deep to the sternomastoid muscle. COMPARISON: CT neck 12/20/2024. TECHNIQUE: Following explaining CT fluoroscopy guided right neck mass biopsy procedure, benefits and risk a written consent was obtained. Patient was placed supine on CT fluoroscopy table with axial imaging obtained through the anterior neck. An optimal slice was selected with the mass was the greatest visualized and skin lead markers were placed and repeat imaging was obtained. An optimal lead marker was selected and marked on the skin. The marked site was cleaned and draped in usual sterile manner with 2% chlorhexidine solution. 1% lidocaine was injected puncture site. A 20-gauge guide needle was advanced from the skin to the upper segment of the right neck mass deep to the sternomastoid muscle. Coaxially a 3 pass core biopsy of the right neck masses obtained. Repeat CT imaging was performed post biopsy. There are no immediate complications.. FINDINGS: On preliminary CT imaging there is heterogenous lobulated right neck mass deep to right sternomastoid muscle level 3. It measures 3.1 x 2.3 x 3.6 cm. There are additional several lymph nodes seen in the right neck with the largest measuring 7 mm on axial imaging 62/3. A 3 pass core biopsy of right neck mass was obtained. 3 samples collected second sent to lab in colon solution. CT/CT guided needle placement IMPRESSION: Right neck mass with several lymph nodes. Successful CT-guided right neck mass biopsy performed. Electronically signed by: Miguel Bermudez MD 01/31/2025 07:05 AM EDT
[2025-01-30 09:15] LABS: MANUAL DIFF FLAG NO
[2025-01-30 09:18] VITALS: BMI 24.1
[2025-01-30 09:20] LABS: Hematocrit 42.0 % (42.0-52.0); Hemoglobin 14.0 g/dl (14.0-18.0); Imm Gran Abs Auto 0.05 X10*3/uL (0.00-0.03); Imm Gran Pct Auto 0.7 % (0.0-0.4); Lymphocytes Absolute Auto 2.5 X10*3/uL (1.2-4.9); Mean Corpuscular HGB Conc 33.3 g/dl (31.0-36.0); Mean Corpuscular Hemoglobin 30.4 pg (27.0-33.0); Mean Corpuscular Volume 91.1 fL (80.0-98.0); NRBC Abs Auto 0.000 X10*3/uL (0.0-0.012); NRBC Pct Auto 0.0 /100WBC (0.0-0.2); Platelet Count 212 X10*3/uL (160-400); Red Blood Count 4.61 X10*6/uL (4.60-5.80); White Blood Count 7.0 X10*3/uL (4.8-10.8)
[2025-01-30 09:31] LABS: INTERNATIONAL NORM RATIO 1.0 (0.9-1.1); Prothrombin Time 11.3 SEC (10.9-12.4)
[2025-01-30 09:41] VITALS: BP 116/70; PULSE 49; RESP 15; TEMP 36.2; O2SAT 99
[2025-01-30 09:49] LABS: Glucose, Whole Blood 108 mg/dL (60-115)
[2025-01-30 12:08] VITALS: BP 124/69; PULSE 50; RESP 100
[2025-01-30 12:30] VITALS: BP 127/70; PULSE 56; RESP 14; TEMP 36.9; O2SAT 99
[2025-01-30 13:00] VITALS: BP 124/69; PULSE 50; RESP 14; O2SAT 100
[2025-01-30 13:30] VITALS: BP 128/77; PULSE 52; RESP 15; O2SAT 100
[2025-01-30 14:00] VITALS: BP 136/68; PULSE 54; RESP 16; TEMP 36.6; O2SAT 100
== END 2025-01-30 14:00 | disposition home or self-care (01) ==
PROVIDERS: Radiology Diagnostic Radiology; PCP Internal Medicine; Visit Provider Student in an Organized Health Care Education/Training Program
DX: C77.0 Secondary and unspecified malignant neoplasm of lymph nodes of head, face and neck (principal); C80.1 Malignant (primary) neoplasm, unspecified; Z79.84 Long term (current) use of oral hypoglycemic drugs; Z79.899 Other long term (current) drug therapy
CPT/HCPCS: 20206; 36415; 77012; 82947; 85025; 85610; 86850; 86900; 86901; 88305; 88341; 88342; J2003; J2250; J3010

== ENCOUNTER → 2025-01-30 12:00 | Outpatient (BNV) | payer OTHER, SELFPAY | PROVIDERS: PCP Internal Medicine; Visit Provider Radiology Diagnostic Radiology | DX: R22.1 Localized swelling, mass and lump, neck (principal) | CPT/HCPCS: 20206; 77012 ==

== ENCOUNTER 2025-02-03 09:04 | Outpatient (AMB) | payer OTHER, SELFPAY ==
--- NOTE | 2025-02-03 09:13 | A.OFFVIS_ITS ---
Vital Signs 02/03/25 09:16 Height 6 ft 4 in Weight 195 lb BMI 23.7 BP 95/58 L Blood Pressure Location Lt brachial Position Sitting Pulse 70 Pulse Oximetry (%) 98 Oxygen Delivery Method Room Air Intake Visit Reasons: 2 mo f/u Intake Note: Patient new consult for pre Colonoscopy screening. Last Colonoscopy was with Dr. Martin on 2019. Patient cc: swallowing difficulties with sticky food as rice. Denies any other GI issues. Salesperson Men'S Hats Required: Yes Accompanied by: Self / Same As Patient Allergies No Known Allergies Allergy (Verified 02/03/25 09:14) Medication List - Last Reconciled 02/03/25 by Alysha Leigh CNP aspirin 81 mg PO DAILY atorvastatin (Lipitor) 80 mg PO BEDTIME linaclotide 145 mcg PO DAILY lisinopril 20 mg PO DAILY metformin 1,000 mg PO DAILY metoprolol succinate ER 25 mg PO DAILY pantoprazole 40 mg PO DAILY sertraline 50 mg PO DAILY sitagliptin phosphate (Januvia) 50 mg PO DAILY zolpidem ER 12.5 mg PO BEDTIME PRN HPI HPI 2 mo f/u: Details: Patient is a 64-year-old male with PMH of MDD, HTN, HLD, ?A-fib, diabetes and GERD. F/u post-colonoscopy screening visit (last appt 11-24-24); persistent chronic co nstipation and acid reflux. Pt continues to experience marked constipation with infrequent, hard, large stools, requiring straining. Has not been taking Linzess since prior GI provider; unable to access Rx after last visit despite attempt to refill. Used a ?red pill? (unspecified laxative, ~3 doses) from family?no efficacy. Reports left lower abd pain and nausea with constipation (no vomiting). Mildly improves with increased hydration/fiber, but symptoms persist?worse with heat/dehydration. Acid reflux occurs in AM, post-breakfast, and is food-triggered (not daily); notable triggers: onions, strong coffee. Uses PPI only prn, which helps but not fully controlled. Pt is compliant with hydration, fiber, and healthy diet; limited response due to lack of access to Linzess. Minimal gas passage, no reported melena/hematochezia. No reported hospitalizations, UC/ER visits, or flares. [facility] Medical History (Updated 01/30/25 @ 09:21 by Kiersten Shanks RN) IBS (irritable bowel syndrome) Acid reflux Colon cancer screening Type 2 diabetes mellitus Hypertension CAD (coronary artery disease) Nicotine dependence, cigarettes, uncomplicated Surgical History History of esophagogastroduodenoscopy (EGD) Hx of colonoscopy History of lumbar surgery History of repair of left rotator cuff History of coronary artery bypass graft x 3 Family History Mother Coronary arteriosclerosis Diabetes HTN (hypertension) Father Diabetes Prostate CA Social History Household Members: Family Alcohol intake: never Patient Tobacco Use Status: Current everyday Tobacco user Tobacco use type: Cigarette Cigarette Packs Per Day: 0.5 Cigarettes Per Day: 21.7 Years Smoked: (onset 26yo, x 38yrs, max 1ppd, now 1/2ppd, 25pyh) Review of Systems Const Reports as per HPI ENT Reports as per HPI Card Reports as per HPI Resp Reports as per HPI GI Reports as per HPI Reports as per HPI Physical Exam Vital Signs: Last Vital Signs Pulse 70 02/03/25 09:16 BP 95/58 L 02/03/25 09:16 Pulse Ox 98 02/03/25 09:16 Oxygen Delivery Method Room Air 02/03/25 09:16 BMI result Body Mass Index 23.7 Const General: healthy appearing, no acute distress and well developed Nutritional Appearance: average body habitus Orientation/consciousness: patient oriented x3 HEENT Head: Yes normal to inspection, Yes normocephalic and Yes atraumatic Face and sinus: Yes normal facial exam Eyes General: appearance normal, both eyes and all related structures Neck Neck: Yes normal visual inspection Resp Effort & Inspection: normal respiratory effort, able to speak in complete sentences, no tracheal deviation and symmetric chest movement Cardio Jugular venous distension: no JVD GI Inspection: Yes normal to inspection and No distended Palpation (GI): Soft to palpation, not firm, nontender and No hepatosplenomegaly present Auscultation: normal bowel sounds Neuro General: patient oriented x3 Gait exam (Neuro): Normal gait present Psych Appearance: grossly normal Mental Status: mental status grossly normal Speech and movement: Normal speech and movement present Affect: normal affect Attitude: cooperative Thought process: Normal thought process present Thought content: Normal thought content present Insight: Good insight present (Psych) Judgement: Good judgement present (Psych) Assessment & Plan Assessment & Plan (1) Acid reflux: Code(s): K21.9 - Gastro-esophageal reflux disease without esophagitis Category: Medical Qualifiers: Esophagitis presence: esophagitis presence not specified Qualified Code(s): K21.9 - Gastro-esophageal reflux disease without esophagitis Plan: - Inadequate control due to inconsistent med use and multiple triggers. - Additional Testing: None indicated at present. - Medications: - Continue pantoprazole 40 mg qd; instruct pt to take daily, AM, on empty stomach, wait >=0 min before eating. - Lifestyle Recommendations: - Avoid dietary triggers (coffee, onions), elevate HOB if sx at night, smaller meals; specific verbal/fiber/GERD education given. - Referrals / Coordination of Care: - None new; pending procedural eval. - F/U Plan: - Assess response to daily PPI at next visit. (2) IBS (irritable bowel syndrome): Code(s): K58.9 - Irritable bowel syndrome, unspecified Category: Medical Qualifiers: Irritable bowel syndrome type: with constipation Qualified Code(s): K58.1 - Irritable bowel syndrome with constipation Plan: Sx persistent due to medication access barrier; requires re-initiation of prior Rx and additional softening agent to avoid impaction/hemorrhoids. 11/09/24 CBC:WNL ? no anemia, Renal panel: WNL and Iron studies. Additional Testing: None at this stage (recent labs WNL, scope soon pending). Medications: - Linzess 145 mcg qd (resend Rx to [facility], confirm pharmacy). - Docusate sodium 100 mg po bid (Rx sent; stool softener as adjunct). Lifestyle Recommendations: - Continue high-fiber diet (fruits, veg), >8 cups water/day, activity as tolerated, minimize heat-induced dehydration -Clarified importance of prompt contact with office/pharmacy for Rx access problems. Referrals / Coordination of Care: - Resend colonoscopy/endoscopy prep scripts (x2), ensure pharmacy communication. F/U Plan: - RTC after upper endo/colonoscopy for review; sooner prn if symptoms severe or no BMs >5 days. Symptom diary encouraged. Plan Follow-up after endoscopy or sooner as needed Time: I spent a total of 30 minutes on the date of encounter which includes: Preparing to see the patient (reviewed previous documentation, test results and medical history) Performing a medically appropriate exam and/or evaluation Ordering medications, tests, and procedures Documenting clinical information in the health record Medications: New docusate sodium Take one tablet at bedtime 100 mg PO BEDTIME 90 caps 1RF constipation bisacodyl Take per colonoscopy instructions 5 mg PO ONCE 4 tabs 0RF polyethylene glycol 3350 (Miralax) per colonoscopy prep instructions 238 grams PO ONCE 238 grams 0RF Refilled linaclotide Take one tablet once daily 145 mcg PO DAILY 30 caps 0RF Coding Level of Care Code Established Pt New Pt Level 3 (72960) Patient Type Established Diagnoses Gastroesophageal reflux disease, 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 esophagitis present K21.9 Esophagitis presence: esophagitis presence not specified Irritable bowel syndrome with constipation K58.1 Irritable bowel syndrome type: with constipation
[2025-02-03 09:16] VITALS: BP 95/58; PULSE 70; O2SAT 98; BMI 23.7
--- OUTSIDE RECORDS SUMMARY | 2025-02-03 09:42 | XMS_ITS | Encounter Summary ---
Author Organization [employer] Address [address] [facility] 7t [place] [address] Care Team Providers Care Ovens Supervisor Name Role Phone Donta Mike MD Primary Care Prov ider Reason for Visit * Reason Comments Med Change Request Encounter Details Date Type Department Care Team ([facility] st Contact Info) Description 11/22/2024 Refill [facility] [address] [place], [place] [phone] Donta Mike MD [address] [place] [address] Social History Tobacco Use Types Packs/Day Years [...] Description 02/08/2025 2:45 PM EDT Office Visit [facility] MED [facility]EDS [address] [place] [address] Wang Lynch CNP [address] [place] [address] documented as of this encounter Visit Diagnoses Not on filedocumented in this encounter Additional Health Concerns Assessment Noted Time PHQ-9 Depression Total Score: 17 025 3:19 PM EDT documented as of this encounter Care Teams Ovens Supervisor Relationship Specialty Start Date End Date Donta Mike MD [address] [place] [address] PCP - General Internal Medicine 08/30/24 documented as of this encounter
--- OUTSIDE RECORDS SUMMARY | 2025-02-03 09:43 | XMS_ITS | Encounter Summary ---
Author Organization [employer] Address 75 [facility] 7t [place] [address] Care Team Providers Care Marketing Strategy Manager Name Role Phone Donta Mike MD Primary Care Prov ider Reason for Visit * Reason Onset Date Comments Medication Question 09/26/2024 Encounter Details Date Type Department Care Team (Late st Contact Info) Description 09/26/2024 Telephone [facility] MEDICINE [address] [place] [address] Donta Mike MD [address] [place], [place] [phone] Medication Question Social History Tobacco Use Types [...] half the days 09/26/2024 3:19 PM EDT lAbert Mcclendon * Feeling down, depressed, or hopeless [...] to further discuss. Please contact pt at [phone]. (Portuguese Speaker) documented in this encounter Plan of Treatment Upcoming Encounters Date Type Department Care Team (Late st Contact Info) Description 02/08/2025 2:45 PM EDT Office Visit [facility] MED & PEDS [address] [place], [place] [phone] Wang Lynch, RAYNA [address] [place], [place] [phone] documented as of this encounter Visit Diagnoses Not on filedocumented in this encounter Additional Health Concerns Assessment Noted Time PHQ-9 Depression Total Score: 17 025 3:19 PM EDT documented as of this encounter Care Teams Marketing Strategy Manager Relationship Specialty Start Date End Date Donta Mike MD [address] [place], [place] [phone] PCP - General Internal Medicine 08/30/24 documented as of this encounter
--- OUTSIDE RECORDS SUMMARY | 2025-02-03 09:43 | XMS_ITS | Encounter Summary ---
Author Organization [employer] Address 75 [facility] 7t [place] [address] Care Team Providers Care Airport Maintenance Laborer Name Role Phone Donta Mike MD Primary Care Prov ider Reason for Visit * Reason Onset Date Comments Call Back Request 09/16/2024 Encounter Details Date Type Department Care Team (Late st Contact Info) Description 09/16/2024 Telephone [facility] MEDICINE [address] [place] [address] Donta Mike MD [address] [place], [place] [phone] Call Back Request Social History Tobacco Use [...] 1:31 PM EDT TC to patient via financial director. Patient stated he has recently moved her from [place], [place] and ran out of his medication a few days ago. One of those medications was Metoprolol. Patient denies chest pain currently but does admit to chest pain last week, and again last night. Patient also has a history of open heart surgery. This is a new patient. NO notes or med list available. Patient stated he used [facility] in [place], [place]. RN will call pharmacy and do a med rec. Patient alsostated he was recently seen in [facility], so this RN will obtain ER notes. * Telephone Encounter - Radha Ventura - 09/16/2024 11:40 AM EDT Tc from pt reporting was scheduled for telephone visit with PCP and never received call from no one. Pt also inform he's been up since 8am waiting recreational sports director. Please return call [phone] documented in this encounter Plan of Treatment Upcoming Encounters Date Type Department Care Team (Late st Contact Info) Description 02/08/2025 2:45 PM EDT Office Visit [facility] MED [facility]EDS [address] [place] [address] Wang Lynch, RAYNA 505 [place] [address] documented as of this encounter Visit Diagnoses Not on filedocumented in this encounter Care Teams Airport Maintenance Laborer Relationship Specialty Start Date End Date Donta Mike MD [address] [place] [address] PCP - General Internal Medicine 08/30/24 documented as of this encounter
--- OUTSIDE RECORDS SUMMARY | 2025-02-03 09:43 | XMS_ITS | Encounter Summary ---
Author Organization [employer] Address [address] [facility] [address] [place] [address] Care Team Providers Care Hand Tier Name Role Phone Donta Mike MD Primary Care Prov ider Encounter Details Date Type Department Care Team (Late st Contact Info) Description 01/30/2025 Orders Only GENERIC EXTERNAL DATA DEPARTMENT Provider, Generic External Data Social History Tobacco Use Types Packs/Day Years [...] Description 02/08/2025 2:45 PM EDT Office Visit [facility] MED & PEDS 505 [place] [address] Wang Lynch, QUALITY CONTROL AUDITOR [address] [place] [address] documented as of this encounter Procedures Procedure Name Priority Date/Time Associated Diagnosis Comments GROSS AND MICROSCOPIC LEVEL 4 Routine 01/30/2025 12:[address] GUIDED PERCUTANEOUS BIOPSY MUSCLE Routine 01/30/2025 12:[address] GUIDED IMAGING FOR NEEDLE PLACEMENT Routine 01/30/2025 12:00 PM EDT GLUCOSE, WHOLE BLOOD Routine 01/30/2025 9:40 AM EDT CBC WITH AUTO DIFFERENTIAL Routine 01/30/2025 9:10 AM EDT PROTHROMBIN TIME-INR Routine 01/30/2025 9:10 AM EDT TYPE AND SCREEN Routine 01/30/2025 9:10 AM EDT documented in this encounter Results * Gross and Microscopic Level 4 (01/30/2025 12:00 PM EDT) 01/30/2025 12:0 0 PM EDT 01/30/2025 1:30 PM EDT Narrative [facility] - 02/02/2025 5:12 PM EDT ----- ------- Name: Javed Kirkpatrick Age/Sex: 64/M : 1960 Unit#: [id number] Attend Dr: John Avalos DO Re01/30/25 [place] [facility] [place] [facility] Disch: ----- ------- SPEC : [id number] RECD: 01/30/25 STATUS: RENAN ORELLANA NUM: [id number] REGGIE: 01/30/25-[address] [facility] [address]: Miguel Bermudez MD ENTERED: 01/30/25 SP TYPE: Surgical OTHR DR: Donta Mike MD, Daniel H DO ORDERED: Gross Micro L4, IHC, Add. immunos/2, p16, p40, p63 Addendum Addendum 1 Entered: 02/02/25 The tumor cells are non-immunoreactive with p16 (appropriate positive control). No change is made to the diagnosis. Addendum Signed (signature on file) Linden Maher MD 02/02/251711 ----- ------- Diagnosis Lymph node, right neck, core biopsy: Metastatic squamous cell carcinoma, poorly differentiated, involving lymphoid tissue; benign skeletal muscle and fibroadipose tissue. See description and comment. Comment: p16 immunostain results will be addended. Clinical History Lymph node in right neck Microscopic Description Microscopic sections reviewed. By immunohistochemistry, the tumor cells are reactive with p40. Material Received Lymph node in right neck Gross Description Received in formalin labeled lymph node in right neck are cylindrical portions of pink white soft tissue measuring 0.3-0.9 cm in length all with a diameter of 0.05 cm which are wrapped in lens paper and entirely submitted for microscopic examination, 4 pieces in cassette A1 and 3 pieces in cassette A2. ([facility]) This case was reviewed intradepartmentally; results discussed with Dr. Avalos on 02/02/2025 CONTINUED ON NEXT PAGE ----- ------- Name: Hannah FitzgeraldJaved Age/Sex: 64/M : 1960 Unit#: [id number] Attend Dr: John Avalos DO Re01/30/25 [place] [facility] [place]: [facility] Disch: ----- ------- SPEC : [id number] RECD: 01/30/25-1329 STATUS: RENAN ORELLANA NUM: [id number] REGGIE: 01/30/25-[address]: Miguel Bermudez MD ENTERED: 01/30/25-1333 SP TYPE: Surgical OTHR DR: Donta Mike MD, Daniel H DO ORDERED: Gross Micro L4, IHC, Add. immunos/2, p16, p40, p63 Gross Description (Continued) Special studies ordered and performed: Immunostains for p40 IHC S/NG Disclaimer NOTE: Unless otherwise stated, all tissue is formalin-fixed and paraffin-embedded. Some or all of the immunohistochemical tests reported herein may have been developed and their performance characteristics determined by [facility]. They have not been cleared or approved by the U.S. Food and Drug Administration (FDA). However, the FDA has determined that such clearance or approval is not necessary. This laboratory is certified under the Clinical Laboratory Improvement Amendments of 1988 (CLIA) as qualified to perform high complexity clinical laboratory testing. Copies To: Donta Mike MD [address] [address] John Avalos DO [facility] [address] [address] Miguel Bermudez MD [address] [place] [phone] ----- ------- Signed (signature on file) Linden Maher MD 02/02/25 0924 ----- ------- END OF REPORT us Generic External Data Provider LAB CYTOLOGY DANIELA SHELL Final Result [facility] [address] [place] [phone] * CT Guided Percutaneous Biopsy Muscle (01/30/2025 12:00 PM EDT) Anatomical Region Laterality Modality Body Computed Tomogra phy 01/30/2025 12:0 0 PM EDT Narrative 01/31/2025 7:08 AM EDT [address] [address] [address] Scan Report Signed Patient: Javed Kirkpatrick MR#: [id number] : 1960 Acct:[id number] Age/Sex: 64 / M ADM Date: 01/30/25 Loc: [facility] Attending Dr: John Avalos DO Ordering Physician: John Avalos DO Date of Service: 01/30/25 Procedure(s): CT biopsy muscle Accession Number(s): [id number] cc: Donta Mike MD; John Avalos DO Report Number: [id number]: Total DLP = 340.00 mGy-cm Reason for Exam: RT NECK MASS EXAMINATION: CT-guided right neck mass biopsy. CLINICAL INDICATION: Right neck mass deep to the sternomastoid muscle. COMPARISON: CT neck 12/20/2024. TECHNIQUE: Following explaining CT fluoroscopy guided right neck mass biopsy procedure, benefits and risk a written consent was obtained. Patient was placed supine on CT fluoroscopy table with axial imaging obtained through the anterior neck. An optimal slice was selected with the mass was the greatest visualized and skin lead markers were placed and repeat imaging was obtained. An optimal lead marker was selected and marked on the skin. The marked site was cleaned and draped in usual sterile manner with 2% chlorhexidine solution. 1% lidocaine was injected puncture site. A 20-gauge guide needle was advanced from the skin to the upper segment of the right neck mass deep to the sternomastoid muscle. Coaxially a 3 pass core biopsy of the right neck masses obtained. Repeat CT imaging was performed post biopsy. There are no immediate complications.. FINDINGS: On preliminary CT imaging there is heterogenous lobulated right neck mass deep to right sternomastoid muscle level 3. It measures 3.1 x 2.3 x 3.6 cm. There are additional several lymph nodes seen in the right neck with the largest measuring 7 mm on axial imaging 62/3. A 3 pass core biopsy of right neck mass was obtained. 3 samples collected second sent to lab in colon solution. CT/CT biopsy muscle IMPRESSION: Right neck mass with several lymph nodes. Successful CT-guided right neck mass biopsy performed. Electronically signed by: Miguel Bermudez MD 01/31/2025 07:05 AM EDT Dictated By: Miguel Bermudez MD Signed By: <Electronically signed by Miguel Bermudez MD in OV> 01/31/25 0705 DD/ 1200 TD/TT: 01/30/25 1323 Banking Services Clerk: [facility] Procedure Note Donotuseinterpreter, Image - 01/31/[address] [place] [address] [address] Scan Report Signed Patient: Javed Kirkpatrick MR#: [id number] : 2Acct:[id number] Age/Sex: 64 / MADM Date: 01/30/25 Loc: .[facility] Attending Dr: John Avalos DO Ordering Physician: John Avalos DO Date of Service: 01/30/25 Procedure(s): CT biopsy muscle Accession Number(s): [id number] cc: Donta Mike MD; John Avalos DO Report Number: [id number]: Total DLP = 340.00 mGy-cm Reason for Exam: RT NECK MASS EXAMINATION: CT-guided right neck mass biopsy. CLINICAL INDICATION: Right neck mass deep to the sternomastoid muscle. COMPARISON: CT neck 12/20/2024. TECHNIQUE: Following explaining CT fluoroscopy guided right neck mass biopsy procedure, benefits and risk a written consent was obtained. Patient was placed supine on CT fluoroscopy table with axial imaging obtained through the anterior neck. An optimal slice was selected with the mass was the greatest visualized and skin lead markers were placed and repeat imaging was obtained. An optimal lead marker was selected and marked on the skin. The marked site was cleaned and draped in usual sterile manner with 2% chlorhexidine solution. 1% lidocaine was injected puncture site. A 20-gauge guide needle was advanced from the skin to the upper segment of the right neck mass deep to the sternomastoid muscle. Coaxially a 3 pass core biopsy of the right neck masses obtained. Repeat CT imaging was performed post biopsy. There are no immediate complications.. FINDINGS: On preliminary CT imaging there is heterogenous lobulated right neck mass deep to right sternomastoid muscle level 3. It measures 3.1 x 2.3 x 3.6 cm. There are additional several lymph nodes seen in the right neck with the largest measuring 7 mm on axial imaging 62/3. A 3 pass core biopsy of right neck mass was obtained. 3 samples collected second sent to lab in colon solution. CT/CT biopsy muscle IMPRESSION: Right neck mass with several lymph nodes. Successful CT-guided right neck mass biopsy performed. Electronically signed by: Miguel Bermudez MD 01/31/2025 07:05 AM EDT Dictated By: Miguel Bermudez MD Signed By: <Electronically signed by Miguel Bermudez MD in OV> 01/31/25 0705 DD/ 1200 TD/TT: 01/30/25 1323 Banking Services Clerk: ANDREW [facility] External Provider IMG CT PROCEDURES Final Result * CT Guided Imaging for Needle Placement (01/30/2025 12:00 PM EDT) Anatomical Region Laterality Modality Computed Tomogra phy 01/30/2025 12:0 0 PM EDT Narrative 01/31/2025 7:08 AM EDT [address] [address] [address] Scan Report Signed Patient: Javed Kirkpatrick MR#: [id number] : 1960 Acct:[id number] Age/Sex: 64 / M ADM Date: 01/30/25 Loc: [facility] Attending Dr: John Avalos DO Ordering Physician: John Avaols DO Date of Service: 01/30/25 Procedure(s): CT guided needle placement Accession Number(s): [id number] cc: Donta Mike MD; John Avalos DO Report Number: [id number]: Total DLP = 340.00 mGy-cm Reason for Exam: RT NECK MASS CORE BX EXAMINATION: CT-guided right neck mass biopsy. CLINICAL INDICATION: Right neck mass deep to the sternomastoid muscle. COMPARISON: CT neck 12/20/2024. TECHNIQUE: Following explaining CT fluoroscopy guided right neck mass biopsy procedure, benefits and risk a written consent was obtained. Patient was placed supine on CT fluoroscopy table with axial imaging obtained through the anterior neck. An optimal slice was selected with the mass was the greatest visualized and skin lead markers were placed and repeat imaging was obtained. An optimal lead marker was selected and marked on the skin. The marked site was cleaned and draped in usual sterile manner with 2% chlorhexidine solution. 1% lidocaine was injected puncture site. A 20-gauge guide needle was advanced from the skin to the upper segment of the right neck mass deep to the sternomastoid muscle. Coaxially a 3 pass core biopsy of the right neck masses obtained. Repeat CT imaging was performed post biopsy. There are no immediate complications.. FINDINGS: On preliminary CT imaging there is heterogenous lobulated right neck mass deep to right sternomastoid muscle level 3. It measures 3.1 x 2.3 x 3.6 cm. There are additional several lymph nodes seen in the right neck with the largest measuring 7 mm on axial imaging 62/3. A 3 pass core biopsy of right neck mass was obtained. 3 samples collected second sent to lab in colon solution. CT/CT guided needle placement IMPRESSION: Right neck mass with several lymph nodes. Successful CT-guided right neck mass biopsy performed. Electronically signed by: Miguel Bermudez MD 01/31/2025 07:05 AM EDT Dictated By: Miguel Bermudez MD Signed By: <Electronically signed by Miguel Bermudez MD in OV> 01/31/25 0705 DD/ 1200 TD/TT: 01/30/25 1323 Banking Services Clerk: ANDREW Procedure Note Donotuseinterpreter, Image - 01/31/[address] [place] [address] [address] Scan Report Signed Patient: Javed Kirkpatrick MR#: [id number] : 2Acct:[id number] Age/Sex: 64 / MADM Date: 01/30/25 Loc: [facility] Attending Dr: John Avalos DO Ordering Physician: John Avalos DO Date of Service: 01/30/25 Procedure(s): CT guided needle placement Accession Number(s): [id number] cc: Donta Mike MD; John Avalos DO Report Number: [id number]: Total DLP = 340.00 mGy-cm Reason for Exam: RT NECK MASS CORE BX EXAMINATION: CT-guided right neck mass biopsy. CLINICAL INDICATION: Right neck mass deep to the sternomastoid muscle. COMPARISON: CT neck 12/20/2024. TECHNIQUE: Following explaining CT fluoroscopy guided right neck mass biopsy procedure, benefits and risk a written consent was obtained. Patient was placed supine on CT fluoroscopy table with axial imaging obtained through the anterior neck. An optimal slice was selected with the mass was the greatest visualized and skin lead markers were placed and repeat imaging was obtained. An optimal lead marker was selected and marked on the skin. The marked site was cleaned and draped in usual sterile manner with 2% chlorhexidine solution. 1% lidocaine was injected puncture site. A 20-gauge guide needle was advanced from the skin to the upper segment of the right neck mass deep to the sternomastoid muscle. Coaxially a 3 pass core biopsy of the right neck masses obtained. Repeat CT imaging was performed post biopsy. There are no immediate complications.. FINDINGS: On preliminary CT imaging there is heterogenous lobulated right neck mass deep to right sternomastoid muscle level 3. It measures 3.1 x 2.3 x 3.6 cm. There are additional several lymph nodes seen in the right neck with the largest measuring 7 mm on axial imaging 62/3. A 3 pass core biopsy of right neck mass was obtained. 3 samples collected second sent to lab in colon solution. CT/CT guided needle placement IMPRESSION: Right neck mass with several lymph nodes. Successful CT-guided right neck mass biopsy performed. Electronically signed by: Miguel Bermudez MD 01/31/2025 07:05 AM EDT Dictated By: Miguel Bermudez MD Signed By: <Electronically signed by Miguel Bermudez MD in OV> 01/31/25 0705 DD/ 1200 TD/TT: 01/30/25 1323 Banking Services Clerk: ANDREW [facility] External Provider IMG CT PROCEDURES Final Result * Glucose, Whole Blood (01/30/2025 9:40 AM EDT) Glucose, Whole Blood 108 60 - 115 mg/dL [facility] Comment:METER #: [id number] 01/30/2025 9:40 AM EDT 01/30/2025 9:49 AM EDT Generic External Data Provider LAB BLOOD ORDERAB LES Final Result Performing Organization Address [facility]/ZIP Co de Phone Number [facility] [address] [place] [phone] * Type and screen (01/30/2025 9:10 AM EDT) Blood Type OP [facility] Antibody Screen NEGATIVE [facility] 01/30/2025 9:10 AM EDT 01/30/2025 9:16 AM EDT Generic External Data Provider LAB BLOOD BANK TE ST ORDERABLES Final Result Performing Organization Address [facility] Co de Phone Number [facility] [address] [place] [phone] * Prothrombin Time-INR (01/30/2025 9:10 AM EDT) [facility] Prothrombin Time 11.3 10.9 - 12.4 SEC [facility] INTERNATIONAL NORM RATIO 1.0 0.9 - 1.1 [facility] Comment:INTERNATIONAL NORMAL IZED RATIO (INR) REFERENCE RANGES Reference RangeFor patients not on anticoagulant therapy: 0.9 - 1.1INR ranges for oral anticoagulanttherapy:For prevention and treatment of venous thrombosis and pulmonary embolism: 2.0 - 3.0For acute myocardial infarction with aspirin therapy: 2.0 - 3.0For acute myocardial infarction without aspirin therapy: 3.0 - 4.0For patients with mechanical prosthetic heart valves: 2.5 - 3.5 01/30/2025 9:10 AM EDT 01/30/2025 9:14 AM EDT Generic External Data Provider LAB BLOOD ORDERAB LES Final Result Performing Organization Address City/State/[facility] Co de Phone Number [facility] [address] [place] [phone] * (ABNORMAL) CBC auto differential (01/30/2025 9:10 AM EDT) [facility] White Blood Count 7.0 4.8 - 10.8 X10*3/uL [facility] Red Blood Count 4.61 4.60 - 5.80 X10*6/uL [facility] Hemoglobin 14.0 14.0 - 18.0 g/dl [facility] Hematocrit 42.0 42.0 - 52.0 % [facility] Mean Corpuscular Volume 91.1 80.0 - 98.0 fL [facility] Mean Corpuscular Hemoglobin 30.4 27.0 - 33.0 pg [facility] Mean Corpuscular HGB Conc 33.3 31.0 - 36.0 g/dl [facility] Red Cell Distribution Width 14.8 11.0 - 16.0 % [facility] Platelet Count 212 160 - 400 X10*3/uL [facility] Mean Platelet Volume 11.0 9.4 - 12.4 fL [facility] Neutrophils Percent Auto 53.0 45 - 73 % [facility] Imm Gran Pct Auto 0.7(H) 0.0 - 0.4 % [facility] Lymphocytes Percent Auto 35.5 20 - 40 % [facility] Monocytes Percent Auto 8.8 2 - 11 % [facility] Eosinophils Percent Auto 1.4 0 - 4 % [facility] Basophils Percent Auto 0.6 0 - 2 % [facility] NRBC Pct Auto 0.0 0.0 - 0.2 /100WBC [facility] Neutrophils Absolute Auto 3.7 2.0 - 8.3 x10*3/uL [facility] Imm Gran Abs Auto 0.05(H) 0.00 - 0.03 X10*3/uL [facility] Lymphocytes Absolute Auto 2.5 1.2 - 4.9 X10*3/uL [facility] Monocytes Absolute Auto 0.6 0.1 - 1.2 X10*3/uL [facility] Eosinophils Absolute Auto 0.1 0.0 - 0.4 X10*3/uL [facility] Basophils Absolute Auto 0.0 0.0 - 0.2 X10*3/uL [facility] NRBC Abs Auto 0.000 0.0 - 0.012 X10*3/uL [facility] 01/30/2025 9:10 AM EDT 01/30/2025 9:14 AM EDT us Generic External Data Provider LAB BLOOD ORDERAB LES Final Result [facility] [address] [place] [phone] documented in this encounter Visit Diagnoses Not on filedocumented in this encounter Additional Health Concerns Assessment Noted Time PHQ-9 Depression Total Score: 17 05/2 025 3:19 PM EDT documented as of this encounter Care Teams Hand Tier Relationship Specialty Start Date End Date Donta Mike MD [address] [place] [phone] PCP - General Internal Medicine 08/30/24 documented as of this encounter
--- OUTSIDE RECORDS SUMMARY | 2025-02-03 09:43 | XMS_ITS | Clinical Summary ---
Author Organization 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 [employer] test stripIndications: Type 2 diabetes mellitus without complication, 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 retail representative insulin use (CMS/HCC) Please check sugar 4 [...] 2 diabetes mellitus without complication, 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 retail representative insulin use (CMS/HCC) Take 1 tablet (1,000 [...] 25 Active aspirin 81 MG chewable tabletIndications :shelter current use of anticoagulant Chew 1 tablet [...] organization. Date Type Department Care Team Description 01/30/2025 Orders Only GENERIC EXTERNAL DATA DEPARTMENT Provider, Generic External Data 01/26/2025 Orders Only [facility] [address] [place] [address] Donta Mike MD 01/24/2025 9:00 AM EDT Telemedicine [facility] [address] [place] [address] Donta Mike MD Type 2 diabetes mellitus without complication, without long-term current use of insulin ([facility]) (Primary Dx); Primary hypertension; Seborrheic dermatitis 01/24/2025 Travel 01/23/2025 Telephone [facility] [address] [place] [address] Donta Mike MD Lab Orders 01/23/2025 Telephone [facility] [address] [place] [address] Donta Mike MD chart prep 01/16/2025 3:30 PM EDT Office Visit [facility] [address] [place] [address] Ainsley Hayward MD Chronic low back pain with bilateral sciatica, unspecified back pain laterality (Primary Dx) 01/16/2025 Travel 01/16/2025 Telephone [facility] [address] [place] [address] Donta Mike MD Nurse Triage 01/12/2025 Refill [facility] MED & PEDS [address] [place] [address] Donta Mike MD 12/30/2024 Telephone [facility] [address] [place] [address] Donta Mike MD RV APPT 12/26/2024 Travel 12/23/2024 Telephone [facility] [address] [place] [address] Donta Mike MD chart prep 12/22/2024 Travel 12/20/2024 Telephone [facility] MEDICINE [address] [place] [phone] Donta Mike MD Referral 12/20/2024 Telephone [facility] [address] [place] [address] Donta Mike MD Referral 12/14/2024 Telephone [facility] [address] [place] [phone] Donta Mike MD concerns 12/14/2024 Orders Only [facility] [address] [place] [address] Donta Mike MD Abdominal aortic aneurysm (AAA) without rupture, unspecified part (CMS/HCC) (Primary Dx) 12/14/2024 Telephone [facility] PEDIATRICS [address] [place] [phone] Donta Mike MD INCIDENTAL FINDING 12/06/2024 Telephone [facility] [address] [place] [address] Donta Mike MD Results 11/22/2024 8:45 AM EDT Office Visit [facility] [address] [place] [address] Donta Mike MD Primary hypertension (Primary Dx); Type 2 diabetes mellitus without complication, 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 retail representative insulin use (CMS/HCC); Mixed hyperlipidemia; Benign paroxysmal positional vertigo due to bilateral vestibular disorder; Epididymitis with no abscess; Difficulty walking; Seborrheic dermatitis; Mass of right side of neck 11/22/2024 Refill [facility] [address] [place] [address] Donta Mike MD 11/22/2024 Travel 11/22/2024 Orders Only [facility] [address] [place] [address] Donta Mike MD 11/20/2024 Refill [facility] [address] [place] [address] Donta Mike MD from Last 3 Months [...] Description 02/08/2025 2:45 PM EDT Office Visit [facility] [address] [place] [address] [place], [facility] [address] [place] [address] Health Maintenance Due Date Last Done Comments [...] 2025 Influenza Vaccine (#1) 2025 9, 05/14/2006 Depression Monitoring 03/29/2025 09/26/2024 , 09/26/2024 Diabetes: Hemoglobin A1C 07/26/2025 025, 11/22/2024 Alcohol/Substance Use Screening 09/22/2025 09/22/2024 SDOH Screening 09/22/2025 09/22/2024 Lung Cancer Screening 12/09/2025 12/09/2024 Tobacco Screening 01/16/2026 01/16/2025 Diabetes: Urine Protein Screening 01/26/2026 01/26/2025, 11/28/2024 Lipid Panel 01/26/2026 01/26/2025, 11/28/2024 RSV Patients and Patients Aged 60 years or older (1 - 1-dose 75+ series) 2036 HIV Screening Completed 01/26/2025, 11/28/2024 Hepatitis C Screening Completed 01/26/2025 , 11/28/2024 HIB Vaccines Aged Out No longer [...] WHOLE BLOOD Routine 01/30/2025 9:40 AM EDT TYPE AND SCREEN Routine 01/30/2025 9:10 AM EDT PROTHROMBIN TIME-INR Routine 01/30/2025 9:10 AM EDT CBC WITH AUTO DIFFERENTIAL Routine 01/30/2025 9:10 AM EDT HIV 1/2 ANTIGEN/ANTIBODY, FOURTH GENERATION W/RFL Routine 01/26/2025 3:39 PM EDT HEPATITIS C AB W/REFL TO HCV RNA, QN, PCR Routine 01/26/2025 3:39 PM EDT TSH W/REFLEX TO FT4 Routine 01/26/2025 3 :39 PM EDT LIPID PANEL, STANDARD Routine 01/26/2025 3:39 PM EDT ALBUMIN, RANDOM URINE W/CREATININE Routine 01/26/2025 3:39 PM EDT HEMOGLOBIN A1C Routine 01/26/2025 3:39 PM EDT Type 2 diabetes mellitus without complication, without long-term current use of insulin (CMS/HCC) T-SPOT(R).TB Routine 01/26/2025 3:39 PM EDT Screening-pulmonary TB COMPREHENSIVE METABOLIC PANEL Routine 01/26/2025 3:39 PM EDT Type 2 diabetes mellitus without complication, 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 retail representative insulin use (CMS/HCC) CBC WITH AUTO DIFFERENTIAL Routine 01/26/2025 3:39 PM EDT Type 2 diabetes mellitus without complication, 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 retail representative insulin use (CMS/HCC) CT SOFT TISSUE NECK W CONTRAST Routine 12/20/2024 7:56 AM EDT Mass of right side of neck LDCT LUNG SCREENING Routine 12/09/2024 9 :21 AM EDT TSH W/REFLEX TO FT4 Routine 11/28/2024 8 :45 AM EDT Type 2 diabetes mellitus without complication, 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 retail representative insulin use (CMS/HCC) LIPID PANEL, STANDARD Routine 11/28/2024 8:45 AM EDT Type 2 diabetes mellitus without complication, 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 retail representative insulin use (CMS/HCC) ALBUMIN, RANDOM URINE W/CREATININE Routine 11/28/2024 8:40 AM EDT Type 2 diabetes mellitus without complication, 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 retail representative insulin use (CMS/HCC) CBC WITH AUTO DIFFERENTIAL Routine 11/28/2024 8:25 AM EDT IRON AND TOTAL IRON BINDING CAPACITY Routine 11/28/2024 8:25 AM EDT BASIC METABOLIC PANEL Routine 11/28/2024 8:25 AM EDT HEPATITIS C AB W/REFL TO HCV RNA, QN, PCR Routine 11/28/2024 8:25 AM EDT Type 2 diabetes mellitus without complication, 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 longterm insulin use (CMS/HCC) HIV 1/2 ANTIGEN/ANTIBODY, FOURTH GENERATION W/RFL Routine 11/28/2024 8:25 AM EDT Type 2 diabetes mellitus without complication, 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 retail representative insulin use (CMS/HCC) POCT GLYCATED HEMOGLOBIN, TOTAL Routine 11/22/2024 8:50 AM EDT Type 2 diabetes mellitus without complication, 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 longterm insulin use (CMS/HCC) POCT GLUCOSE Routine 11/22/2024 8:49 AM EDT Type 2 diabetes mellitus without complication, 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 retail representative insulin use ([facility]) from Last 3 Months Results * Gross and Microscopic Level 4 (01/30/2025 12:00 PM EDT) 01/30/2025 12:0 0 PM EDT 01/30/2025 1:30 PM EDT [facility] LABS - 02/02/2025 5:12 PM EDT ----- ------- Name: Hannah EugeniaHiltonJaved Age/Sex: 64/M : 1960 Unit#: [id number] Attend Dr: John Avalos DO Re01/30/25 Status: [facility] Location: [facility] Disch: ----- ------- SPEC : [id number] RECD: 01/30/25 STATUS: RENAN REJesse NUM: [id number] REGGIE: 01/30/25-[address]: Miguel Bermudez MD ENTERED: 01/30/25 SP TYPE: Surgical OTHR DR: Donta Mike MD, Daniel H DO ORDERED: Gross Micro L4, IHC, Add. immunos/2, p16, p40, p63 Addendum Addendum 1 Entered: 02/02/25 The tumor cells are non-immunoreactive with p16 (appropriate positive control). No change is made to the diagnosis. Addendum Signed (signature on file) Linden Maher MD 02/02/25 1712 ----- ------- Diagnosis Lymph node, right neck, [...] A1 and 3 pieces in cassette A2. ([facility]) This case was reviewed intradepartmentally; results discussed with Dr. Avalos on 02/02/2025 CONTINUED ON NEXT PAGE ----- ------- Name: Javed Kirkpatrick Age/Sex: 64/M : 1960 Unit#: [id number] Attend Dr: John Avalos DO Re01/30/25 Status: [facility] Location: [facility] Disch: ----- ------- SPEC : [id number] RECD: 01/30/25 STATUS: RENAN ORELLANA NUM: [id number] REGGIE: 01/30/[address] [facility] [address]: Miguel Bermudez MD ENTERED: 01/30/25 SP [...] developed and their performance characteristics determined by [facility]. They have not been cleared or approved by the U.S. Food and Drug Administration (FDA). However, the FDA has determined that such clearance or approval is not necessary. This laboratory is certified under the Clinical Laboratory Improvement Amendments of 1988 (CLIA) as qualified to perform high complexity clinical laboratory testing. Copies To: Donta Mike MD [address] [phone] John [place] [address] Miguel Bermudez MD [address] [place] [phone] ----- ------- Signed (signature on file) Linden Maher MD 02/02/25 0924 ----- ------- END OF REPORT us Generic External Data Provider LAB CYTOLOGY ORDRambo SHELL Final Result [facility] [address] [place] [address] [phone] * CT Guided Percutaneous Biopsy Muscle (01/30/2025 12:00 PM EDT) Anatomical Region Laterality Modality Body Computed Tomogra phy 01/30/2025 12:0 0 PM EDT Narrative 01/31/2025 7:08 AM EDT [address] [address] [address] Scan Report Signed Patient: Javed Kirkpatrick MR#: [id number] : 1960 Acct:[id number] Age/Sex: 64 / M ADM Date: 01/30/25 Loc: [facility] Attending Dr: John Avalos DO Ordering Physician: John Avalos DO Date of Service: 01/30/25 Procedure(s): CT biopsy muscle Accession Number(s): [id number] cc: Donta Mike MD; John Avalos DO Report Number: [id number]: Total DLP = 340.00 mGy-cm Reason for [...] Miguel Bermudez MD 01/31/2025 07:05 AM EDT RP Dictated By: Miguel Bermudez MD Signed By: <Electronically signed by Miguel Bermudez MD in OV> 01/31/25 0705 DD/ 1200 TD/TT: 01/30/25 1323 Study Assistant: [facility] Procedure Note Donotuseinterpreter, Image - 01/31/[address] [address] [address] Scan Report Signed Patient: Javed Kirkpatrick MR#: [id number] : 1960cct:[id number] Age/Sex: 64 / MADM Date: 01/30/25 Loc: .[facility] Attending Dr: John Avalos DO Ordering Physician: John Avalos DO Date of Service: 01/30/25 Procedure(s): CT biopsy muscle Accession Number(s): [id number] cc: Donta Mike MD; John Avalos DO Report Number: [id number]: Total DLP = 340.00 mGy-cm Reason for [...] 01/31/25 0705 DD/ 1200 TD/TT: 01/30/25 1323 Study Assistant: AND[facility] External Provider IM CT PROCEDURES Final Result * CT Guided Imaging for Needle Placement (01/30/2025 12:00 PM EDT) Anatomical Region Laterality Modality Computed Tomogra phy 01/30/2025 12:0 0 PM EDT Narrative 01/31/2025 7:08 AM EDT [address] [address] [address] Scan Report Signed Patient: Javed Kirkpatrick MR#: [id number] : 1960 Acct:[id number] Age/Sex: 64 / M ADM Date: 01/30/25 Loc: [facility] Attending Dr: John Avalos DO Ordering Physician: John Avalos DO Date of Service: 01/30/25 Procedure(s): CT guided needle placement Accession Number(s): [id number] cc: Donta Mike MD; John Avalos DO Report Number: [id number]: Total DLP = 340.00 mGy-cm Reason for [...] Miguel Bermudez MD 01/31/2025 07:05 AM EDT RP Dictated By: Miguel Bermudez MD Signed By: <Electronically signed by Miguel Bermudez MD in OV> 01/31/25 0705 DD/ 1200 TD/TT: 01/30/25 1323 Study Assistant: [facility] Procedure Note Donotuseinterpreter, Image - 01/31/[address] [place] [address] [address] Scan Report Signed Patient: Javed Kirkpatrick MR#: [id number] : 1960cct:[id number] Age/Sex: 64 / MADM Date: 01/30/25 Loc: .[facility] Attending Dr: John Avalos DO Ordering Physician: John Avalos DO Date of Service: 01/30/25 Procedure(s): CT guided needle placement Accession Number(s): [id number] cc: Donta Mike MD; John Avalos DO Report Number: [id number]: Total DLP = 340.00 mGy-cm Reason for [...] Miguel Bermudez MD 01/31/2025 07:05 AM EDT RP Dictated By: Miguel Bermudez MD Signed By: <Electronically signed by Miguel Bermudez MD in OV> 01/31/25 0705 DD/ 1200 TD/TT: 01/30/25 1323 Study Assistant: ANDREW [facility] External Provider IMG CT PROCEDURES Final Result * Glucose, Whole Blood (01/30/2025 9:40 AM EDT) Pathologist [facility] Glucose, Whole Blood 108 60 - 115 mg/dL [facility] Comment:METER #: [id number] 01/30/2025 9:40 AM EDT 01/30/2025 9:49 AM EDT Generic External Data Provider LAB BLOOD ORDERAB LES Final Result [facility] [address] [place] [phone] * (ABNORMAL) CBC auto differential (01/30/2025 9:10 AM EDT) Only the most recent of3 resultswithin the time period is included. Pathologist [facility] White Blood Count 7.0 4.8 - 10.8 X10*3/uL [facility] Red Blood Count 4.61 4.60 - 5.80 X10*6/uL [facility] Hemoglobin 14.0 14.0 - 18.0 g/dl [facility] Hematocrit 42.0 42.0 - 52.0 % [facility] Mean Corpuscular Volume 91.1 80.0 - 98.0 fL [facility] Mean Corpuscular Hemoglobin 30.4 27.0 - 33.0 pg [facility] Mean Corpuscular HGB Conc 33.3 31.0 - 36.0 g/dl [facility] Red Cell Distribution Width 14.8 11.0 - 16.0 % [facility] Platelet Count 212 160 - 400 X10*3/uL [facility] Mean Platelet Volume 11.0 9.4 - 12.4 fL [facility] Neutrophils Percent Auto 53.0 45 - 73 % [facility] Imm Gran Pct Auto 0.7(H) 0.0 - 0.4 % [facility] Lymphocytes Percent Auto 35.5 20 - 40 % [facility] Monocytes Percent Auto 8.8 2 - 11 % [facility] Eosinophils Percent Auto 1.4 0 - 4 % [facility] Basophils Percent Auto 0.6 0 - 2 % [facility] NRBC Pct Auto 0.0 0.0 - 0.2 /100WBC [facility] Neutrophils Absolute Auto 3.7 2.0 - 8.3 x10*3/uL [facility] Imm Gran Abs Auto 0.05(H) 0.00 - 0.03 X10*3/uL [facility] Lymphocytes Absolute Auto 2.5 1.2 - 4.9 X10*3/uL [facility] Monocytes Absolute Auto 0.6 0.1 - 1.2 X10*3/uL [facility] Eosinophils Absolute Auto 0.1 0.0 - 0.4 X10*3/uL [facility] Basophils Absolute Auto 0.0 0.0 - 0.2 X10*3/uL [facility] NRBC Abs Auto 0.000 0.0 - 0.012 X10*3/uL [facility] 01/30/2025 9:10 AM EDT 01/30/2025 9:14 AM EDT us Generic External Data Provider LAB BLOOD ORDERAB LES Final Result Performing Organization Address [facility] Co de Phone Number [facility] [address] [place] [phone] * Prothrombin Time-INR (01/30/2025 9:10 AM EDT) Prothrombin Time 11.3 10.9 - 12.4 SEC [facility] INTERNATIONAL NORM RATIO 1.0 0.9 - 1.1 [facility] Comment:INTERNATIONAL NORMAL IZED RATIO (INR) REFERENCE [...] ORDERAB LES Final Result Performing Organization Address City/[facility] Co de Phone Number [facility] [address] [place] [phone] * Type and screen (01/30/2025 9:10 AM EDT) Blood Type OP [facility] Antibody Screen NEGATIVE [facility] 01/30/2025 9:10 AM EDT 01/30/2025 9:16 AM EDT Generic External Data Provider LAB BLOOD BANK TE ST ORDERABLES Final Result Performing Organization Address [facility]/ZIP Co de Phone Number [facility] [address] [place] [phone] * T-SPOT??.TB (01/26/2025 3:39 PM EDT) [facility] T Spot TB Negative Negative [facility] Comment:A negative test resu lt does not exclude the possibilityof exposure to or infection with Mycobacteriumtuberculosis (M. tuberculosis). Patients with recentexposure to TB infected individuals exhibiting anegative T-SPOT.TB result should be considered forretesting within 6 weeks or if other relevant clinicalsymptoms indicate. Results from T-SPOT.TB testing mustbe used in conjunction with each individual'sepidemiological history, current medical status,and results of other diagnostic evaluations.The T-SPOT.TB test is qualitative and results arereported as positive, borderline, or negative, giventhat the test controls perform as expected. In linewith the Centers for Disease Control and Prevention's2010 recommendation to report quantitative measurementsalongside the qualitative result, the laboratoryprovides spot counts for informational purposes only.The T-SPOT.TB test should not be interpreted as aquantitative test. TS PANEL A 2 [facility] TS PANEL B 0 [facility] Negative Control Passed [facility] Positive Control Passed [facility] Comment:For additional infor nichelle, please refer tohttp://education.[employer].Enkia/faq/DDH319(This link is being provided for informational/educational purposes only.)THIS TEST WAS PERFORMED AT:[employer]/[id number] [place] [address]JTNQBGBJESSICA REEDER MD,PHD 01/26/2025 3:39 PM EDT 01/26/2025 5:45 PM EDT us Donta Avalos MD LAB BLOOD ORDERABL ES Final Result Performing Organization Address [facility]/ZIP Co de Phone Number [facility] [address] [place] [phone] * TSH with Reflex to Free T4 (01/26/2025 3:39 PM EDT) Only the most recent of2 resultswithin the time period is included. TSH reflex Free T4 0.32 0.32 - 4.0 uIU/mL [facility] 01/26/2025 3:39 PM EDT 01/26/2025 5:45 PM EDT Donta Avalos MD LAB BLOOD ORDERABL ES Final Result Performing Organization Address [facility]/ZIP Co de Phone Number [facility] [address] [place] [phone] * Albumin, Random Urine W/Creatinine (01/26/2025 3:39 PM EDT) Only the most recent of2 resultswithin the time period is included. Pathologist [facility] Creatinine, Urine 37.81 mg/dL [facility] Microalbumin Urine <5.0 mg/L [facility] Microalbum Creatinine Ratio Ur TNP <30 ug/mg cr [facility] Comment:Unable to calculate albumin/creatinine ratio due to lowmicroalbumin or creatinine result. 01/26/2025 3:39 PM EDT 01/26/2025 4:03 PM EDT Donta Avalos MD LAB URINE ORDERABL ES Final Result Performing Organization Address City/[facility]/ZIP Co de Phone Number [facility] [address] [place] [phone] * Hepatitis C Antibody with Reflex to HCV, RNA, Quantitative, Real-Time PCR (01/26/2025 3:39 PM EDT) Only the most recent of2 resultswithin the time period is included. Pathologist [facility] Hepatitis C Antibody Nonreactive Nonreactive [facility] Comment:Antibodies to HCV no t detected; does not exclude early acuteHCV infection. 01/26/2025 3:39 PM EDT 01/26/2025 5:45 PM EDT Donta Avalos MD LAB BLOOD ORDERABL ES Final Result Performing Organization Address [facility]/ZIP Co de Phone Number [facility] [address] [place] [phone] * HIV-1/2 Antigen and Antibodies, Fourth Generation, with Reflexes (01/26/2025 3:39 PM EDT) Only the most recent of2 resultswithin the time period is included. HIV AB/AG Nonreactive Nonreactive [facility] Comment:HIV-1 p24 Ag and/or HIV-1/HIV-2 Ab not detected.A test result that is nonreactive does not exclude thepossibility of exposure to or infection with HIV-1 and/orHIV-2. Nonreactive results in this assay for individualswith prior exposure to HIV-1 and/or HIV-2 may be due toantigen and antibody levels that are below the limit ofdetection of this assay.The [employer]oon[employer] HIV Ag/Ab Combo assay result andsupplemental assay results should be interpreted inconjunction with the patient's clinical presentation,history and other laboratory results. If the results areinconsistent with clinical evidence, additional testing issuggested to confirm the result. 01/26/2025 3:39 PM EDT 01/26/2025 5:45 PM EDT us Donta Avalos MD LAB BLOOD ORDERABL ES Final Result Performing Organization Address [facility]/ZIP Co de Phone Number [facility] [address] [place] [phone] * (ABNORMAL) Hemoglobin A1c (01/26/2025 3:39 PM EDT) Hemoglobin A1c 6.8(H) <6.0 % [facility] Comment:Hemoglobin A1C Refer ence Range Adults: 4.8 - 6.0 % Non diabetic: < 6.0 % Goal: < 7.0 %Additional Action Suggested: > 8.0 %Note: Hemoglobin A1c results are invalid for patients with abnormal amounts of HbF. Blood transfusions may impact the HbA1c concentration in the patient sample. Estimated Average Glucose 148 mg/dL [facility] Comment:eAG = Estimated ave rage glucose which is %A1C expressed asaverage glucose, using the formula of the P7U-[id number] Glucose study (ADAG), Diabetes Care, Vol.31,#8,Dec. 2007 Blood Venous blood specimen / Unknown 01/26/2025 3:39 PM EDT 01/26/2025 5:45 PM EDT us Donta Avalos MD LAB BLOOD ORDERABL ES Final Result [facility] [address] [place] [phone] * Lipid Panel, Standard (01/26/2025 3:39 PM EDT) Only the most recent of2 resultswithin the time period is included. Triglycerides 109 <150 mg/dL [facility] Comment:Slight Lipemia.Brie able Triglyceride: less than 150 mg/dLBorderline High Triglyceride 150-199 mg/dLHigh Triglyceride: 200-499 mg/dLVery High Triglyceride: greater than or equal to 5OO mg/dL Cholesterol 153 <200 mg/dL [facility] Comment:Desirable Cholestero l: less than 200 mg/dLBorderline High Cholesterol: 200-239 mg/dLHigh Cholesterol: greater than 239 mg/dL LDL Cholesterol Calculated 82 <100 mg/dL [facility] Comment:Desirable LDL: less than 100 mg/dLNear Optimal/Above Optimal LDL: 110- 129 mg/dLBorderline High LDL: 130-159 mg/dLHigh LDL: 160-189 mg/dLVery High LDL: greater than or equal to 190 mg/dL HDL Cholesterol 50 >40 mg/dL [facility] Comment:Desirable HDL: great er than 40 mg/dL Note: This HDL assay may give artificially low results in patients with liver disease. 01/26/2025 3:39 PM EDT 01/26/2025 5:45 PM EDT us Donta Avalos MD LAB BLOOD ORDERABL ES Final Result [facility] [address] [place] [phone] * (ABNORMAL) Comprehensive Metabolic Panel (01/26/2025 3:39 PM EDT) Sodium 141 135 - 145 mmol/L [facility] Potassium 4.0 3.3 - 5.1 mmol/L [facility] Chloride 105 96 - 108 mmol/L [facility] Carbon Dioxide 28 22 - 29 mmol/L [facility] Anion Gap 12 12 - 20 [facility] Urea Nitrogen (BUN) 18(H) 9 - 16 mg/dL [facility] Creatinine, Serum 0.98 0.5 - 1.4 mg/dL [facility] Estimated Glomerular Filt Rate >60 [facility] Comment:Chronic Kidney Disea se: Estimated GFR < 60 mL/min/1.21n4Kqbuwt Kidney Disease: Estimated GFR < 15 mL/min/1.73m2 Glucose 230(H) 60 - 115 mg/dL [facility] Calcium 9.4 8.4 - 10.2 mg/dL [facility] Bilirubin, Total 0.2 0.0 - 1.0 mg/dL [facility] Aspartate Amino Transferase 35 5 - 37 U/L [facility] Alanine Aminotransferase 35 0 - 40 U/L [facility] Total Protein 7.5 6.5 - 8.0 g/dL [facility] Albumin Level 4.7 3.5 - 5.0 g/dL [facility] Alkaline Phosphatase 55 39 - 117 U/L [facility] Blood Venous blood specimen / Unknown 01/26/2025 3:39 PM EDT 01/26/2025 5:45 PM EDT us Donta Avalos MD LAB BLOOD ORDERABL ES Final Result [facility] [address] [place] [phone] * CT Soft Tissue Neck w/ Contrast (12/20/2024 7:56 AM EDT) Anatomical Region Laterality Modality Head, Neck Computed Tomogra phy 12/20/2024 7:56 AM EDT Narrative 12/20/2024 8:47 AM EDT [address] [address] [address] Scan Report Signed with Addenda Patient: Javed Kirkpatrick MR#: [id number] : 1960 Acct:[id number] Age/Sex: 64 / M ADM Date: 12/20/24 Loc: HO.CT Attending Dr: Donta Avalos MD Ordering Physician: Donta Mike MD Date of Service: 12/20/24 Procedure(s): CT soft tissue neck w IV con Accession Number(s): [id number] cc: Donta Mike MD Report Number: [id number]: Total DLP = 316.00 mGy-cm ADDENDUM ADDENDUM [...] palatine tonsils, right greater than left side. Sales [employer] Support [employer] Agent spaces, parapharyngeal spaces demonstrated no gross masses. [...] Trinidad MD in OV> 12/20/24 0844 DD/ 0756 TD/TT: 12/20/24 0816 Study Assistant: Procedure Note Donotuseinterpreter, Image - 12/20/[address] [place] [address] [address] Scan Report Signed with Addenda Patient: Javed Kirkpatrick MR#: [id number] : 2Acct:[id number] Age/Sex: 64 / MADM Date: 12/20/24 Loc: HO.CT Attending Dr: Donta Avalos MD Ordering Physician: Donta Mike MD Date of Service: 12/20/24 Procedure(s): CT soft tissue neck w IV con Accession Number(s): [id number] cc: Donta Mike MD Report Number: [id number]: Total DLP = 316.00 mGy-cm ADDENDUM ADDENDUM #1 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 Electronically signed by: Javed Miller MD 12/20/2024 11:12 AM EDT RP Addendum Dictated By: Javed Trinidad MD Addendum Signed By: <Electronically signed by Leland Trinidad MD in OV> 12/20/24 1112 Addendum [...] palatine tonsils, right greater than left side. Sales [employer] Support Center Agent spaces, parapharyngeal spaces demonstrated no gross masses. [...] 12/20/24 0844 DD/ 0756 TD/TT: 12/20/24 0816 Study Assistant: Donta Avalos MD IM CT PROCEDURES Edited Result - Final * CT Lung Screening Low dose (12/09/2024 9:21 AM EDT) Anatomical Region Laterality Modality Lung Computed Tomogra phy 12/09/2024 9:21 AM EDT Narrative 12/09/2024 10:02 AM EDT [address] [address] [address] Scan Report Signed Patient: Javed Kirkpatrick MR#: [id number] : 1960 Acct:[id number] Age/Sex: 64 / M ADM Date: 12/09/24 Loc: HO.CT Attending Dr: Nicole Whittington PA-C Ordering Physician: Nicole Whittington PA-C Date of Service: 12/09/24 Procedure(s): CT lung screening Accession Number(s): [id number] cc: Donta Mike MD; Nicole Whittington PA-C Report Number: [id number]: Total DLP = 58.00 mGy-cm EXAMINATION: CT [...] for CT CHEST LOW DOSE CANCER SCREENING ([id number]) can be placed. Electronically signed by: Robb Veronica MD 12/09/2024 09:59 AM EDT Dictated By: Robb Veronica MD Signed By: <Electronically signed by Robb Veronica MD in OV> 12/09/24 0959 DD/ TD/TT: 12/09/24 0937 Study Assistant: Procedure Note Donotuseinterpreter, Image - 12/09/[address] [place] [address] [address] Scan Report Signed Patient: Javed Kirkpatrick MR#: [id number] : 2Acct:[id number] Age/Sex: 64 / MADM Date: 12/09/24 Loc: HO.CT Attending Dr: Nicole Whittington PA-C Ordering Physician: Nicole Whittington PA-C Date of Service: 12/09/24 Procedure(s): CT lung screening Accession Number(s): [id number] cc: Donta Mike MD; Nicole Whittington PA-C Report Number: [id number]: Total DLP = 58.00 mGy-cm EXAMINATION: CT [...] for CT CHEST LOW DOSE CANCER SCREENING ([id number]) can be placed. Electronically signed by: Robb Veronica MD 12/09/2024 09:59 AM EDT RP Dictated By: Robb Veronica MD Signed By: <Electronically signed by Robb Veronica MD in OV> 12/09/2459 DD/ 0 TD/TT: 12/09/24936 Study Assistant: [facility] External Provider IMG CT PROCEDURES Final Result * Iron And Total Iron Binding Capacity (11/28/2024 8:25 AM EDT) Pathologist [facility] Iron 123 45 - 160 mcg/dL [facility] Total Iron Binding Capacity 256 228 - 428 mcg/dL [facility] Percent Iron Saturation 48 15 - 50 % [facility] Unsaturated Iron Binding 133 ug/dL [facility] 11/28/2024 8:25 AM EDT 11/28/2024 2:03 PM EDT Generic External Data Provider LAB BLOOD ORDERAB LES Final Result [facility] [address] [place] [phone] * (ABNORMAL) Basic Metabolic Panel (11/28/2024 8:25 AM EDT) Pathologist [facility] Sodium 138 135 - 145 mmol/L [facility] Potassium 3.9 3.3 - 5.1 mmol/L [facility] Chloride 106 96 - 108 mmol/L [facility] Carbon Dioxide 25 22 - 29 mmol/L [facility] Anion Gap 11(L) 12 - 20 [facility] Urea Nitrogen (BUN) 11 9 - 16 mg/dL [facility] Creatinine, Serum 0.76 0.5 - 1.4 mg/dL [facility] Estimated Glomerular Filt Rate >60 [facility] Comment:Chronic Kidney Disea se: Estimated GFR < 60 mL/min/1.99f3Jyfgag Kidney Disease: Estimated GFR < 15 mL/min/1.73m2 Glucose 152(H) 60 - 115 mg/dL [facility] Calcium 9.2 8.4 - 10.2 mg/dL [facility] 11/28/2024 8:25 AM EDT 11/28/2024 2:03 PM EDT Generic External Data Provider LAB BLOOD ORDERAB LES Final Result [facility] [address] [place] [phone] * (ABNORMAL) POCT HGB A1C (11/22/2024 [...] Final Result from Last 3 Months Insurance [employer] ONE CARE < 65 [facility] Care Teams Handicraft Or Hobby Shop Manager Relationship Specialty Start Date End Date Donta Mike MD [address] [place] [phone] PCP - General Internal Medicine 08/30/24
--- OUTSIDE RECORDS SUMMARY | 2025-02-03 09:43 | XMS_ITS | Clinical Summary ---
Author Organization [address] [facility] Address [address] [place] [address] Phone Care Team Providers Care Mgmt Consultant Name Role Phone Flores Donta Avalos Primary Care Provide r Allergies No known active allergies Medications ammonium lactate (AMLACTIN) 12 % cream Apply topically if needed for dry skin. 560 g 2 5 12/09/19 26 Active Encounters Date Type Department Care Team Description 12/08/2024 9:45 AM EDT Office Visit Orthopedic Surgery [facility] [address] [phone] Stanley Mayen DPM Controlled type 2 diabetes [...] Upcoming Encounters Date Type Department Care Team (Latest Contact Info) Description 02/13/2025 9:30 AM EDT Office Visit [facility] [address] [phone] Stalney Mayen DPM [address] [address] 02/20/2025 7:30 AM EDT Hospital Encounter [facility] [address] [place] [address] 02/20/2025 7:30 AM EDT - 02/20/2025 9:[address] [facility] [place] [address] [place] [address] John Avalos, DO [address] [facility] [address] [place] [address] LARYNGOSCOPY DIRECT WITH BIOPSY [[id number] (CPT )] Scheduled Procedures Name Priority Associated Diagnoses Date/Ti me LARYNGOSCOPY DIRECT Squamous cell carcinoma of skin of scalp and neck 02/20/2025 7:30 AM EDT Health Maintenance Due Date Last Done Comments [...] patient's age to complete this topic Insurance [facility] Member Subscriber Plan / Payer (Ef fective 2024-Present) Name:Harsha KIRKPATRICK Relation to Subscriber:Self Name:Javed Kirkpatrick Payer ID:[id number] Group ID:[id number] Type:Not on file Address: [place] [address] [address] [address] Care Teams Mgmt Consultant Relationship Specialty Start Date End Date Donta Mike [address] [place], [place] PCP - General Internal Medicine 09/28/24
--- OUTSIDE RECORDS SUMMARY | 2025-02-03 09:43 | XMS_ITS | Encounter Summary ---
Author Organization [employer] Address 75 [facility] 7 [place] [address] Care Team Providers Care Synchronizer Name Role Phone Donta Mike MD Primary Care Prov ider Reason for Visit * Reason Onset Date Comments Nurse Triage 09/16/2024 Encounter Details Date Type Department Care Team (Late st Contact Info) Description 09/16/2024 Telephone [facility] MEDICINE 230 [place] [address] Donta Mike MD 505 [place], [place] [phone] Nurse Triage Social History Tobacco Use Types [...] 09/16/2024 12:59 PM EDT Called pt. Via [employer] master electrician Chastity [phone]. Busy signal came on phone. Called back x2. And got busy signal again. Verified phone number with master electrician. RE: Chest pain * Telephone Encounter - Radha Ventura - 09/16/2024 11:56 AM EDT Symptom: Chest Pain - Adult Outcome: Talk to a nurse or provider within 15 minutes Reason: Getting worse The caller accepted this outcome. documented in this encounter Plan of Treatment Upcoming Encounters Date Type Department Care Team ([facility] st Contact Info) Description 02/08/2025 2:45 PM EDT Office Visit [facility] MED & PEDS [address] [place] [address] Wang Lynch CNP 505 [place], [place] [phone] documented as of this encounter Visit Diagnoses Not on filedocumented in this encounter Care Teams Synchronizer Relationship Specialty Start Date End Date Donta Mike MD 505 [place] [address] PCP - General Internal Medicine 08/30/24 documented as of this encounter
--- OUTSIDE RECORDS SUMMARY | 2025-02-03 09:43 | XMS_ITS | Encounter Summary ---
Author Organization [employer] Address 75 [facility] 7t [place] [address] Care Team Providers Care Catering Convention Services Manager Name Role Phone Donta Mike MD Primary Care Prov ider Reason for Visit * Reason Onset Date Comments Referral 12/20/2024 Encounter Details Date Type Department Care Team (Late st Contact Info) Description 12/20/2024 Telephone [facility] MEDICINE [address] [place] [address] Donta Mike MD 505 [place], [place] [phone] Referral Social History Tobacco Use Types Packs/Day [...] send referral for cardiology to - [facility] Cardiology [address] [address] documented in this encounter Plan of Treatment Upcoming Encounters Date Type Department Care Team (Late st Contact Info) Description 02/08/2025 2:45 PM EDT Office Visit [facility] MED & PEDS [address] [place] [address] Wang Lynch, RAYNA 505 [place] [address] documented as of this encounter Visit Diagnoses Not on filedocumented in this encounter Additional Health Concerns Assessment Noted Time PHQ-9 Depression Total Score: 17 025 3:19 PM EDT documented as of this encounter Care Teams Catering Convention Services Manager Relationship Specialty Start Date End Date Flores Avalos, Donta, MD [address] [place] [address] PCP - General Internal Medicine 08/30/24 documented as of this encounter
--- OUTSIDE RECORDS SUMMARY | 2025-02-03 09:43 | XMS_ITS | Encounter Summary ---
Author Organization [employer] Address 75 [facility] 7 [place] [address] Care Team Providers Care Hospital Security Officer Name Role Phone Donta Mike MD Primary Care Prov ider Reason for Visit * Reason Onset Date Comments Durable Medical Equipment 10/11/2024 Encounter Details Date Type Department Care Team (Late st Contact Info) Description 10/11/2024 Telephone [facility] [address] [place], [place] [phone] Donta Mike MD 505 [place] [address] Durable Medical Equipment Social History Tobacco Use [...] be sent too [facility]. Contact pt at [phone] * Telephone Encounter - Anny Erwin - 10/11/2024 8:33 AM EDT TC from pt requesting DME order for a cane , blood pressure kit to be sent too [facility]. Contact pt at [phone] documented in this encounter Plan of Treatment Upcoming Encounters Date Type Department Care Team (Late st Contact Info) Description 02/08/2025 2:45 PM EDT Office Visit [facility] MED & PEDS 505 [place] [address] Wang Lynch, POLISHING MACHINE OPERATOR 505 [place], [place] [phone] documented as of this encounter Visit Diagnoses Not on filedocumented in this encounter Additional Health Concerns Assessment Noted Time PHQ-9 Depression Total Score: 17 025 3:19 PM EDT documented as of this encounter Care Teams Hospital Security Officer Relationship Specialty Start Date End Date Donta Mike MD [address] [place] [address] PCP - General Internal Medicine 08/30/24 documented as of this encounter
== END 2025-02-03 09:54 | disposition home or self-care (01) ==
LOC: HO.HGI 09:05
PROVIDERS: PCP Internal Medicine; Visit Provider Nurse Practitioner Family
DX: K21.9 Gastro-esophageal reflux disease without esophagitis (principal); K58.1 Irritable bowel syndrome with constipation
CPT/HCPCS: 99213

== ENCOUNTER → 2025-02-03 09:04 | Outpatient (BNVA) | payer OTHER, SELFPAY | PROVIDERS: PCP Internal Medicine; Visit Provider Nurse Practitioner Family | DX: K21.9 Gastro-esophageal reflux disease without esophagitis (principal); K58.1 Irritable bowel syndrome with constipation | CPT/HCPCS: 99212 ==

== ENCOUNTER 2025-03-13 12:19 | Outpatient (REF) | payer OTHER, SELFPAY ==
--- NOTE | ~2025-03-13 | US_ITS ---
EXAMINATION: US SCROTUM HISTORY: N45.1 - Epididymitis. COMPARISON: There are no prior studies available for comparison. FINDINGS: Real-time grayscale ultrasound imaging of the scrotum was performed. RIGHT TESTICLE: The right testis measures 4.1 x 2.1 x 3.5 cm and demonstrates normal homogeneous echotexture. No masses are seen. The right testis demonstrates normal color Doppler flow. RIGHT EPIDIDYMIS: Normal in size, shape, and vascularity. There is a 4 mm epididymal head cyst. LEFT TESTICLE: The left testis measures 3.7 x 1.7 x 3.2 cm and demonstrates normal homogeneous echotexture. No masses are seen. The left testis demonstrates normal color Doppler flow. There are left extratesticular calcifications. LEFT EPIDIDYMIS: The left epididymal body and tail are not well visualized. There is a 2 mm epididymal head cyst. VARICOCELE: None. HYDROCELE: No significant hydrocele is seen. OTHER COMMENTS: None. US/US scrotum IMPRESSION: Bilateral epididymal head cysts. Otherwise unremarkable scrotal ultrasound. Electronically signed by: Lyle Treadwell MD 03/13/2025 01:00 PM [facility]
--- OUTSIDE RECORDS SUMMARY | 2025-03-13 15:31 | XMS_ITS | Encounter Summary ---
Author Organization [employer] Address 75 [facility] 7t [place] [address] Care Team Providers Care Paint Preparer Name Role Phone Donta Mike MD Primary Care Prov ider Reason for Visit * Reason Comments Med Change Request Encounter Details Date Type Department Care Team ([facility] st Contact Info) Description 11/22/2024 Refill [facility] 505 [place], [place] [phone] Donta Mike MD 505 [place] [address] Social History Tobacco Use Types Packs/Day Years Used Date Smoking Tobacco: Every Day Cigarettes 0.5 43.8 Started: 1980 Smokeless Tobacco: Never Alcohol Use [...] documented in this encounter Plan of Treatment Not on file documented as of this encounter Visit Diagnoses Not on filedocumented in this encounter Additional Health Concerns Assessment Noted Time PHQ-9 Depression Total Score: 17 025 3:19 PM EDT documented as of this encounter Care Teams Paint Preparer Relationship Specialty Start Date End Date Donta Mike MD [address] [place] [address] PCP - General Internal Medicine 08/30/24 documented as of this encounter
--- OUTSIDE RECORDS SUMMARY | 2025-03-13 15:31 | XMS_ITS | Encounter Summary ---
Author Organization [employer] Address 75 [facility] 7 [place] [address] Care Team Providers Care Hide Dropper Name Role Phone Donta Mike MD Primary Care Prov ider Reason for Visit * Reason Onset Date Comments Durable Medical Equipment 10/11/2024 Encounter Details Date Type Department Care Team (Late st Contact Info) Description 10/11/2024 Telephone [facility] 505 [place], [place] [phone] Donta Mike MD [address] [place] [address] Durable Medical Equipment Social History Tobacco Use [...] be sent too [facility]. Contact pt at [phone] * Telephone Encounter - Anny Erwin - 10/11/2024 8:33 AM EDT TC from pt requesting DME order for a cane , blood pressure kit to be sent too [facility]. Contact pt at [phone] documented in this encounter Plan of Treatment Not on file documented as of this encounter Visit Diagnoses Not on filedocumented in this encounter Additional Health Concerns Assessment Noted Time PHQ-9 Depression Total Score: 17 025 3:19 PM EDT documented as of this encounter Care Teams Hide Dropper Relationship Specialty Start Date End Date Donta Mike MD [address] [place] [address] PCP - General Internal Medicine 08/30/24 documented as of this encounter
--- OUTSIDE RECORDS SUMMARY | 2025-03-13 15:32 | XMS_ITS | Encounter Summary ---
Author Organization [employer] Address 75 [facility] 7t [place] [address] Care Team Providers Care Junior Project Coordinator Name Role Phone Donta Mike MD Primary Care Prov ider Reason for Visit * Reason Onset Date Comments Medication Question 09/26/2024 Encounter Details Date Type Department Care Team (Late st Contact Info) Description 09/26/2024 Telephone [facility] MEDICINE [address] [place] [address] Donta Mike MD [address] [place], [place] [phone] Medication Question Social History Tobacco Use Types [...] your housing situation today? I have mesfin lenug 09/22/[address] you li [...] happen 3 09/26/2024 3:21 PM EDT Albert Avalso IRAM-7 Total Score 11 09/26/2024 3:21 PM [...] to further discuss. Please contact pt at [phone]. (Croatian Speaker) documented in this encounter Plan of Treatment Not on file documented as of this encounter Visit Diagnoses Not on filedocumented in this encounter Additional Health Concerns Assessment Noted Time PHQ-9 Depression Total Score: 17 025 3:19 PM EDT documented as of this encounter Care Teams Junior Project Coordinator Relationship Specialty Start Date End Date Donta Mike MD [address] [place] [address] PCP - General Internal Medicine 08/30/24 documented as of this encounter
--- OUTSIDE RECORDS SUMMARY | 2025-03-13 15:32 | XMS_ITS | Encounter Summary ---
Author Organization [employer] Address 75 [facility] 7 [place] [address] Care Team Providers Care Java Development Manager Name Role Phone Donta Mike MD Primary Care Prov ider Reason for Visit * Reason Onset Date Comments Nurse Triage 09/16/2024 Encounter Details Date Type Department Care Team (Late st Contact Info) Description 09/16/2024 Telephone [facility] MEDICINE 230 [place] [address] Donta Mike MD 505 [place], [place] [phone] Nurse Triage Social History Tobacco Use Types [...] 09/16/2024 12:59 PM EDT Called pt. Via [employer] hand i thermal cutter Chast[place] [phone]. Busy signal came on phone. Called back x2. And got busy signal again. Verified phone number with hand i thermal cutter. RE: Chest pain * Telephone Encounter - Radha Ventura - 09/16/2024 11:56 AM EDT Symptom: Chest Pain - Adult Outcome: Talk to a nurse or provider within 15 minutes Reason: Getting worse The caller accepted this outcome. documented in this encounter Plan of Treatment Not on file documented as of this encounter Visit Diagnoses Not on filedocumented in this encounter Care Teams Java Development Manager Relationship Specialty Start Date End Date Donta Mike MD [address] [place] [address] PCP - General Internal Medicine 08/30/24 documented as of this encounter
--- OUTSIDE RECORDS SUMMARY | 2025-03-13 15:32 | XMS_ITS | Encounter Summary ---
Author Organization [employer] Address 75 [facility] 7t [place] [address] Care Team Providers Care Dental Front Office Assistant Name Role Phone Donta Mike MD Primary Care Prov ider Reason for Visit * Reason Onset Date Comments Call Back Request 09/16/2024 Encounter Details Date Type Department Care Team (Late st Contact Info) Description 09/16/2024 Telephone [facility] MEDICINE [address] [place] [address] Donta Mike MD 505 [place], [place] [phone] Call Back Request Social History Tobacco Use [...] 1:31 PM EDT TC to patient via hat block bench hand. Patient stated he has recently moved her from [place], [place] and ran out of his medication a few days ago. One of those medications was Metoprolol. Patient denies chest pain currently but does admit to chest pain last week, and again last night. Patient also has a history of open heart surgery. This is a new patient. NO notes or med list available. Patient stated he used [facility] in [place], [place]. RN will call pharmacy and do a med rec. Patient alsostated he was recently seen in [facility], so this RN will obtain ER notes. * Telephone Encounter - Radha Lorenzo - 09/16/2024 11:40 AM EDT Tc from pt reporting was scheduled for telephone visit with PCP and never received call from no one. 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 Please return call [phone] documented in this encounter Plan of Treatment Not on file documented as of this encounter Visit Diagnoses Not on filedocumented in this encounter Care Teams Dental Front Office Assistant Relationship Specialty Start Date End Date Donta Mike MD [address] [place] [phone] PCP - General Internal Medicine 08/30/24 documented as of this encounter
--- OUTSIDE RECORDS SUMMARY | 2025-03-13 15:32 | XMS_ITS | Clinical Summary ---
Author Organization [employer] Address [address] [facility] [address] [place] [address] Care Team Providers Care Senior Partner Name Role Phone Donta Mike MD Primary Care Prov ider Allergies No known active allergies Medications * This document contains information received from the source organization and may not represent a complete record from that organization. 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 90 tablet 09/23/19 026 Active metoprolol tartrate (Lopressor) 25 MG tabletIndications :Atrial fibrillation, unspecified type (CMS/HCC) (HCC) Take 1 tablet (25 mg) by mouth 2 times daily. 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 180 tablet 09/23/19 026 Active sertraline (Zoloft) 50 MG tablet Take 1 tablet (50 mg) by mouth Once per day. 90 tablet 3 09/23/19 25 Active ammonium lactate (Lac-Hydrin) 12 % lotion Apply topically if needed for dry skin. 396 g 3 09/23/19 25 Active aspirin 81 MG chewable tabletIndications :FDC current use of anticoagulant Chew 1 tablet [...] test strip Monitor glucose BID 100 each 12 11/23/19 25 Active ketoconazole (NIZOral) 2 % shampoo Apply topically 2 (two) times a week. 480 mL 1 11/25/19 25 Active empagliflozin (Jardiance) 25 MG Take 1 tablet (25 mg) by mouth Once per day. 30 tablet 11 12/27/19 25 Active cyclobenzaprine (Flexeril) 10 MG tabletIndications :Chronic low back pain with bilateral sciatica, unspecified back pain laterality Take 1 tablet (10 mg) by mouth 2 times daily for 10 days. 20 tablet 01/17/20 25 Active Alcohol Swabs (Alcohol Prep) pads TEST BLOOD SUGAR BEFORE MEALS AND BEDTIME Active Alcohol Swabs (Alcohol Prep) 70 % pads 11/23/19 25 Active Linzess 145 MCG capsule 02/04/20 25 Active Blood Glucose Monitoring Suppl (FreeStyle [place] Lite) w/Device kit 11/23/19 25 Active zolpidem CR (Ambien CR) 12.5 MG ER tablet TAKE 1 TABLET BY MOUTH IF NEEDED AT BEDTIME FOR SLEEP. DO NOT CRUSH, CHEW, OR SPLIT. 30 tablet 02/25/20 25 Active zolpidem CR (Ambien CR) 12.5 MG ER tablet TAKE 1 TABLET BY MOUTH IF NEEDED AT BEDTIME FOR SLEEP. DO NOT CRUSH, CHEW, OR SPLIT. 30 tablet 01/14/20 25 025 Discontinued ibuprofen 400 MG tablet Take 1 tablet (400 mg) by mouth every 8 (eight) hours if needed for moderate pain or fever. 90 tablet 01/17/20 25 025 Active Problems Problem Noted Date Diagnosed Date Albuminuria 02/20/2025 Assessment & Plan (02/20/2025 1:17 PM EDT): On jardiance and eliot, needs improvement on diabetes control IRAM (generalized anxiety disorder) 02/17/2025 Back pain 02/08/2025 Overview (02/08/2025): L 4-5 disc surg 11/09. f/u MRI 11/13 H. pylori infection 02/08/2025 Overview (02/08/2025): positive breath test 10/14/07, helidac rx by GI for 10-14 days, recheck breath test 6 wks after rx, off PPI's for 6 wks before test positive breath test after treatment 07/07/07, retreatment rx 07/08/07 seen on biopsies with endoscopy 04/20/07 Depression 02/08/2025 Assessment & Plan (02/09/2025 11:08 AM EDT): No SI/HI today Based on assessment pt having a lot of anxiety surround new medical diagnosis and would benefit from talking to a professional Pt referred today Orders: Referral to Behavioral Health; Future Acid reflux 02/08/2025 Gastritis 02/08/2025 Overview (02/08/2025): chronic mild gastritis on biopsies during endoscopy Type 2 diabetes mellitus 02/08/2025 Assessment & Plan (02/27/2025 5:04 PM EDT): Controlled, keep low carb/no sugar diet, no changes will be made Assessment & Plan (02/20/2025 1:17 PM EDT): Will send DME for diabetic shoes Assessment & Plan (02/09/2025 11:08 AM EDT): Lab Results Component Value Date HGBA1C 6.8 (H) 01/26/2025 Maintenance BMP: UTD Microalbumin: UTD Foot Exam: UTD Eye Exam: pending Lipid panel: UTD Statin: yes ASA: yes ELIOT/ARB: yes Treatment Goals: A1c goal: <7% FBG goal: <130 2 hour post prandial goal: <180 Advised Low sugar and Low carb diet. Counseled regarding self-monitoring of blood glucose. Counseled re: potential co-morbidities including cardiovascular disease. Counseled re: potential co-morbidities include neuropathy and retinopathy. Counseled re: potential co-morbidities include nephropathy. 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 Await pathology results from the first biopsy, which have been sent to pathology and are pending. - Referral for professional mental health support was placed to provide assistance in coping with current stressors and anxiety. Localized swelling, mass and lump, neck 01/04/20 25 Benign paroxysmal positional vertigo due to bilateral [...] side of neck 11/22/2024 Assessment & Plan (02/09/2025 11:08 AM EDT): See below Assessment & Plan (11/22/2024 12:22 PM EDT): Will order a neck ct scan and will refer to ENT Anxiety 09/26/2024 Hypertension 09/23/2024 Assessment & Plan (02/27/2025 5:03 PM EDT): Slightly above target today, but has remained stable at home, no changes will be made, follow up in 3 months Assessment & Plan (02/20/2025 1:16 PM EDT): Controlled, keep a low sodium diet and exercise as tolerated, keep blood pressure log, follow up in 3-4 months Assessment & Plan (02/09/2025 11:08 AM EDT): BP at goal <130/80 today Continue with current medications and low sodium diet Assessment & Plan (01/24/2025 9:57 AM EDT): [...] were renewed Hyperlipidemia 09/23/2024 Assessment & Plan (02/20/2025 1:15 PM EDT): On statin therapy, encouraged to keep a low cholesterol diet, last ldl stable but could improve, will follow up in 4-6 months Assessment & Plan (11/22/2024 11:55 AM EDT): [...] will continue current treatment Moderate episode of recurren t major depressive disorder (CMS/HCC) 09/23/2024 Assessment & Plan (09/23/2024 2:06 PM [...] Date Diagnosed Date Resolved Date Atrial fibrillation (CMS/HCC) 09/23/2024 09/23/2024 Encounters * This document contains information received from the source organization and may not represent a complete record from that organization. Date Type Department Care Team Description 03/13/2025 Orders Only [facility] External Provider, [facility] 02/28/2025 Telephone [facility] [address] [place] [address] Donta Mike MD VNA Referral 02/27/2025 2:30 PM EDT Office Visit [facility] [address] [place] [address] Donta Mike MD Primary hypertension (Primary Dx); Type 2 diabetes mellitus without complication, without long-term current use of insulin (HCC); Squamous cell carcinoma of skin of scalp and neck 02/27/2025 Travel 02/23/2025 Telephone [facility] [address] [place] [address] Donta Mike MD chart prep 02/21/2025 Refill [facility] [address] [place] [address] Ainsley Hayward MD 02/08/2025 2:45 PM EDT Office Visit [facility] [address] [place] [address] Wang Lynch CNP Encounter for physical examination (Primary Dx); Type 2 diabetes mellitus without complication, without long-term current use of insulin (HCC); Primary hypertension; Recurrent major depressive disorder, in partial remission (CMS/HCC); Encounter for immunization; Encounter for vaccination; Mass of right side of neck; Neoplasm of thyroid; Mixed hyperlipidemia 02/08/2025 Travel 02/08/2025 Telephone [facility] [address] [place] [address] Donta Mike MD chart prep 01/30/2025 Orders Only GENERIC EXTERNAL DATA DEPARTMENT Provider, Generic External Data 01/26/2025 Orders Only [facility] [address] [place] [address] Donta Mike MD 01/24/2025 9:00 AM EDT Telemedicine [facility] [address] [place] [address] Donta Mike MD Type 2 diabetes mellitus without complication, without long-term current use of insulin (CMS/HCC) (Primary Dx); Primary hypertension; Seborrheic dermatitis 01/24/2025 Travel 01/23/2025 Telephone [facility] [address] [place] [address] Donta Mike MD Lab Orders 01/23/2025 Telephone [facility] [address] [place] [address] Donta Mike MD chart prep 01/16/2025 3:30 PM EDT Office Visit [facility] [address] [place] [address] Ainsley Hayward MD Chronic low back pain with bilateral sciatica, unspecified back pain laterality (Primary Dx) 01/16/2025 Travel 01/16/2025 Telephone [facility] [address] [place] [address] Donta Mike MD Nurse Triage 01/12/2025 Refill [facility] [address] [place] [address] Donta Mike MD 12/30/2024 Telephone [facility] [address] [place] [address] Donta Mike MD RV APPT 12/26/2024 9:45 AM EDT Telemedicine [facility] [address] [place] [address] Donta Mike MD Mixed hyperlipidemia (Primary Dx); Dietary counseling; Exercise counseling; Primary hypertension; Albuminuria; Type 2 diabetes mellitus with diabetic microalbuminuria, without long-term current use of insulin (CMS/[facility]) 12/26/2024 Travel 12/23/2024 Telephone [facility] [address] [place] [address] Donta Mike MD chart prep 12/22/2024 Travel 12/20/2024 Telephone [facility] [address] [place] [address] Donta Mike MD Referral 12/20/2024 Telephone [facility] [address] [place] [address] Donta Mike MD Referral 12/14/2024 Telephone [facility] [address] [place] [address] Donta Mike MD concerns 12/14/2024 Orders Only [facility] [address] [place] [address] Donta Mike MD Abdominal aortic aneurysm (AAA) without rupture, unspecified part ([facility]) (Primary Dx) 12/14/2024 Telephone [facility] [address] [place] [address] Donta Mike MD INCIDENTAL FINDING from Last 3 Months Immunizations Immunization Administration Dates Next Due Influenza Whole 02/07/2009,05/14/2006 Influenza, seasonal, injectable, preservative fr ee 02/08/2025 Pfizer Covid-19 Vaccine 12+ 02/08/2025 Pneumococcal Conjugate PCV 20 02/08/2025 Pneumococcal Polysaccharide PPSV23 05/14/2006 Td (adult), unspecified 02/07/2009 Tdap 02/08/2025 Family History Medical History Relation Name Comments Diabetes Father Prostate cancer Father Coronary artery disease Mother Diabetes Mother Hypertension Mother Relation Name Status Comments Father Mother Social History Tobacco Use Types Packs/Day Years Used Date Smoking Tobacco: Every Day Cigarettes 0.5 43.8 Started: 1981 Smokeless Tobacco: Never Tobacco Cessation:Ready to Q uit: Not Asked; Counseling Given: Not Answered Alcohol Use Standard Drinks/Week Comments Never 0 (1 standard drink = 0.6 oz pur e alcohol) Depression Answer Date Recorded Patient Health Questionnaire-9 Score 15 02/17/2025 Patient Health Questionnaire-9 Score 15 02/17/2025 Last PHQ-9: Questionnaire Data Not on file 1 Housing Stability Answer Date Recorded What is [...] Date Recorded Patient Health Questionnaire-2 Score 4 02/17/2025 Internet Access Answer Date Recorded Internet Access [...] Sign Reading Time Taken Comments Blood Pressure 147/84 02/27/2025 2:32 PM EDT Pulse 74 02/27/2025 2:32 PM EDT Temperature 37.1 C (98.7 F) 02/27/2025 2:32 PM EDT Respiratory Rate 20 02/27/2025 2:32 PM EDT Oxygen Saturation 98% 02/08/2025 2:44 PM EDT Inhaled Oxygen Concentration - - Weight 86.2 kg (190 lb) 02/27/2025 2:32 PM EDT Height 186.7 cm (6' 1.5 ) 02/27/2025 2:32 PM EDT Body Mass Index 24.73 02/27/2025 2:32 PM EDT Plan of Treatment Health Maintenance Due Date Last Done Comments CT Colonography 1960 Colonoscopy 1960 Colorectal Cancer Screening 1960 FIT DNA/Cologuard 1960 FIT 1960 FOBT 1960 Sigmoidoscopy 1960 Derm Melanoma Skin Check 04/25/1962 Eye Exam 10/25/1971 Zoster Vaccines (1 of 2) 10/25/2011 RSV Patients and Patients Aged 60 years or older (1 - Risk 60-74 years 1-dose series) 2021 Diabetes: Hemoglobin A1C 07/26/2025 025, 11/22/2024 Depression Monitoring 08/18/2025 02/17/2025 , 02/17/2025 Alcohol/Substance Use Screening 09/22/2025 09/22/2024 SDOH Screening 09/22/2025 09/22/2024 Diabetes: Foot Exam 11/08/2025 11/08/2024 Lung Cancer Screening 12/09/2025 12/09/2024 Tobacco Screening 01/16/2026 01/16/2025 Lipid Panel 01/26/2026 01/26/2025, 11/28/2024 Disability Screening 02/08/2026 02/08/2025 DTaP/Tdap/Td Vaccines (2 - T d or Tdap) 02/08/2035 02/08/2025, 02/07/2009 HIV Screening Completed 01/26/2025, 11/28/2024 Hepatitis C Screening Completed 01/26/2025 , 11/28/2024 COVID-19 Vaccine Completed 02/08/2025 Influenza Vaccine Completed 02/08/2025, 02/07/2009, 05/14/2006 Pneumococcal Vaccine: 50+ Years Completed 02/08/2025, 05/14/2006 HIB Vaccines Aged Out No longer eligi [...] Procedure Name Priority Date/Time Associated Diagnosis Comments US SCROTUM Routine 03/13/2025 12:35 PM EST POCT GLUCOSE Routine 02/27/2025 2:33 PM EDT Type 2 diabetes mellitus without complication, without long-term current use of insulin (HCC) POCT GLUCOSE Routine 02/08/2025 2:45 PM EDT Type 2 diabetes mellitus without complication, without long-term current use of insulin (HCC) GROSS AND MICROSCOPIC LEVEL 4 Routine 01/30/2025 [...] 2 diabetes mellitus without complication, 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) CBC WITH AUTO DIFFERENTIAL Routine 01/26/2025 3:39 PM EDT Type 2 diabetes mellitus without complication, 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 fdc insulin use (CMS/HCC) CT SOFT TISSUE NECK W CONTRAST Routine 12/20/2024 7:56 AM EDT Mass of right side of neck LDCT LUNG SCREENING Routine 12/09/2024 9 :21 AM EDT from Last 3 Months or Most Recently Relevant to Health Maintenance Results * US Scrotum (03/13/2025 12:35 PM EST) Anatomical Region Laterality Modality Body Ultrasound 03/13/2025 12:3 5 PM EST Narrative 03/13/2025 1:02 PM EST [address] [address] Ultrasound Report Signed Patient: Javed Kirkpatrick MR#: [id number] : 1960 Acct:[id number] Age/Sex: 64 / M ADM Date: 03/13/25 Loc: HO.US Attending Dr: Rekha KERNS Ordering Physician: Rekha Guillen Date of Service: 03/13/25 Procedure(s): US scrotum Accession Number(s): [id number] cc: Donta Mike MD; Rekha Guillen Reason for Exam: N45.1 - Epididymitis EXAMINATION: US SCROTUM HISTORY: N45.1 - Epididymitis. COMPARISON: There are no prior studies available for comparison. FINDINGS: Real-time grayscale ultrasound imaging of the scrotum was performed. RIGHT TESTICLE: The right testis measures 4.1 x 2.1 x 3.5 cm and demonstrates normal homogeneous echotexture. No masses are seen. The right testis demonstrates normal color Doppler flow. RIGHT EPIDIDYMIS: Normal in size, shape, and vascularity. There is a 4 mm epididymal head cyst. LEFT TESTICLE: The left testis measures 3.7 x 1.7 x 3.2 cm and demonstrates normal homogeneous echotexture. No masses are seen. The left testis demonstrates normal color Doppler flow. There are left extratesticular calcifications. LEFT EPIDIDYMIS: The left epididymal body and tail are not well visualized. There is a 2 mm epididymal head cyst. VARICOCELE: None. HYDROCELE: No significant hydrocele is seen. OTHER COMMENTS: None. US/US scrotum IMPRESSION: Bilateral epididymal head cysts. Otherwise unremarkable scrotal ultrasound. Electronically signed by: Lyle Treadwell MD 03/13/2025 01:00 PM EST Dictated By: Lyle Treadwell MD Signed By: <Electronically signed by Lyle Treadwell MD in OV> 03/13/25 1300 DD/ 1235 TD/TT: 03/13/25 1241 Rehab Department Manager: Procedure Note Donotuseinterpreter, Image - 03/13/2025 [place] [address] Ultrasound Report Signed Patient: Javed Kirkpatrick MR#: [id number] : 2Acct:[id number] Age/Sex: 64 / MADM Date: 03/13/25 Loc: HO.US Attending Dr: Rekha KERNS Ordering Physician: Rekha Guillen Date of Service: 03/13/25 Procedure(s): US scrotum Accession Number(s): [id number] cc: Donta Mike MD; Rekha Guillen Reason for Exam: N45.1 - Epididymitis EXAMINATION: US SCROTUM HISTORY: N45.1 - Epididymitis. COMPARISON: There are no prior studies available for comparison. FINDINGS: Real-time grayscale ultrasound imaging of the scrotum was performed. RIGHT TESTICLE: The right testis measures 4.1 x 2.1 x 3.5 cm and demonstrates normal homogeneous echotexture. No masses are seen. The right testis demonstrates normal color Doppler flow. RIGHT EPIDIDYMIS: Normal in size, shape, and vascularity. There is a 4 mm epididymal head cyst. LEFT TESTICLE: The left testis measures 3.7 x 1.7 x 3.2 cm and demonstrates normal homogeneous echotexture. No masses are seen. The left testis demonstrates normal color Doppler flow. There are left extratesticular calcifications. LEFT EPIDIDYMIS: The left epididymal body and tail are not well visualized. There is a 2 mm epididymal head cyst. VARICOCELE: None. HYDROCELE: No significant hydrocele is seen. OTHER COMMENTS: None. US/US scrotum IMPRESSION: Bilateral epididymal head cysts. Otherwise unremarkable scrotal ultrasound. Electronically signed by: Lyle Treadwell MD 03/13/2025 01:00 PM EST Dictated By: Lyle Treadwell MD Signed By: <Electronically signed by Lyle Treadwell MD in OV> 03/13/25 1300 DD/ 1235 TD/TT: 03/13/25 1241 Rehab Department Manager: [facility] External Provider IMG US PROCEDURES Edited Result - Final * POCT Glucose (02/27/2025 2:33 PM EDT) Only the most recent of2 resultswithin the time period is included. Glucose Blood, POC 175 60 - 200 mg/dL QC Media Lot # [id number] Lot# Expiration Date Blood Capillary blood specimen / Unknown 02/27/2025 2:33 PM EDT Donta Avalos MD POINT OF CARE TEST ENTER/EDIT ORDERABLES Final Result * Gross and Microscopic Level 4 (01/30/2025 12:00 PM EDT) 01/30/2025 12:0 0 PM EDT 01/30/2025 1:30 PM EDT Narrative [facility] - 02/07/2025 9:21 AM EDT ----- ------- Name: Javed Kirkpatrick Age/Sex: 64/M : 1960 Unit#: [id number] Attend Dr: John Avalos DO Re01/30/25 [place] [facility] [place] [facility] Disch: ----- ------- SPEC : [id number] RECD: 01/30/25 STATUS: RENAN ORELLANA NUM: [id number] REGGIE: 01/30/25-[address] [facility] [address]: Miguel Bermudez MD ENTERED: 01/30/25 SP TYPE: Surgical OTHR DR: Donta Mike MD, Daniel H DO ORDERED: Gross Micro L4, IHC, Add. immunos/2, p16, p40, p63 Addendum Addendum 2 Entered: 02/07/25 The tumor cells are immunoreactive with p63; no change is made to the diagnosis. Addendum Signed (signature on file) Linden Maher MD 02/07/25920 ----- ------- Addendum 1 Entered: 02/02/25 The tumor cells [...] the tumor cells are reactive with p40. CONTINUED ON NEXT PAGE ----- ------- Name: Javed Kirkpatrick Age/Sex: 64/M : 1960 Unit#: [id number] Attend Dr: John Avalos DO Re01/30/25 [address]: [facility] Location: [facility] Disch: ----- ------- SPEC : [id number] RECD: 01/30/25 STATUS: RENAN ORELLANA NUM: [id number] REGGIE: 01/30/25-[address]: Miguel Bermudez MD ENTERED: 01/30/25 SP TYPE: Surgical OTHR DR: Donta Mike MD, Daniel H DO ORDERED: Gross Micro L4, IHC, Add. immunos/2, p16, p40, p63 Material Received Lymph node in right neck Gross Description Received in formalin labeled lymph node in right neck are cylindrical portions of pink white soft tissue measuring 0.3-0.9 cm in length all with a diameter of 0.05 cm which are wrapped in lens paper and entirely submitted for microscopic examination, 4 pieces in cassette A1 and 3 pieces in cassette A2. ([facility]) This case was reviewed intradepartmentally; results discussed with Dr. Avalos on 02/02/2025 Special studies ordered and performed: Immunostains for p40 IHC S/NG Disclaimer NOTE: Unless otherwise stated, all tissue is formalin-fixed and paraffin-embedded. Some or all of the immunohistochemical tests reported herein may have been developed and their performance characteristics determined by [facility]. They have not been cleared or approved by the U.S. Food and Drug Administration (FDA). However, the FDA has determined that such clearance or approval is not necessary. This laboratory is certified under the Clinical Laboratory Improvement Amendments of 1988 (CLIA) as qualified to perform high complexity clinical laboratory testing. Copies To: Donta Mike MD [facility] [address], [place] [id number] John Avalos DO [facility] [address] [address] Miguel Bermudez MD [address] [place] [phone] CONTINUED ON NEXT PAGE ----- ------- Name: Hannah FitzgeraldJaved Age/Sex: 64/M : 1960 Unit#: [id number] Attend Dr: John Avalos DO Re01/30/25 [place]: [facility] [place] Location: [place] Disch: ----- ------- SPEC : [id number] RECD: 01/30/25 STATUS: RENAN ORELLANA NUM: [id number] REGGIE: 01/30/25-[address]: Miguel Bermudez MD ENTERED: 01/30/25 SP TYPE: Surgical OTHR DR: Mark Avalos,John Trevizo MD, DO ORDERED: Gross Micro L4, IHC, Add. immunos/2, p16, p40, p63 ----- ------- Signed (signature on file) Linden Maher MD 02/02/25 0924 ----- ------- END OF REPORT us Generic External Data Provider LAB CYTOLOGY DANIELA SHELL Final Result [facility] [address] [place] [phone] * CT Guided Percutaneous Biopsy Muscle (01/30/2025 12:00 PM EDT) Anatomical Region Laterality Modality Body Computed Tomogra phy 01/30/2025 12:0 0 PM EDT Narrative 01/31/2025 7:08 AM EDT [place] [address] CT Scan Report Signed Patient: Javed Kirkpatrick MR#: [id number] : 1960 Acct:[id number] Age/Sex: 64 / M ADM Date: 01/30/25 Loc: HO.[facility] Attending Dr: John Avalos DO Ordering Physician: John Avalos DO Date of Service: 01/30/25 Procedure(s): CT biopsy muscle Accession Number(s): [id number] cc: Donta Mike MD; John Avalos DO Report Number: [id number]: Total DLP = 340.00 mGy-cm Reason for [...] 01/31/25 0705 DD/ 1200 TD/TT: 01/30/25 1323 Rehab Department Manager: [facility] [place] Procedure Note Donotuseinterpreter, Image - 01/31/[address] [place] [address] [address] Scan Report Signed Patient: Javed Kirkpatrick MR#: [id number] : 1960cct:[id number] Age/Sex: 64 / MADM Date: 01/30/25 Loc: HO.[facility] Attending Dr: John Avalos DO Ordering Physician: John Avalos DO Date of Service: 01/30/25 Procedure(s): CT biopsy muscle Accession Number(s): [id number] cc: Donta Mike MD; John Avalos DO Report Number: [id number]: Total DLP = 340.00 mGy-cm Reason for [...] 01/31/25 0705 DD/ 1200 TD/TT: 01/30/25 1323 Rehab Department Manager: ANDREW [facility] External Provider IMG CT PROCEDURES Final Result * CT Guided Imaging for Needle Placement (01/30/2025 12:00 PM EDT) Anatomical Region Laterality Modality Computed Tomogra phy 01/30/2025 12:0 0 PM EDT Narrative 01/31/2025 7:08 AM EDT [address] [address] [address] Scan Report Signed Patient: Javed Kirkpatrick MR#: [id number] : 1960 Acct:[id number] Age/Sex: 64 / M ADM Date: 01/30/25 Loc: .SSS Attending Dr: John Avalos DO Ordering Physician: John Avalos DO Date of Service: 01/30/25 Procedure(s): CT guided needle placement Accession Number(s): [id number] cc: Donta Mike MD; John Avalos DO Report Number: [id number]: Total DLP = 340.00 mGy-cm Reason for [...] 01/31/25 0705 DD/ 1200 TD/TT: 01/30/25 1323 Rehab Department Manager: [facility] [place] Note Donotuseinterpreter, Image - 01/31/[address] [address] [address] Scan Report Signed Patient: Javed Kirkpatrick MR#: [id number] : 2Acct:[id number] Age/Sex: 64 / MADM Date: 01/30/25 Loc: .[facility] Attending Dr: John Avalos DO Ordering Physician: John Avalos DO Date of Service: 01/30/25 Procedure(s): CT guided needle placement Accession Number(s): [id number] cc: Donta Mike MD; John Avalos DO Report Number: [id number]: Total DLP = 340.00 mGy-cm Reason for [...] MD Signed By: <Electronically signed by Miguel Berumdez MD in OV> 01/31/25 0705 DD/ 1200 TD/TT: 01/30/25 1323 Rehab Department Manager: ANDREW [facility] External Provider IMG CT PROCEDURES Final Result * Glucose, Whole Blood (01/30/2025 9:40 AM EDT) Pathologist [facility] Glucose, Whole Blood 108 60 - 115 mg/dL [facility] Comment:METER #: [id number] 01/30/2025 9:40 AM EDT 01/30/2025 9:49 AM EDT Generic External Data Provider LAB BLOOD ORDERAB LES Final Result [facility] [address] [place] [phone] * (ABNORMAL) CBC auto differential (01/30/2025 9:10 AM EDT) Only the most recent of2 resultswithin the time period is included. Pathologist [facility] White Blood Count 7.0 4.8 - 10.8 X10*3/uL [facility] Red Blood Count 4.61 4.60 - 5.80 X10*6/uL [facility] Hemoglobin 14.0 14.0 - 18.0 g/dl [facility] Hematocrit 42.0 42.0 - 52.0 % [facility] Mean Corpuscular Volume 91.1 80.0 - 98.0 fL [facility] Mean Corpuscular Hemoglobin 30.4 27.0 - 33.0 pg [facility] Mean Corpuscular HGB Conc 33.3 31.0 - 36.0 g/dl [facility] Red Cell Distribution Width 14.8 11.0 - 16.0 % [facility] Platelet Count 212 160 - 400 X10*3/uL [facility] Mean Platelet Volume 11.0 9.4 - 12.4 fL [facility] Neutrophils Percent Auto 53.0 45 - 73 % [facility] Imm Gran Pct Auto 0.7(H) 0.0 - 0.4 % [facility] Lymphocytes Percent Auto 35.5 20 - 40 % [facility] Monocytes Percent Auto 8.8 2 - 11 % [facility] Eosinophils Percent Auto 1.4 0 - 4 % [facility] Basophils Percent Auto 0.6 0 - 2 % [facility] NRBC Pct Auto 0.0 0.0 - 0.2 /100WBC [facility] Neutrophils Absolute Auto 3.7 2.0 - 8.3 x10*3/uL [facility] Imm Gran Abs Auto 0.05(H) 0.00 - 0.03 X10*3/uL [facility] Lymphocytes Absolute Auto 2.5 1.2 - 4.9 X10*3/uL [facility] Monocytes Absolute Auto 0.6 0.1 - 1.2 X10*3/uL [facility] Eosinophils Absolute Auto 0.1 0.0 - 0.4 X10*3/uL [facility] Basophils Absolute Auto 0.0 0.0 - 0.2 X10*3/uL [facility] NRBC Abs Auto 0.000 0.0 - 0.012 X10*3/uL [facility] 01/30/2025 9:10 AM EDT 01/30/2025 9:14 AM EDT us Generic External Data Provider LAB BLOOD ORDERAB LES Final Result [facility] [address] [place] [phone] * Prothrombin Time-INR (01/30/2025 9:10 AM EDT) Prothrombin Time 11.3 10.9 - 12.4 SEC [facility] INTERNATIONAL NORM RATIO 1.0 0.9 - 1.1 [facility] Comment:INTERNATIONAL NORMAL IZED RATIO (INR) REFERENCE [...] ORDERAB LES Final Result Performing Organization Address [facility]/ZIP Co de Phone Number [facility] [address] [place] [phone] * Type and screen (01/30/2025 9:10 AM EDT) Blood Type OP [facility] Antibody Screen NEGATIVE [facility] 01/30/2025 9:10 AM EDT 01/30/2025 9:16 AM EDT Generic External Data Provider LAB BLOOD BANK TE ST ORDERABLES Final Result Performing Organization Address [facility]/ZIP Co de Phone Number [facility] [address] [place] [phone] * T-SPOT??.TB (01/26/2025 3:39 PM EDT) T Spot TB Negative Negative [facility] Comment:A negative test resu lt does [...] as aquantitative test. TS PANEL A 2 [facility] TS PANEL B 0 [facility] Negative Control Passed [facility] Positive Control Passed [facility] Comment:For additional infor mation, please refer tohttp://education.[employer] ([place])/faq/STC118(This link is being provided for informational/educational purposes only.)THIS TEST WAS PERFORMED AT:[employer] [id number] [place] [id number] W. MASON,MD,PHD 01/26/2025 3:39 PM EDT 01/26/2025 5:45 PM EDT Donta Avalos MD LAB BLOOD ORDERABL ES Final Result Performing Organization Address City/[facility]/ZIP Co de Phone Number [facility] [address] [place] [phone] * TSH with Reflex to Free T4 (01/26/2025 3:39 PM EDT) TSH reflex Free T4 0.32 0.32 - 4.0 uIU/mL [facility] 01/26/2025 3:39 PM EDT 01/26/2025 5:45 PM EDT Donta Avalos MD LAB BLOOD ORDERABL ES Final Result Performing Organization Address City/[facility]/ZIP Co de Phone Number [facility] [address] [place] [phone] * Albumin, Random Urine W/Creatinine (01/26/2025 3:39 PM EDT) Creatinine, Urine 37.81 mg/dL [facility] Microalbumin Urine <5.0 mg/L [facility] Microalbum Creatinine Ratio Ur TNP <30 ug/mg cr [facility] Comment:Unable to calculate albumin/creatinine ratio due to lowmicroalbumin or creatinine result. 01/26/2025 3:39 PM EDT 01/26/2025 4:03 PM EDT Donta Avalos MD LAB URINE ORDERABL ES Final Result Performing Organization Address [facility]/ZIP Co de Phone Number [facility] [address] [place] [phone] * Hepatitis C Antibody with Reflex to HCV, RNA, Quantitative, Real-Time PCR (01/26/2025 3:39 PM EDT) Pathologist [facility] Hepatitis C Antibody Nonreactive Nonreactive [facility] Comment:Antibodies to HCV no t detected; does not exclude early acuteHCV infection. 01/26/2025 3:39 PM EDT 01/26/2025 5:45 PM EDT Donta Avalos MD LAB BLOOD ORDERABL ES Final Result Performing Organization Address [facility] Co de Phone Number [facility] [address] [place] [phone] * HIV-1/2 Antigen and Antibodies, Fourth Generation, with Reflexes (01/26/2025 3:39 PM EDT) HIV AB/AG Nonreactive Nonreactive [facility] Comment:HIV-1 p24 Ag and/or HIV-1/HIV-2 Ab not detected.A test result that is nonreactive does not exclude thepossibility of exposure to or infection with HIV-1 and/orHIV-2. Nonreactive results in this assay for individualswith prior exposure to HIV-1 and/or HIV-2 may be due toantigen and antibody levels that are below the limit ofdetection of this assay.The [employer] HIV Ag/Ab Combo assay result andsupplemental assay results should be interpreted inconjunction with the patient's clinical presentation,history and other laboratory results. If the results areinconsistent with clinical evidence, additional testing issuggested to confirm the result. 01/26/2025 3:39 PM EDT 01/26/2025 5:45 PM EDT Donta Avalos MD LAB BLOOD ORDERABL ES Final Result Performing Organization Address [facility]/ZIP Co de Phone Number [facility] [address] [place] [phone] * (ABNORMAL) Hemoglobin A1c (01/26/2025 3:39 PM EDT) Hemoglobin A1c 6.8(H) <6.0 % [facility] Comment:Hemoglobin A1C Refer ence Range Adults: 4.8 - 6.0 % Non diabetic: < 6.0 % Goal: < 7.0 %Additional Action Suggested: > 8.0 %Note: Hemoglobin A1c results are invalid for patients with abnormal amounts of HbF. Blood transfusions may impact the HbA1c concentration in the patient sample. Estimated Average Glucose 148 mg/dL [facility] Comment:eAG = Estimated ave rage glucose which is %A1C expressed asaverage glucose, using the formula of the G3Q-GmitueyZorkqpr Glucose study (ADAG), Diabetes Care, Vol.31,#8,Dec. 2007 Blood Venous blood specimen / Unknown 01/26/2025 3:39 PM EDT 01/26/2025 5:45 PM EDT Donta Avalos MD LAB BLOOD ORDERABL ES Final Result Performing Organization Address [facility]/ZIP Co de Phone Number [facility] [address] [place] [phone] * Lipid Panel, Standard (01/26/2025 3:39 PM EDT) Triglycerides 109 <150 mg/dL [facility] Comment:Slight Lipemia.Brie able Triglyceride: less than 150 mg/dLBorderline High Triglyceride 150-199 mg/dLHigh Triglyceride: 200-499 mg/dLVery High Triglyceride: greater than or equal to 5OO mg/dL Cholesterol 153 <200 mg/dL [facility] Comment:Desirable Cholestero l: less than 200 mg/dLBorderline High Cholesterol: 200-239 mg/dLHigh Cholesterol: greater than 239 mg/dL LDL Cholesterol Calculated 82 <100 mg/dL [facility] Comment:Desirable LDL: less than 100 mg/dLNear Optimal/Above Optimal LDL: 110- 129 mg/dLBorderline High LDL: 130-159 mg/dLHigh LDL: 160-189 mg/dLVery High LDL: greater than or equal to 190 mg/dL HDL Cholesterol 50 >40 mg/dL [facility] Comment:Desirable HDL: great er than 40 mg/dL Note: This HDL assay may give artificially low results in patients with liver disease. 01/26/2025 3:39 PM EDT 01/26/2025 5:45 PM EDT Donta Avalos MD LAB BLOOD ORDERABL ES Final Result [facility] [address], [place] [phone] * (ABNORMAL) Comprehensive Metabolic Panel (01/26/2025 3:39 PM EDT) Sodium 141 135 - 145 mmol/L [facility] Potassium 4.0 3.3 - 5.1 mmol/L [facility] Chloride 105 96 - 108 mmol/L [facility] Carbon Dioxide 28 22 - 29 mmol/L [facility] Anion Gap 12 12 - 20 [facility] Urea Nitrogen (BUN) 18(H) 9 - 16 mg/dL [facility] Creatinine, Serum 0.98 0.5 - 1.4 mg/dL [facility] Estimated Glomerular Filt Rate >60 [facility] Comment:Chronic Kidney Disea se: Estimated GFR < 60 mL/min/1.52l0Raheqn Kidney Disease: Estimated GFR < 15 mL/min/1.73m2 Glucose 230(H) 60 - 115 mg/dL [facility] Calcium 9.4 8.4 - 10.2 mg/dL [facility] Bilirubin, Total 0.2 0.0 - 1.0 mg/dL [facility] Aspartate Amino Transferase 35 5 - 37 U/L [facility] Alanine Aminotransferase 35 0 - 40 U/L [facility] Total Protein 7.5 6.5 - 8.0 g/dL [facility] Albumin Level 4.7 3.5 - 5.0 g/dL [facility] Alkaline Phosphatase 55 39 - 117 U/L [facility] Blood Venous blood specimen / Unknown 01/26/2025 3:39 PM EDT 01/26/2025 5:45 PM EDT us Donta Avalos MD LAB BLOOD ORDERABL ES Final Result Performing Organization Address City/State/[facility] Co de Phone Number [facility] [address] [place] [phone] * CT Soft Tissue Neck w/ Contrast (12/20/2024 7:56 AM EDT) Anatomical Region Laterality Modality Head, Neck Computed Tomogra phy 12/20/2024 7:56 AM EDT Narrative 12/20/2024 8:47 AM EDT [address] [address] [address] Scan Report Signed with Addenda Patient: Javed Kirkpatrick MR#: [id number] : 1960 Acct:[id number] Age/Sex: 64 / M ADM Date: 12/20/24 Loc: HO.CT Attending Dr: Donta Avalos MD Ordering Physician: Donta Mike MD Date of Service: 12/20/24 Procedure(s): CT soft tissue neck w IV con Accession Number(s): [id number] cc: Donta Mike MD Report Number: [id number]: Total DLP = 316.00 mGy-cm ADDENDUM ADDENDUM #1 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 Electronically signed by: Javed Miller MD 12/20/2024 11:12 AM EDT RP Addendum Dictated By: Javed Trinidad MD Addendum Signed By: <Electronically signed by Javed Trinidad MD in OV> 12/20/24 111 Addendum [...] palatine tonsils, right greater than left side. Preparer Making Department spaces, parapharyngeal spaces demonstrated no gross masses. [...] 12/20/24 0844 DD/ 0756 TD/TT: 12/20/24 0816 Rehab Department Manager: Procedure Note Donotuseinterpreter, Image - 12/20/[address] [address] [address] Scan Report Signed with Addenda Patient: Javed Kirkpatrick MR#: [id number] : 2Acct:[id number] Age/Sex: 64 / MADM Date: 12/20/24 Loc: HO.CT Attending Dr: Donta Avalos MD Ordering Physician: Donta Mike MD Date of Service: 12/20/24 Procedure(s): CT soft tissue neck w IV con Accession Number(s): [id number] cc: Donta Mike MD Report Number: [id number]: Total DLP = 316.00 mGy-cm ADDENDUM ADDENDUM [...] palatine tonsils, right greater than left side. Preparer Making Department spaces, parapharyngeal spaces demonstrated no gross masses. [...] 12/20/24 0844 DD/ 0756 TD/TT: 12/20/24 0816 Rehab Department Manager: Donta Avalos MD IMG CT PROCEDURES Edited Result - Final * CT Lung Screening Low dose (12/09/2024 9:21 AM EDT) Anatomical Region Laterality Modality Lung Computed Tomogra phy 12/09/2024 9:21 AM EDT Narrative 12/09/2024 10:02 AM EDT [place] [address] CT Scan Report Signed Patient: Javed Kirkpatrick MR#: [id number] : 1960 Acct:[id number] Age/Sex: 64 / M ADM Date: 12/09/24 Loc: HO.CT Attending Dr: Nicole Whittington PA-C Ordering Physician: Nicole Whittington PA-C Date of Service: 12/09/24 Procedure(s): CT lung screening Accession Number(s): [id number] cc: Donta Mike MD; Nicole Whittington PA-C Report Number: [id number]: Total DLP = 58.00 mGy-cm EXAMINATION: CT [...] for CT CHEST LOW DOSE CANCER SCREENING ([id number]) can be placed. Electronically signed by: Robb Veronica MD 12/09/2024 09:59 AM EDT Dictated By: Robb Veronica MD Signed By: <Electronically signed by Robb Veronica MD in OV> 12/09/24 0959 DD/ 0 TD/TT: 12/09/2437 Rehab Department Manager: Procedure Note Donotuseinterpreter, Image - 12/09/[address] [address] [address] Scan Report Signed Patient: Javed Kirkpatrick MR#: [id number] : 2Acct:[id number] Age/Sex: 64 / MADM Date: 12/09/24 Loc: HO.CT Attending Dr: Nicole Whittington PA-C Ordering Physician: Nicole Whittington PA-C Date of Service: 12/09/24 Procedure(s): CT lung screening Accession Number(s): [id number] cc: Donta Mike MD; Nicole Whittington PA-C Report Number: [id number]: Total DLP = 58.00 mGy-cm EXAMINATION: CT [...] for CT CHEST LOW DOSE CANCER SCREENING ([id number]) can be placed. Electronically signed by: Robb Veronica MD 12/09/2024 09:59 AM EDT Dictated By: Robb Veronica MD Signed By: <Electronically signed by Robb Veronica MD in OV> 12/09/24 0959 DD/ 0921 TD/TT: 12/09/24 0937 Rehab Department Manager: [facility] External Provider IMG CT PROCEDURES Final Result from Last 3 Months or Most Recently Relevant to Health Maintenance Insurance [facility] [employer] < 65 [employer] Care Teams Senior Partner Relationship Specialty Start Date End Date Donta Mike MD [address] [place] [phone] PCP - General Internal Medicine 08/30/24
--- OUTSIDE RECORDS SUMMARY | 2025-03-13 15:32 | XMS_ITS | Data Portability ---
Author Organization [place] - [facility], Allergy Address [address] [address] Care Team Providers Care Supervisor Dry Cleaning Name Role Phone DONTA SHAH Primary Care Provider [phone] DONTA SHAH Referring Provider [phone] Assessment Encounter Date Assessment Date Assessment LastModified by Organization Details LastModified Time 01/03/2025 01/03/2025 64M [place] speaking with history of growing right neck mass right Level II. It is firm and non mobile. Have some concern for malignancy vs less likely atypical infection. [facility]. Doesnt have report or disc. Will have this sent over. 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 He previously had a CT scan that demonstrated some right AE fold abnormality, although I did did not see a specific lesion during prior bedside flexible laryngoscopy. We had a discussion about the findings and he is aware of this. I discussed that depending on the results of the PET scan and biopsies these will determine our future course which could include surgical intervention versus potential chemoradiotherapy . After reviewing their history and discussing the physical exam, including office fiberoptic laryngoscopy, I recommend we proceed to the operating room for direct laryngoscopy with biopsy. Risks include bleeding, infection, pain, airway fire, and damage to surrounding structures, including the lips, teeth, gums, tongue, palate, oropharynx, larynx, and trachea. If biopsy of the vocal cords is performed, there is a risk of scarring, temporary or permanent dysphonia, or the need for further airway-related procedures. There is also the possibility of further intervention to support the airway, such as tracheotomy. Pending results of pathology, further treatment planning may be discussed, including additional surgery or referral to the appropriate care team - Plan for DLB with directed biopsies - CT Chest with contrast ordered - PET Scan ordered - Referral to medical and radiation oncology. - RV in 2 weeks PO [email or web address] Not available 02/02/2025 10:04:10 03/06/2025 03/06/2025 64M [place] speaking (video Cma Or Lpn - [id number]) with history of growing right neck mass right Level II (4cm) and MNG with dominant 4.5 cm thyroid nodule on the left. USGFNA of neck + for poorly differentiated [id number] SCCa with unknown primary. He previously had a CT scan that demonstrated some right AE fold abnormality, although I did did not see a specific lesion during prior bedside flexible laryngoscopy and during operative DLB on 02/20/25. Prior directed biopsies of AE fold and BOT were negative. Updated PET scan from February 2025 showed single large level 2 right neck node with multiple smaller FDG avid nodes in the right, no other concerning update.. We are still having difficulty finding his primary. Dr. Colin, had some concern for the left tonsil at his last visit which we repeat evaluated today. Tonsils are normal again on exam today with no asymmetry. - Patient has upcoming appoint with [facility] for therapy and Med Onc for chemo - This seems to be a true unknown primary case, we had a discussion about her options including potential TORS with neck dissection in [place] vs CCRT here in [place]. We had extensive discussion of both and their risks and the process. He would like to proceed with CCRT at this time. I mentioned I will be around for surveillance after treatment - RV in 6-8 weeks after treatment after PET [email or web address] Not available 03/06/2025 14:34:56 Plan of Treatment Reminders Order Date Submit Date Provider Last Modified By Organization Details Last Modified Time Details Appointments Establish ed 15 2024 09:15A Tino Avalos, DO Not available Not available Not available Lab None recorded. Referral oncology clinic referral 2024 025 [email or web address] [facility], [address] [place], [address], 02/08/2025 10:59:47 radiation oncologis t referral 2024 025 [email or web address] Michelle Colin MD, [address] [place], [address], 02/08/2025 11:14:07 Procedures fine needle aspiratio n, ultrasoun d guided, neck mass (PROC) 2024 025 [facility] (Imaging), [address] [place], [address], 02/06/2025 10:25:37 Surgeries laryngosc opy direct, with or without tracheosc opy; diagnosti c, except (SURG) 2024 025 [email or web address] Not available 02/02/2025 10:09:20 Imaging PET-CT, skull base to mid-thigh scan - SCCa right neck 2024 025 [email or web address] [facility] [address] [place], [address], 02/09/2025 14:15:02 CT, chest, w/ contrast 2024 025 [email or web address] [facility] (Prior Auth & Scheduling), [address] [place], [address], 03/10/2025 16:20:26 Medication Orders None recorded. Patient TargetsNo targets recorded. Patient InstructionsNo instructions recorded. Reason for Referral Oncology Clinic Referral for Squamous cell carcinoma of head and/or neck Referring Physician: John Avalos, Otolaryngology, Encounter Date: 02/02/2025 Referring Physician: John Avalos, Otolaryngology, Encounter Date: 02/02/2025 Results Created Date Observation Date Name Description Value Unit Range Abnormal Flag Note LastModifiedBy Organization Detail LastModifiedTime 01/05/2012/20/2024 CT, neck, soft tissu e, w/ contr ast No observ ation record ed. [email or web address] [facility] (Medical Records) [address] [facility], [place], [address], 01/19/2025 08:44:28 01/05/2012/20/2024 CT, neck, soft tissu e, w/ contr ast No observ ation record ed. BARCODE Not Available 2024 15:21:28 02/14/20 CT, chest , w/ contr ast No observ ation record ed. [facility] (Prior Auth & Scheduling) [address] [place], [address], 02/13/2025 09:20:56 02/21/20 clini eli photo * No observ ation record ed. Not Available 08:46:43 02/29/20 PET-C T, skull base to mid-t high scan No observ ation record ed. [email or web address] [facility] [address], [place], [address], 02/28/2025 10:35:18 Result Notes None recorded. Problems Name Problem SNOMED Code Status Onset Date Resolution Date Notes Provider Name and Address Organization Details Recorded Time Mass of head and/or neck 023545233 Active [address], [address], 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 - [facility] 5 10:14:33 Neoplasm of thyroid gland 624360272 Active 025 [address]valos [address], [address], [facility] [place] 5 10:14:33 Localized enlarged lymph nodes 473513482 Active 025 John Bailey, [place] [address], [place], [address], [facility] - [facility] [place] 5 08:29:57 Squamous cell carcinoma of head and/or neck Active 025 John Bailey, [place] [address], [place], [address], [facility] - [facility] [place] 5 09:48:13 Allergic rhinitis 23945453 Active 025 John Bailey, [place] [address], [place], [address], [facility] - [facility] [place] 5 10:02:47 Malignant neoplasm of unknown origin 200721536 Active 025 John Bailey, [place] [address], [place], [address], [facility] - [facility] [place] 5 14:31:34 Problem Notes None recorded. Procedures Surgical History Date Name Laterality Status Provider Name and Address Organization Details Recorded Time 5 laryngoscopy completed John Avalos [address], [address], [facility] - [facility] 02/20/2025 08:56:30 5 FOL_normal_DHL completed John Avalos[address], [address], [facility] - [facility] 01/03/2025 10:21:54 Imaging Results None recorded. Procedure Notes None recorded. Medical Equipment None Reported. Medications Name Sig Start Date Stop Date Status Note LastModified by Organization Details LastModified Time ketoconazole 2 % shampoo APPLY TWICE A WEEK DIRECTED active Not Available Not Available No t Available Alcohol Prep Pads TEST BLOOD SUGAR BEFORE MEALS AND BEDTIME active Not Available Not Available No t Available Januvia 100 mg tablet TAKE ONE TABLET EVERY DAY active Not Available Not Available No t Available FreeStyle Lite Strips TEST BLOOD SUGAR TWICE DAILY active Not Available Not Available No t Available FreeStyle Pomeroy Lite kit TEST BLOOD SUGAR BEFORE MEALS AND BEDTIME active Not Available Not Available No t Available Easy Touch Twist Lancets 33 gauge TEST BLOOD SUGAR TWICE DAILY active Not Available Not Available No t Available Jardiance 10 mg tablet TAKE ONE TABLET EVERY DAY active Not Available Not Available No t Available Omron Blood Pressure Monitor-3 Series kit Check blood pressure on arm as directed ONCE DAILY active Not Available Not Available No t Available Vitals Date Recorded Body height Body mass index (BMI) Body weight Provider Name and Address Organization Details Last Updated DateTime 01/03/2025 193.04 cm 24.3 kg/m2 41545.47 g Annita Huff [place] - [facility] 01/03/2025 09:51:15 Date Recorded Body height Body mass index (BMI) Body weight Provider Name and Address Organization Details Last Updated DateTime 02/02/2025 193.04 cm 24.3 kg/m2 33095.47 g Joaquin Judge [place] - [facility] 02/02/2025 09:01:09 Date Recorded Body height Provider Name an d Address Organization Details Last Updated DateTime 03/06/2025 193.04 cm LENA OWEN [place] - [facility] 03/06/2025 13:56:44 Social History None recorded. Functional Status None recorded. Mental Status None recorded. Family History Nothing Reported. Medical History No medical history recorded. Past Encounters Encounter ID Performer Location Encounter Start Date Encounter Closed Date Diagnosis/Indication Diagnosis SNOMED-CT Code Diagnosis ICD10 Code Diagnosis IMO Codes Diagnosis Note [id number] John Avalos, DO [facility] [address] [address] 01/03/2025 09:34:19 01/03/2025 10:25:55 Mass of head and/or neck 187738378 R22.1 Localized enlarged lymph nodes 774016015 R59.0 [id number] John Avalos, DO [facility] [address] [place] [address] 02/02/2025 08:39:59 02/02/2025 09:58:25 Localized enlarged lymph nodes 587538052 R59.0 Squamous c ell carcinoma of head and/or neck 7849607598 C44.42 7025245 Allergic rhinitis 494675 04 J30.89 [id number] John Avalos DO [facility] [address] [place] [address] 03/06/2025 13:49:27 03/06/2025 14:45:01 Localized enlarged lymph nodes 647667122 R59.0 Squamous c ell carcinoma of head and/or neck 1337393052 C44.42 8195552 Allergic rhinitis 347860 04 J30.89 Malignant neoplasm of unknown origin 760875138 C80.1 347584 Health Concerns Section Related Observation LastModified by Organization Detai ls LastModified Time None Recorded Concern Status LastModified by Organization Details LastModified Time None Recorded Advance Directives Directive None Recorded Payers Insurance Date Sequence Insurance Name Policy Number Policy Otero Covered Member ID Otero Member ID Guarantor Name 03/06/2025 1 [facility] - DOS ON OR AFTER 2022 - MEDICARE [place]VANTAGE [place] (MEDICARE REPLACEMENT/AD VANTAGE - PPO) G Hannah Lia [id number] Javed Hannah Lia 03/06/2025 2 [place] [facility] Javed Hannah Lia [id number] Javed Hannah Lia Notes Date Note Type Note Provider Name and Address Organization Details Recorded Time 01/03/2025 text/html ROS as noted in the HPI Ref: Donta Shah MD Patient presents for evaluation of a right neck mass. Jun of this year noted seems like a neck infection, spread to pelvic and groin region. Lump feeling in throat.The lower body concerns have gone away but still feels neck Started small and started growing. No fevers, chills, night sweats, When first started had fevers but these have subsided. No issues with swallowing. John Avalos DO [address] [place] [address], [address], [place] - [facility] 01/03/2025 10:23:15 02/02/2025 text/html ROS as noted in the HPI Interval history: We did obtain an FNA of the neck mass a few days ago at [place]. We do not have the report but I did call with Dr. Maher who is the pathologist who mentioned missed metastatic squamous cell carcinoma and not lymph node, this is poorly differentiated. He is currently staining for p16. I reviewed his outside CT scan which was finally sent over, this revealed a large 4 cm level 2 neck mass on the right as well as multinodular goiter with a large left thyroid nodule 4.5 cm as well as potential mass within the right AE folds. Previously: Patient presents for evaluation of a right neck mass. Jun of this year noted seems like a neck infection, spread to pelvic and groin region. Lump feeling in throat.The lower body concerns have gone away but still feels neck Started small and started growing. No fevers, chills, night sweats, When first started had fevers but these have subsided. No issues with swallowing. Prior scooe was negatuive at [facility] John Avalos, [address], [address], [place] - [facility] 02/02/2025 10:05:11 03/06/2025 text/html ROS as noted in the HPI Interval history: Notes no changes in sxs. No hx of scalp or parotid masses previously . Mentions he saw an eye doc who wanted him to see someone in [place] to have an evaluation. But no other throat sxs. Status post direct laryngoscopy with biopsy 02/20/25: Multiple specimens of the base of tongue and the arytenoid fold were taken with no obvious carcinoma noted. PET scan from 02/28/2025 showed FDG avid right level 2 neck mass with multiple small right FDG avid cervical lymph nodes Spoke with Dr. Colin of the radiation oncology team last week. Neither of us have been able to find the primary source for this cancer. He had some concern for the left tonsil per discussion which I will evaluate again today. PV:We did obtain an FNA of the neck mass a few days ago at [place]. We do not have the report but I did call with Dr. Maher who is the pathologist who mentioned missed metastatic squamous cell carcinoma and not lymph node, this is poorly differentiated. He is currently staining for p16. I reviewed his outside CT scan which was finally sent over, this revealed a large 4 cm level 2 neck mass on the right as well as multinodular goiter with a large left thyroid nodule 4.5 cm as well as potential mass within the right AE folds. Previously: Patient presents for evaluation of a right neck mass. Jun of this year noted seems like a neck infection, spread to pelvic and groin region. Lump feeling in throat.The lower body concerns have gone away but still feels neck Started small and started growing. No fevers, chills, night sweats, When first started had fevers but these have subsided. No issues with swallowing. Prior scooe was negatuive at [facility] John Avalos, [address] [facility],[place] [address], [place], [address], [place] [facility] 03/06/2025 14:35:02
--- OUTSIDE RECORDS SUMMARY | 2025-03-13 15:32 | XMS_ITS | Encounter Summary ---
Author Organization [employer] Address [address] [place] [address] Care Team Providers Care Freight Loading Supervisor Name Role Phone Donta Mike MD Primary Care Prov ider Encounter Details Date Type Department Care Team (Late st Contact Info) Description 03/13/2025 Orders Only [facility] External Provider, [facility] Social History Tobacco Use Types Packs/Day Years [...] as of this encounter Plan of Treatment Not on file documented as of this encounter Procedures Procedure Name Priority Date/Time Associated Diagnosis Comments US SCROTUM Routine 03/13/2025 12:35 PM EST documented in this encounter Results * US Scrotum (03/13/2025 12:35 PM EST) Anatomical Region Laterality Modality Body Ultrasound 03/13/2025 12:3 5 PM EST Narrative 03/13/2025 1:02 PM EST [place] [address] Ultrasound Report Signed Patient: Javed Kirkpatrick MR#: [id number] : 1960 Acct:[id number] Age/Sex: 64 / M ADM Date: 03/13/25 Loc: . Attending Dr: Rekha KERNS Ordering Physician: Rekha Guillen Date of Service: 03/13/25 Procedure(s): US scrotum Accession Number(s): [id number] cc: Donta Mike MD; Rekha Guillen Reason [...] by: Lyle Treadwell MD 03/13/2025 01:00 PM [facility] Dictated By: Lyle Treadwell MD Signed By: <Electronically signed by Lyle Treadwell MD in OV> 03/13/25 1300 DD/ 1235 TD/TT: 03/13/25 1241 Client Care Specialist: Procedure Note Donotuseinterpreter, Image - 03/13/2025 [place] [address] Ultrasound Report Signed Patient: Javed Kirkpatrick MR#: [id number] : 2Acct:[id number] Age/Sex: 64 / MADM Date: 03/13/25 Loc: HO.US Attending Dr: Rekha KERNS Ordering Physician: Rekha Guillen Date of Service: 03/13/25 Procedure(s): US scrotum Accession Number(s): [id number] cc: Donta Mike MD; Rkeha Guillen Reason for Exam: N45.1 - Epididymitis [...] by: Lyle Treadwell MD 03/13/2025 01:00 PM [facility] Dictated By: Lyle Treadwell MD Signed By: <Electronically signed by Lyle Treadwell MD in OV> 03/13/25 1300 DD/ 1235 TD/TT: 03/13/25 1241 Client Care Specialist: us [facility] External Provider IMG US PROCEDURES Edited Result - Final documented in this encounter Visit Diagnoses Not on filedocumented in this encounter Additional Health Concerns Assessment Noted Time PHQ-9 Depression Total Score: 15 025 9:19 AM EDT documented as of this encounter Care Teams Freight Loading Supervisor Relationship Specialty Start Date End Date Donta Mike MD [address] [place] [address] PCP - General Internal Medicine 08/30/24 documented as of this encounter
== END 2025-03-13 12:20 | disposition home or self-care (01) ==
LOC: HO.US 12:19
PROVIDERS: PCP Internal Medicine; Visit Provider Nurse Practitioner Family
DX: N45.1 Epididymitis (principal)
CPT/HCPCS: 76870

== ENCOUNTER → 2025-03-13 12:21 | Outpatient (BNV) | payer OTHER, SELFPAY | PROVIDERS: PCP Internal Medicine; Visit Provider Radiology Diagnostic Radiology | DX: N50.3 Cyst of epididymis (principal) | CPT/HCPCS: 76870 ==